=== PATIENT | male | born 1975 | race Caucasian/White ===

== ENCOUNTER 2023-10-26 11:43 | Emergency (ER) | payer SELFPAY ==
--- NOTE | ~2023-10-26 | XR_ITS ---
EXAMINATION: XR chest 2V DATE: 10/26/2023 12:59 INDICATION: Chest pain. Shortness of breath. TECHNIQUE: Frontal and lateral views of the chest were obtained. COMPARISON: None. FINDINGS: There is no pneumonia, pleural effusion, or pneumothorax. The heart size is normal. IMPRESSION: 1. No acute cardiopulmonary disease. Reviewed, dictated and finalized at location A.
[2023-10-26 11:48] VITALS: BP 124/103; PULSE 70; RESP 14; TEMP 36.4; O2SAT 98
--- NOTE | 2023-10-26 11:48 | ECG_ITS ---
Test Date: 2023-10-26 11:51:21 Measurements Intervals [place] Rate: 73 P: 53 CA: 157 QRS: -24 QRSD: 93 T: 20 QT: 372 QTc: 412 Interpretive Statements SINUS RHYTHM BORDERLINE R WAVE PROGRESSION, ANTERIOR LEADS BASELINE ARTIFACT- I, II, III, AVR, AVL, AVF, V3-V6 BORDERLINE ECG No previous ECG available for comparison Electronically Signed On 10-26-2023 14:16:57 CDT by Jose Ricardo D.O.
[2023-10-26 11:51] VITALS: PULSE 70; O2SAT 98
[2023-10-26 12:00] LABS: Basophils Percent Auto 0.4 % (0.2-1.2); Eosinophils Absolute Auto 0.1 K/mm3 (0-0.3); Eosinophils Percent Auto 0.9 % (0-4.4); Hematocrit 44.5 % (42.0-52.0); Hemoglobin 15.6 g/dL (14.0-18.0); Immature Granulocyte Absolute 0.06 K/mm3 (0.00-0.031); Immature Granulocyte Percent A 0.6 % (0-0.5); Lymphocytes Absolute Auto 1.89 K/mm3 (0.9-3.2); Lymphocytes Percent Auto 18.9 % (18.3-44.2); Mean Corpuscular HGB Conc 35.1 g/dl (32-36); Mean Corpuscular Hemoglobin 29.7 pg (26-34); Mean Corpuscular Volume 84.6 fl (80-100); Mean Platelet Volume 9.7 fl (7.4-10.4); Monocytes Absolute Auto 0.5 K/mm3 (0.1-0.6); Monocytes Percent Auto 4.5 % (2.6-8.5); Neutrophils Absolute Auto 7.5 K/mm3 (1.3-6.7); Neutrophils Percent Auto 74.7 % (45.5-73.1); Platelet Count Result 379 k/mm3 (150-375); Red Blood Count 5.26 M/mm3 (4.6-6.20); Red Cell Distribution Width 12.8 % (11.5-14.5)
[2023-10-26 12:14] LABS: INR 0.9; Partial Thromboplastin Time 27.8 Seconds (22.3-36.8); Prothrombin Time 12.5 Seconds (11.1-14.7)
[2023-10-26 12:16] LABS: Alanine Aminotransferase 30 U/L (6-50); Albumin Level 4.7 g/dL (3.5-5.1); Alkaline Phosphatase 88 U/L (38-126); Anion Gap 13 mmol/L (4-12); Aspartate Amino Transferase 23 U/L (17-59); Bilirubin,Total 0.5 mg/dL (0.2-1.3); Blood Urea Nitrogen 14 mg/dL (9-20); Calcium 8.9 mg/dL (8.4-10.2); Carbon Dioxide 19 mmol/L (22-30); Chloride 101 mmol/L (98-107); Estimated CRCL calculation 119 ml/min; Estimated Glomerular Filt Rate > 60; Glucose 312 mg/dL (65-110); Lipase 127 U/L (23-300); Potassium 3.8 mmol/L (3.4-5.0); Sodium 133 mmol/L (137-145)
[2023-10-26] MEDS: SODIUM CHLORIDE 0.9% IV 1,000 ML 999 ML IV CONT (12:16)
[2023-10-26] MEDS: ONDANSETRON INJ 4 MG/2 ML VIAL IV PUSH (12:17)
[2023-10-26] MEDS: MORPHINE SULFATE (*CRX) 4 MG/ML INJ IV PUSH (12:18)
[2023-10-26 12:27] LABS: Troponin I < 0.012 ng/mL (0.000-0.034)
[2023-10-26 12:33] VITALS: BP 141/106; PULSE 88; RESP 14; O2SAT 99
--- NOTE | 2023-10-26 13:35 | ED.GENADULT ---
HPI - General Adult General Chief complaint: Chest Pain Stated complaint: chest pain Time Seen by Provider: 10/26/23 11:56 History of Present Illness HPI narrative: Patient is a 48-year-old male who presents ER with nausea and vomiting. Began this morning. Has had similar episodes in the past. He was at [facility] a couple weeks ago and diagnosed with acid reflux. He has been taking Pepto-Bismol and no other medications. He originally improved with GI cocktail. Patient has history of diabetes but is untreated. He smokes marijuana regularly in the last use was last night. No abdominal pain he does have pressure moving up into his chest associated with this vomiting. No diarrhea or constipation. Denies urinary symptoms. No alleviating factors this morning Related Data Allergies Allergy/AdvReac Type Severity Reaction Status Date / Time No Known Allergies Allergy Verified 10/26/23 11:56 Review of Systems Review of Systems: All systems reviewed & are unremarkable except as noted in HPI and below Constitutional: Constitutional: Reports no additional constitutional complaints ENT: Reports system reviewed and no additional complaints, except as documented Cardiovascular: Cardiovascular: Reports chest pain, Denies rapid heart rate and Denies radiating jaw, neck or arm pain Respiratory: Respiratory: Reports no additional respiratory complaints Gastrointestinal: Gastrointestinal: Reports abdominal pain, Denies constipation, Reports heartburn, Denies diarrhea, Reports nausea and Reports vomiting Genitourinary: Genitourinary: Reports no additional male genitourinary complaints Neurologic: Reports system reviewed and no additional complaints, except as documented PMFSH Past Medical History Medical History (Updated 10/26/23 @ 15:25 by Connor Strauss MD) Diabetes Surgical History Surgical History (Updated 10/26/23 @ 14:45 by Connor Strauss MD) No pertinent past surgical history Exam Narrative: GENERAL: Uncomfortable-appearing, well-nourished, and in no acute distress. HEAD: Normocephalic, atraumatic. ENT: Mucous membranes moist. CHEST: Clear to auscultation. No respiratory distress. HEART: Regular rate and rhythm. Normal peripheral pulses. ABDOMEN: Soft, nontender, nondistended. EXTREMITIES: Normal range of motion. No edema. SKIN: Warm, dry, no rash. NEURO: Alert and oriented x3. PSYCH: Normal mood and affect. Course Course Emergency Course: Recommend f/u with a PCP, significant improvement with reglan, will d/c with a rx. Discussed needs f/u for group home tx of elevated glucose. Troponin negative x 2. Vital Signs Vital signs: Vital Signs Temperature 97.6 F 10/26/23 11:48 Pulse Rate 70 10/26/23 11:48 Respiratory Rate 14 10/26/23 11:48 Blood Pressure 124/103 H 10/26/23 11:48 Pulse Oximetry 98 10/26/23 11:48 Oxygen Delivery Room Air 10/26/23 11:48 Temperature 97.6 F 10/26/23 11:48 Pulse Rate 72 10/26/23 14:50 Respiratory Rate 15 10/26/23 14:50 Blood Pressure 132/85 10/26/23 14:50 Pulse Oximetry 95 10/26/23 14:50 Oxygen Delivery Room Air 10/26/23 11:51 Medical Decision Making Vital Signs Vital Signs: Vital Signs Temperature 97.6 F 10/26/23 11:48 Pulse Rate 70 10/26/23 11:48 Respiratory Rate 14 10/26/23 11:48 Blood Pressure 124/103 H 10/26/23 11:48 Pulse Oximetry 98 10/26/23 11:48 Oxygen Delivery Room Air 10/26/23 11:48 Temperature 97.6 F 10/26/23 11:48 Pulse Rate 72 10/26/23 14:50 Respiratory Rate 15 10/26/23 14:50 Blood Pressure 132/85 10/26/23 14:50 Pulse Oximetry 95 10/26/23 14:50 Oxygen Delivery Room Air 10/26/23 11:51 Lab Data 10/26/23 11:52 10/26/23 11:52 Labs: Lab Results 10/26/23 10/26/23 Range/Units 11:52 14:46 WBC 10.0 (4.5-10.0) K/mm3 RBC 5.26 (4.6-6.20) M/mm3 Hgb 15.6 (14.0-18.0) g/dL Hct 44.5 (42.0-52.0) % MCV 84.6
[2023-10-26] MEDS: BELLADONNA ALK/PHENOB ELIX 10 ML, MAG HYDROX/ALUMINUM HYD/SIMETH 30 ML, LIDOCAINE HCL 2... PO (13:44)
[2023-10-26 13:46] VITALS: BP 150/110; PULSE 59; RESP 14; O2SAT 100
[2023-10-26] MEDS: METOCLOPRAMIDE HCL INJ 10 MG/2 ML VIAL IV PUSH (14:10)
[2023-10-26 14:50] VITALS: BP 132/85; PULSE 72; RESP 15; O2SAT 95
--- NOTE | 2023-10-26 14:54 | ECG_ITS ---
Test Date: 2023-10-26 14:52:56 Measurements Intervals [place] Rate: 71 P: 50 VT: 170 QRS: -59 QRSD: 105 T: 32 QT: 388 QTc: 424 Interpretive Statements SINUS RHYTHM LEFT AXIS DEVIATION PATTERN CONSISTENT WITH PULMONARY DISEASE CONSIDER INFERIOR INFARCT, AGE INDETERMINATE ABNORMAL ECG Compared to ECG 10/26/2023 11:51:21 NO SIGNIFICANT CHANGE Electronically Signed On 10-26-2023 18:16:43 CDT by Jose Ricardo D.O.
[2023-10-26 15:13] LABS: Troponin I < 0.012 ng/mL (0.000-0.034)
== END 2023-10-26 15:45 | disposition home or self-care (01) ==
PROVIDERS: Emergency Medicine; Emergency Provider Emergency Medicine
DX: R11.2 Nausea with vomiting, unspecified (principal); E11.9 Type 2 diabetes mellitus without complications
CPT/HCPCS: 36415; 71046; 80053; 83690; 84484; 85025; 85610; 85730; 93005; 96361; 96374; 96375; 99284; A9270; J2270; J2405; J2765; J7030

== ENCOUNTER 2024-04-04 11:49 | Observation (INO) | payer SELFPAY ==
--- NOTE | ~2024-04-04 | CT_ITS ---
EXAMINATION: CT abdomen pelvis w con DATE: 04/04/2024 12:55 INDICATION: Abdominal pain, nausea and vomiting TECHNIQUE: Computed tomography (CT) of the abdomen and pelvis was performed with 100 mL Omnipaque-350 intravenous contrast. Automated exposure control and iterative reconstruction technique were employe d. The dose-length product was 1375.31 mGy-cm. COMPARISON: None FINDINGS: Calcified granuloma and mild discoid atelectasis in the lingula. Heart size is normal. No pericardial or pleural effusion. Heterogeneous attenuation of the liver with geographic region of subtly decreas ed attenuation the right hepatic lobe suggesting underlying hepatic steatosis. Within this region the re is a 2.5 cm 1 masslike region of higher attenuation with central focus of more prominent enhanceme nt the right now. Gallbladder, spleen, pancreas, bilateral adrenal glands and right foraminal and kid neys are normal. Bowels including the appendix are normal. Decompressed bladder is unremarkable. Smal l bilateral fat-containing inguinal hernias. Very small fat-containing umbilical hernia. No free intr aperitoneal gas or fluid. No pathologically enlarged abdominal or pelvic lymphadenopathy. Partially l umbarized S1 segment with 5 more cephalad nonrib-bearing lumbar segments. IMPRESSION: 1. No acute intra-abdominal/pelvic process. 2. Indeterminate 2.5 cm centrally enhancing lesion in the right hepatic lobe which could represent ne oplasm either benign or less likely malignant. Recommend further evaluation with multiphase pre and p ostcontrast MRI. 3. Small bilateral fat-containing inguinal hernias. Reviewed, dictated and finalized at location A. EGEE OPERATOR IMPRESSION: 1. No acute intra-abdominal/pelvic process. 2. Indeterminate 2.5 cm centrally enhancing lesion in the right hepatic lobe wh ich could represent neoplasm either benign or less likely malignant. Recommend further evaluation with multiphase pre and postcontrast MRI. 3. Small bilateral fat-containing inguinal hernias.
--- NOTE | ~2024-04-04 | MR_ITS ---
EXAMINATION: MR abdomen wo/w con DATE: 04/05/2024 14:03 INDICATION: 2.5 cm right hepatic lobe lesion TECHNIQUE: Magnetic resonance imaging (MRI) of the abdomen was performed without and with 20 mL Multi jesus intravenous contrast. Sequences included coronal T2-weighted SS-FSE, coronal and axial FS 2D-F IESTA, axial STIR FSE, axial T2-weighted SS-FSE, axial T2-weighted FS SS-FSE, axial diffusion-weighte d SE, axial dual-echo T1-weighted FSPGR, and axial and coronal T1-weighted LAVA. Postcontrast axial T 1-weighted LAVA images were obtained in a time course. Postcontrast coronal T1-weighted LAVA images w ere obtained. COMPARISON: CT dated 04/04/2024 FINDINGS: Heart size is normal. No pericardial or pleural effusion. There is a large region of hepatic steatosi s occupying the majority of segments 5 and 8 of the liver. Within segment 8 of the liver is the lesio n of concern identified on prior CT measuring roughly 2.3 cm in maximal diameter. The lesion has a ta rgetoid appearance with an outer rim of focal fatty sparing with early arterial enhancement which inc orporates on the subsequent images consistent with transient hepatic intensity difference. Within thi s peripheral band region is the true periphery of the lesion which measures 1.7 x 1.1 cm and which de monstrates early peripheral puddling of contrast which fills in on the more delayed imaging and which persists through the 10 minutes of imaging consistent with a hemangioma. There is a second 8 mm ryan ngioma more caudally in segment 5 of the liver which is T2 hyperintense and without discernible enhan cement on the early dynamic phase postcontrast imaging but which demonstrates enhancement on the 5 an d 10 minute delayed imaging. Gallbladder, spleen, pancreas, bilateral adrenal glands and kidneys are normal. Visualized portion of the bowels including the appendix are unremarkable. No pathologically e nlarged abdominal lymphadenopathy. Bones are unremarkable with normal marrow signal throughout. IMPRESSION: 1. Large geographic region of diffuse hepatic steatosis in segments 5 and 8 the liver containing a co uple hemangiomas with characteristic enhancement pattern. The larger hemangioma in segment 8 measures 1.7 x 1.1 cm which along with an associated peripheral rim of focal fatty sparing with transient hep atic intensity difference corresponds to the lesion of concern on prior CT. Reviewed, dictated and finalized at location A. AND BEVERAGE ORDER CLERK IMPRESSION: 1. Large geographic region of diffuse hepatic steatosis in segments 5 and 8 the liver containing a couple hemangiomas with characteristic enhancement pattern. The larger hemangioma in segment 8 measures 1.7 x 1.1 cm which along with an a ssociated peripheral rim of focal fatty sparing with transient hepatic intensit y difference corresponds to the lesion of concern on prior CT.
[2024-04-04 11:59] VITALS: BP 107/69; PULSE 108; RESP 16; TEMP 36.2; O2SAT 98
[2024-04-04 12:17] LABS: Basophils Percent Auto 0.3 % (0.2-1.2); Eosinophils Percent Auto 0.1 % (0-4.4); Hematocrit 49.5 % (42.0-52.0); Hemoglobin 17.4 g/dL (14.0-18.0); Immature Granulocyte Absolute 0.05 K/mm3 (0.00-0.031); Immature Granulocyte Percent A 0.4 % (0-0.5); Lymphocytes Absolute Auto 1.52 K/mm3 (0.9-3.2); Lymphocytes Percent Auto 12.2 % (18.3-44.2); Mean Corpuscular HGB Conc 35.2 g/dl (32-36); Mean Corpuscular Hemoglobin 30.1 pg (26-34); Mean Corpuscular Volume 85.6 fl (80-100); Mean Platelet Volume 9.4 fl (7.4-10.4); Monocytes Absolute Auto 0.5 K/mm3 (0.1-0.6); Monocytes Percent Auto 3.6 % (2.6-8.5); Neutrophils Absolute Auto 10.3 K/mm3 (1.3-6.7); Neutrophils Percent Auto 83.4 % (45.5-73.1); Platelet Count Result 383 k/mm3 (150-375); Red Blood Count 5.78 M/mm3 (4.6-6.20); White Blood Count 12.4 K/mm3 (4.5-10.0)
[2024-04-04] MEDS: ONDANSETRON INJ 4 MG/2 ML VIAL IV PUSH (12:17)
[2024-04-04 12:31] LABS: Alanine Aminotransferase 44 U/L (6-50); Alkaline Phosphatase 95 U/L (38-126); Anion Gap 16 mmol/L (4-12); Aspartate Amino Transferase 33 U/L (17-59); Bilirubin,Total 0.9 mg/dL (0.2-1.3); Blood Urea Nitrogen 18 mg/dL (9-20); Calcium 10.8 mg/dL (8.4-10.2); Carbon Dioxide 19 mmol/L (22-30); Chloride 97 mmol/L (98-107); Estimated CRCL calculation 89 ml/min; Estimated Glomerular Filt Rate > 60; Glucose 437 mg/dL (65-110); Lipase 101 U/L (23-300); Potassium 4.4 mmol/L (3.4-5.0); Sodium 132 mmol/L (137-145)
[2024-04-04 12:57] LABS: Add Urine Microscopic? YES; Appearance Urine Clear (Clear); Bacteria Urine None Seen /hpf; Bilirubin Urine Negative (Negative); Blood Urine Negative (Negative); Color Urine Yellow (Yellow); Glucose Urine UA 3+ mg/dL (Negative); Ketones Urine 3+ mg/dL (Negative); Leukocyte Esterase Ur Negative LEU/UL (Negative); Nitrate Urine Negative (Negative); Non Pathogenic Casts 0-2; Protein Urine 2+ mg/dL (Negative); RBC Urine 0-2 /hpf (0-2); Squamous Epithelial Cell Urine None Seen /hpf (Few); Urobilinogen Urine 0.2 mg/dL (<2.0); WBC Urine 0-5 /hpf (0-3); pH Urine 5.5 (5.0-9.0)
[2024-04-04] MEDS: SODIUM CHLORIDE 0.9% IV 1,000 ML 999 ML IV CONT ×3 (13:02→14:34)
[2024-04-04] MEDS: MORPHINE SULFATE (*CRX) 4 MG/ML INJ IV PUSH (13:03)
[2024-04-04] MEDS: PROCHLORPERAZINE EDISYLATE 10 MG/2 ML VIAL IV PUSH (13:03)
[2024-04-04] MEDS: PANTOPRAZOLE SODIUM IV 40 MG VIAL IV PUSH (13:03)
[2024-04-04 13:07] VITALS: BP 168/113; PULSE 101; RESP 16; O2SAT 91
[2024-04-04 13:25] VITALS: BP 156/103; PULSE 102; RESP 16; O2SAT 91
[2024-04-04 13:27] LABS: Beta-Hydroxybutyrate/Acetoacetate 1.73 mmol/L (0.02-0.27)
[2024-04-04 13:29] LABS: Fractional Inspired Oxygen 21 %; HCO3 VBG 21.2 mEq/l (24.0-30.0); PCO2 VBG 37.5 mmHg (42.0-48.0); PO2 VBG 39.8 mmHg (35.0-45.0)
[2024-04-04 13:34] LABS: Device ROOM AIR
--- NOTE | 2024-04-04 13:43 | ED.GENADULT ---
HPI - General Adult General Chief complaint: Nausea/Vomiting/Diarrhea Stated complaint: Vomiting Time Seen by Provider: 04/04/24 12:27 History of Present Illness HPI narrative: patient is a 48-year-old gentleman who presents emergency department with chief complaint of nausea vomiting and diarrhea. The patient reports the last 3 days been unable to keep anything down reports that he has had liquid stool and reports that he has had epigastric discomfort and a feeling of esophageal reflux. The patient reports that he has had not been officially diagnosed with diabetes but has a significant family history for diabetes. Related Data Allergies Allergy/AdvReac Type Severity Reaction Status Date / Time No Known Allergies Allergy Verified 10/26/23 11:56 Review of Systems Review of Systems: A 10 system review of systems was completed on the patient and is negative except for what is stated in the HPI. Nursing and ancillary documentation was reviewed. [facility] Past Medical History Medical History (Updated 04/04/24 @ 14:11 by Kady Umanzor PA-C) Morbid obesity Type 2 diabetes mellitus Surgical History Surgical History No pertinent past surgical history Exam Narrative: GENERAL: Well-appearing, well-nourished, and in no acute distress. HEAD: Normocephalic, atraumatic. EYES: PERRLA and EOMI. ENT: Nares clear, no rhinorrhea or epistaxis. Mucous membranes moist. NECK: Supple. CHEST: Clear to auscultation. No respiratory distress. HEART: Regular rate and rhythm. No murmur heard. Normal peripheral pulses. ABDOMEN: Soft, nontender, nondistended, normal active bowel sounds. EXTREMITIES: Normal range of motion. No edema. SKIN: Warm, dry, no rash. NEURO: No focal deficits. Alert and oriented x3. PSYCH: Normal mood and affect. Course Vital Signs Vital signs: Vital Signs Temperature 97.2 F L 04/04/24 11:59 Pulse Rate 108 H 04/04/24 11:59 Respiratory Rate 16 04/04/24 11:59 Blood Pressure 107/69 04/04/24 11:59 Pulse Oximetry 98 04/04/24 11:59 Temperature 97.2 F L 04/04/24 11:59 Pulse Rate 105 H 04/04/24 15:32 Respiratory Rate 16 04/04/24 15:32 Blood Pressure 133/80 04/04/24 15:32 Pulse Oximetry 98 04/04/24 15:32 Medical Decision Making MDM Narrative Medical decision making narrative: facial by includes hydration pancreatitis, colitis, diverticulitis laboratory studies were obtained on the showed a CBC with white count of 12 4 electrolytes showed a sodium 132 CO2 was 19 and a gap of 16 creatinine was 1.1 glucose was 437 liver enzymes were normal beta hydroxybutyrate was 1.73 urinalysis showed 2+ protein specific gravity 1.040 glucose of 3+ and 3+ ketones VBG showed a pH of 7.370 patient received 2 L of normal saline boluses Vital Signs Vital Signs: Vital Signs Temperature 97.2 F L 04/04/24 11:59 Pulse Rate 108 H 04/04/24 11:59 Respiratory Rate 16 04/04/24 11:59 Blood Pressure 107/69 04/04/24 11:59 Pulse Oximetry 98 04/04/24 11:59 Temperature 97.2 F L 04/04/24 11:59 Pulse Rate 105 H 04/04/24 15:32 Respiratory Rate 16 04/04/24 15:32 Blood Pressure 133/80 04/04/24 15:32 Pulse Oximetry 98 04/04/24 15:32 Lab Data 04/04/24 12:12 04/04/24 12:12 Labs: Lab Results 04/04/24 04/04/24 04/04/24 Range/Units 12:12 12:48 14:29 WBC 12.4 H (4.5-10.0) K/mm3 RBC 5.78 (4.6-6.20) M/mm3 Hgb 17.4 (14.0-18.0) g/dL Hct 49.5 (42.0-52.0) % MCV 85.6 (80-100) fl MCH 30.1 (26-34) pg MCHC 35.2 (32-36) g/dl RDW 13.0 (11.5-14.5) % Plt Count 383 H (150-375) k/mm3 MPV 9.4 (7.4-10.4) fl Immature Gran % (Auto) 0.4 (0-0.5) % Neut % (Auto) 83.4 H (45.5-73.1) % Lymph % (Auto) 12.2 L (18.3-44.2) % [place] % (Auto) 3.6 (2.6-8.5) % Eos % (Auto) 0.1 (0-4.4) % Baso % (Auto) 0.3 (0.2-1.2) % Lymph # (Auto) 1.52 (0.9-3.2) K/mm3 [place] # (Auto) 0.5 (0.1-0.6) K/mm3 Eos # (Auto) 0.0 (0-0.3) K/mm3 Baso # (Auto) 0.0 (0.0-0.1) K/mm3 Abs Immat Gran (auto) 0.05 H (0.00-0.031) K/mm3 Absolute Neuts (auto) 10.3 H (1.3-6.7) K/mm3 Absolute Nucleated RBC 0.000 (0.0-0.012) K/mm3 Nucleated RBC % 0.0 (0.0-0.2) % Sodium 132 L (137-145) mmol/L Potassium 4.4 (3.4-5.0) mmol/L Chloride 97 L (98-107) mmol/L Carbon Dioxide 19 L (22-30) mmol/L Anion Gap 16 H (4-12) mmol/L BUN 18 (9-20) mg/dL Creatinine 1.10 (0.7-1.3) mg/dL Estim Creat Clear Calc 89 ml/min Estimated GFR > 60 (59 - ) Glucose 437 H (65-110) mg/dL POC Capillary Glucose 349 H (65-105) mg/dl Hemoglobin A1c 10.5 H (<5.7) % Calcium 10.8 H (8.4-10.2) mg/dL Total Bilirubin 0.9 (0.2-1.3) mg/dL AST 33 (17-59) U/L ALT 44 (6-50) U/L Alkaline Phosphatase 95 (38-126) U/L Total Protein 8.0 (6.3-8.2) g/dL Albumin 5.0 (3.5-5.1) g/dL Lipase 101 (23-300) U/L Beta-Hydroxybutyrate/Acetoacetate 1.73 H (0.02-0.27) mmol/L Urine Color Yellow (Yellow) Urine Appearance Clear (Clear) Urine pH 5.5 (5.0-9.0) Ur Specific [place] 1.040 H (1.001-1.035) Urine Protein 2+ H (Negative) mg/dL Urine Glucose (UA) 3+ H (Negative) mg/dL Urine Ketones 3+ H (Negative) mg/dL Ur Blood (Man) Negative (Negative) Urine Nitrate Negative (Negative) Urine Bilirubin Negative (Negative) Urine Urobilinogen 0.2 (<2.0) mg/dL Leukocyte Esterase Rfl Negative (Negative) MAISHA/UL Urine RBC 0-2 (0-2) /hpf Urine WBC 0-5 (0-3) /hpf Ur Squamous Epith Cells None seen (Few) /hpf Urine Bacteria None seen /hpf Urine Casts 0-2 ABG Data ABG results: 04/04/24 13:15 VBG pH 7.370 VBG pCO2 37.5 L VBG pO2 39.8 VBG HCO3 21.2 L O2 Delivery Device Room air O2 Liters/Min Not Reportable FiO2 21 Discharge Plan Discharge Clinical Impression: Nausea vomiting and diarrhea, Acute hyperglycemia Patient Disposition: Still a Patient Condition: Stable Time of Disposition: 13:46
--- NOTE | 2024-04-04 14:05 | PM.IMHP ---
H&P: HPI History of Present Illness Date/Time: 04/04/24 15:00 Chief Complaint: Nausea and vomiting. Narrative: This is a 48-year-old male with untreated type 2 diabetes mellitus who presented to the emergency department via private vehicle for evaluation of nausea and vomiting. The patient provides the following history. He has not been feeling well for 3 days with a burning sensation in the epigastric region as well as nausea, vomiting, and now dry heaves. He has not been able to hold down any food or drink in this same time frame. Stools have been loose but are slowing down. He also endorses polydipsia and polyuria. He denies fever, chills, sweats, headache, neck ache, sinus congestion, sore throat, chest pain, shortness of breath, sinus congestion, cough, melena, hematochezia, dysuria, blurry vision, and nonhealing wounds. In the ED: He was afebrile on arrival. He has been in a sinus tachycardia in the low 100s. Blood pressures have been running a bit high. Labs were significant for WBC count of 12.4, sodium 132, chloride 97, carbon dioxide 18, anion gap 16, BUN 18, creatinine 1.10, glucose 437, calcium 10.8, beta hydroxybutyrate 1.73. Urinalysis was positive for 2+ protein, 3+ glucose, and 3+ ketones. Abdomen pelvis CT showed no acute intra-abdominal or pelvic process but an indeterminate 2.5 cm right hepatic lobe lesion was seen. He received 2 L normal saline, pantoprazole 40 mg, prochlorperazine 10 mg, and ondansetron 4 mg and he continues to have nausea and vomiting. He is being admitted in this setting for further treatment. Review of Systems Review of Systems: 12 systems were reviewed and are negative except for as per HPI. [facility] Past Medical History Medical History Morbid obesity Type 2 diabetes mellitus Surgical History Surgical History No pertinent past surgical history Family History Family History (Updated 04/04/24 @ 20:14 by Kady Umanzor PA-C) Other Diabetes mellitus Social History Social History (Updated 04/04/24 @ 20:15 by Kady Umanzor PA-C) Social History: Surrogate medical decision maker: Marcelle Velez, mother. Code status: Full code. Smoking status: Former smoker Alcohol intake: never Substance use: current Substance use type: marijuana Do You Feel Safe in your Home?: Yes Lack of Transportation: No Lack of Food: Never True Current Housing: I Have Housing Concerned About Future Housing: No Difficulty Paying Gas/Electric Bills: No Difficulty Paying for Meds: No Currently Unemployed: No Education: Associate Degree Difficulty w/ Childcare or Family Care: No Additional living arrangements comments: Lives with family in [place]. 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 Spiritual care concerns: No Meds Home Medications and Allergies Home Medications ?Medication ?Instructions ?Recorded ?Confirmed ?Type No Home Medications 04/04/24 04/04/24 History Allergies Allergy/AdvReac Type Severity Reaction Status Date / Time No Known Allergies Allergy Verified 10/26/23 11:56 Vital Signs Vital Signs - 24 hr 04/04/24 11:59 04/04/24 13:07 04/04/24 13:25 Temperature 97.2 F L Pulse Rate 108 H 101 H 102 H Respiratory Rate 16 16 16 Blood Pressure 107/69 168/113 H 156/103 H Pulse Oximetry 98 91 91 Exam Narrative: General: Mildly ill-appearing male supine in bed in no distress. Weight: 115 kg. BMI: 40.9 HEENT: PERRL, EOMI. Sclera anicteric. Tacky mucous membranes. Neck: Supple. Exam limited due to neck circumference. Respiratory: Lungs are clear to auscultation bilaterally. Cardiovascular: Regular rate and rhythm with S1-S2. Gastrointestinal: Abdomen is soft, obese, and nondistended with positive bowel sounds. Mildly tender to deeper palpation epigastric region. No guarding or rebound tenderness. Skin: Warm and dry. Extremities: No cyanosis, clubbing, or edema. Radial and pedal pulses intact. Neurological: Alert. Cranial nerves 2-12 are grossly intact. No gross focal deficits to casual conversation. Psychiatric: Appropriate mood and affect. H&P: Results Labs Labs: Short CBC 04/04/24 Range/Units 12:12 WBC 12.4 H (4.5-10.0) K/mm3 Hgb 17.4 (14.0-18.0) g/dL Hct 49.5 (42.0-52.0) % Plt Count 383 H (150-375) k/mm3 BMP 04/04/24 12:12 Sodium 132 L Potassium 4.4 Chloride 97 L Carbon Dioxide 19 L BUN 18 Creatinine 1.10 Glucose 437 H Calcium 10.8 H Liver Function 04/04/24 Range/Units 12:12 Total Bilirubin 0.9 (0.2-1.3) mg/dL AST 33 (17-59) U/L ALT 44 (6-50) U/L Alkaline Phosphatase 95 (38-126) U/L Albumin 5.0 (3.5-5.1) g/dL Urine 04/04/24 Range/Units 12:48 Urine Color Yellow (Yellow) Urine Appearance Clear (Clear) Urine pH 5.5 (5.0-9.0) Ur Specific [place] 1.040 H (1.001-1.035) Urine Protein 2+ H (Negative) mg/dL Urine Glucose (UA) 3+ H (Negative) mg/dL ABG ABG results: 04/04/24 13:15 VBG pH 7.370 VBG pCO2 37.5 L VBG pO2 39.8 VBG HCO3 21.2 L O2 Delivery Device Room air O2 Liters/Min Not Reportable FiO2 21 Assessment and Plan Assessment and plan (1) Type 2 diabetes mellitus with hyperglycemia: Code(s): E11.65 - Type 2 diabetes mellitus with hyperglycemia Status: Acute (2) Dehydration: Code(s): E86.0 - Dehydration Status: Acute (3) Elevated blood pressure reading: Code(s): R03.0 - Elevated blood-pressure reading, without diagnosis of hypertension Status: Acute (4) Lesion of right lobe of liver: Code(s): K76.9 - Liver disease, unspecified Status: Acute (5) Morbid obesity: Code(s): E66.01 - Morbid (severe) obesity due to excess calories Status: Acute Plan The patient presented to the emergency department for evaluation of nausea and vomiting as detailed HPI. Labs, imaging, EKG, and all reports were personally reviewed. He is on the verge of mild diabetic ketoacidosis with hyperglycemia, ketonuria, mildly elevated beta hydroxybutyrate, and anion gap 16. pH is above 7.370 and I think is numbers will improve with aggressive IV fluids and sliding scale insulin. Hemoglobin A1c is pending but I suspect he will need to be started on long-acting insulin initially. Consult dietitian and healthcare educator. Blood pressures are running a bit high and will be monitored closely as he may very well need to be started on antihypertensives. Radiologist recommends pre and post contrast MRI of the abdomen to evaluate a 2.5 cm right hepatic lobe lesion. He does not have a primary care provider and will need someone to follow-up with on discharge. His home medications will be reviewed and resumed as appropriate. Findings and treatment plan were discussed with the patient. Questions were solicited and answered to satisfaction. The patient's medical management will be taken over by the hospitalist team in a.m. Quality VTE Prophylaxis VTE prophylaxis: pharmacologic ordered The patient has been admitted under observation status. Hospitalist MIPS Advance Care Plan I have confirmed that the patient's Advanced Care Plan is present, code status is documented, or surrogate decision maker is listed in patient medical record.: Yes Medication Reconciliation I have utilized all available resources to obtain, update and review the patients current medications (includes all prescriptions, OTC, herbals, cannabis, and nutritional supplements).: Yes
[2024-04-04 14:31] LABS: Glucose Point of Care 349 mg/dl (65-105)
[2024-04-04 14:38] LABS: Hemoglobin A1C 10.5 % (<5.7)
[2024-04-04 15:08] LABS: Glucose Point of Care 322 mg/dl (65-105)
[2024-04-04 15:32] VITALS: BP 133/80; PULSE 105; RESP 16; O2SAT 98
[2024-04-04] MEDS: INSULIN ASPART (*BKC) 100 UNITS/ML SUB-Q ×3 (15:33→22:36)
[2024-04-04 16:19] LABS: Anion Gap 5 mmol/L (4-12); Blood Urea Nitrogen 14 mg/dL (9-20); Calcium 7.7 mg/dL (8.4-10.2); Carbon Dioxide 21 mmol/L (22-30); Chloride 105 mmol/L (98-107); Estimated CRCL calculation 120 ml/min; Estimated Glomerular Filt Rate > 60; Glucose 289 mg/dL (65-110); Potassium 4.6 mmol/L (3.4-5.0); Sodium 131 mmol/L (137-145)
[2024-04-04 16:39] LABS: Glucose Point of Care 290 mg/dl (65-105)
[2024-04-04 17:00] VITALS: BP 125/92; BP 139/87; PULSE 104; PULSE 88; RESP 16; RESP 18; O2SAT 100; O2SAT 98
[2024-04-04 17:23] LABS: Glucose Point of Care 265 mg/dl (65-105)
[2024-04-04 17:39] VITALS: BMI 40.9
--- NOTE | 2024-04-04 17:47 | ADMGEN ---
This patient, Jigar Velez, was admitted to 3 [facility] Surg Room 315-01. Patient/family oriented to hospital policies and general routines including ID bracelet, bed and alarms, visiting hours, pain management, procedures, bathroom and other care routines, personal items, smoking policy, room service/diet, and visiting hours. Information on how to activate the Rapid Response Team has been discussed. Patient/Family are encouraged to report perceived risks to care and to ask questions if they do not understand what they are told or what they should do.
[2024-04-04] MEDS: BELLADONNA ALK/PHENOB ELIX 10 ML, MAG HYDROX/ALUMINUM HYD/SIMETH 30 ML, LIDOCAINE 2% VI... PO (18:35)
[2024-04-04 20:00] VITALS: BP 113/65; PULSE 97; RESP 16; TEMP 36.4; O2SAT 95
[2024-04-04] MEDS: INSULIN GLARGINE (*BKC) 100 UNITS/ML 23 UNITS SUB-Q (22:35)
[2024-04-04] MEDS: LACTATED RINGERS 1,000 ML 100 ML IV CONT (22:36)
[2024-04-04 23:02] LABS: Glucose Point of Care 248 mg/dl (65-105)
[2024-04-05] VITALS (7 sets, daily range): BP systolic 123–144; BP diastolic 78–105; PULSE 61–100; RESP 14–20; TEMP 36.4–37.1; O2SAT 96–100
[2024-04-05] MEDS: ACETAMINOPHEN 325 MG TABLET 650 MG PO (02:35)
[2024-04-05 06:16] LABS: Basophils Absolute Auto 0.1 K/mm3 (0.0-0.1); Basophils Percent Auto 0.5 % (0.2-1.2); Eosinophils Absolute Auto 0.1 K/mm3 (0-0.3); Hematocrit 43.7 % (42.0-52.0); Hemoglobin 14.8 g/dL (14.0-18.0); Immature Granulocyte Absolute 0.04 K/mm3 (0.00-0.031); Immature Granulocyte Percent A 0.4 % (0-0.5); Lymphocytes Absolute Auto 4.85 K/mm3 (0.9-3.2); Lymphocytes Percent Auto 43.8 % (18.3-44.2); Mean Corpuscular HGB Conc 33.9 g/dl (32-36); Mean Corpuscular Hemoglobin 29.8 pg (26-34); Mean Corpuscular Volume 88.1 fl (80-100); Mean Platelet Volume 9.2 fl (7.4-10.4); Monocytes Absolute Auto 0.7 K/mm3 (0.1-0.6); Monocytes Percent Auto 5.9 % (2.6-8.5); Neutrophils Absolute Auto 5.4 K/mm3 (1.3-6.7); Neutrophils Percent Auto 48.4 % (45.5-73.1); Platelet Count Result 281 k/mm3 (150-375); Red Blood Count 4.96 M/mm3 (4.6-6.20); Red Cell Distribution Width 12.8 % (11.5-14.5); White Blood Count 11.1 K/mm3 (4.5-10.0)
[2024-04-05 06:28] LABS: Anion Gap 2 mmol/L (4-12); Blood Urea Nitrogen 13 mg/dL (9-20); Calcium 8.8 mg/dL (8.4-10.2); Carbon Dioxide 30 mmol/L (22-30); Chloride 104 mmol/L (98-107); Estimated CRCL calculation 107 ml/min; Estimated Glomerular Filt Rate > 60; Glucose 170 mg/dL (65-110); Magnesium 1.7 mg/dL (1.6-2.3); Potassium 3.8 mmol/L (3.4-5.0); Sodium 136 mmol/L (137-145)
[2024-04-05 07:46] LABS: Glucose Point of Care 194 mg/dl (65-105)
[2024-04-05] MEDS: ONDANSETRON INJ 4 MG/2 ML VIAL IV PUSH (09:34)
--- NOTE | 2024-04-05 10:42 | PM.IMPN ---
Progress Note: A&P Assessment and Plan (1) Type 2 diabetes mellitus with hyperglycemia: Code(s): E11.65 - Type 2 diabetes mellitus with hyperglycemia Status: Acute (2) Dehydration: Code(s): E86.0 - Dehydration Status: Acute (3) Elevated blood pressure reading: Code(s): R03.0 - Elevated blood-pressure reading, without diagnosis of hypertension Status: Acute (4) Lesion of right lobe of liver: Code(s): K76.9 - Liver disease, unspecified Status: Acute (5) Morbid obesity: Code(s): E66.01 - Morbid (severe) obesity due to excess calories Status: Acute Plan Type 2 diabetes with hyperglycemia A1c 10.5 Continue Lantus 23 units, pre meal insulin 7 units, sliding scale insulin with Accu-Cheks. Monitor Diabetic diet natural resources extension educator consulted. Hepatic lesion rule out neoplasm MRI abdomen pending. Obesity counseled about lifestyle modificationi DVT prophylaxis on Sq Lovenox Discharge contingent on MRI Subjective Date/time seen: 04/05/24 10:42 Interval history: COmfortable at bedside MRI pending for hepatic lesion Review of Systems Review of Systems: 12 systems were reviewed and are negative except for as per HPI. Exam Narrative: General: Mildly ill-appearing male supine in bed in no distress. Weight: 115 kg. BMI: 40.9 HEENT: PERRL, EOMI. Sclera anicteric. Tacky mucous membranes. Neck: Supple. Exam limited due to neck circumference. Respiratory: Lungs are clear to auscultation bilaterally. Cardiovascular: Regular rate and rhythm with S1-S2. Gastrointestinal: Abdomen is soft, obese, and nondistended with positive bowel sounds. Mildly tender to deeper palpation epigastric region. No guarding or rebound tenderness. Skin: Warm and dry. Extremities: No cyanosis, clubbing, or edema. Radial and pedal pulses intact. Neurological: Alert. Cranial nerves 2-12 are grossly intact. No gross focal deficits to casual conversation. Psychiatric: Appropriate mood and affect. Objective Data Vital Signs Vital Signs: Vital Signs - 24 hr 04/04/24 11:59 04/04/24 13:07 04/04/24 13:25 Temperature 97.2 F L Pulse Rate 108 H 101 H 102 H Respiratory Rate 16 16 16 Blood Pressure 107/69 168/113 H 156/103 H Pulse Oximetry 98 91 91 Oxygen Delivery Fraction of Inspired Oxygen 04/04/24 15:32 04/04/24 17:00 04/04/24 17:00 Temperature Pulse Rate 105 H 104 H 88 Respiratory Rate 16 16 18 Blood Pressure 133/80 139/87 125/92 H Pulse Oximetry 98 98 100 Oxygen Delivery Fraction of Inspired Oxygen 04/04/24 17:55 04/04/24 20:00 04/05/24 02:45 Temperature 97.6 F 98.1 F Pulse Rate 97 72 Respiratory Rate 16 20 Blood Pressure 113/65 137/93 H Pulse Oximetry 95 99 Oxygen Delivery Room Air Fraction of Inspired Oxygen 04/05/24 06:00 04/05/24 08:00 04/05/24 08:54 Temperature 97.5 F L 98.2 F Pulse Rate 65 61 Respiratory Rate 18 18 Blood Pressure 126/78 136/91 H Pulse Oximetry 96 98 96 Oxygen Delivery Room Air Fraction of Inspired Oxygen 21 Intake/Output Intake/Output: Intake & Output 04/02/24 04/03/24 04/04/24 04/05/24 23:59 23:59 23:59 23:59 Intake Total 3000 740 Output Total 800 Balance 3000 -60 Meds/Results Medications: Active Medications Generic Name Dose Route Start Last Admin Trade Name Freq PRN Reason Stop Dose Admin Acetaminophen 650 mg 04/04/24 14:19 04/05/24 02:35 Acetaminophen 325 Mg Tablet PO 650 mg Q6H PRN Administration Mild Pain (1-3) or Fever Al Hydrox/Mg Hydrox/Simethicone 30 ml 04/05/24 10:01 Mag Hydrox/Al Hydrox/Simeth 30 Ml Udc PO Q6H PRN Indigestion Calcium Carbonate 200 mg 04/04/24 20:19 Calcium Carbonate (Tums) 500 Mg (200 Mg Elemental) PO Q6H PRN Indigestion Dextrose 12.5 gm 04/04/24 16:39 Dextrose 50% 25 Gm/50 Ml Syringe IV PUSH PRN PRN Hypoglycemia Protocol Glucagon 1 mg 04/04/24 16:39 Glucagon For Inj 1 Mg Vial IM PRN PRN Hypoglycemia Protocol Glucose 15 gm 04/04/24 16:39 Glucose Oral Gel 15 Gm Of Glucse In 37.5 Gm Tube PO PRN PRN Hypoglycemia Protocol Dextrose 1,000 mls @ 100 mls/hr 04/04/24 16:39 Dextrose 5% 1,000 Ml IVPB PRN PRN Hypoglycemia Protocol Insulin Aspart 3 - 6 units 04/04/24 17:00 04/04/24 17:17 Insulin Aspart (*Bkc) 100 Units/Ml SUB-Q 4 units TIDWM VENTURA Administration Protocol Insulin Aspart 1 - 3 units 04/04/24 21:00 04/04/24 22:36 Insulin Aspart (*Bkc) 100 Units/Ml SUB-Q 1 units HS VENTURA Administration Protocol Insulin Glargine 23 units 04/04/24 21:00 04/04/24 22:35 Insulin Glargine (*Bkc) 100 Units/Ml 0.2 units/kg (23 units) 23 units SUB-Q Administration [facility] Ondansetron HCl 4 mg 04/04/24 14:19 04/05/24 09:34 Ondansetron Inj 4 Mg/2 Ml Vial IV PUSH 4 mg Q6H PRN Administration Nausea And Vomiting Radiology Results: ITS Impressions Abdomen/Pelvis CT 04/04/24 13:00 IMPRESSION: 1. No acute intra-abdominal/pelvic process. 2. Indeterminate 2.5 cm centrally enhancing lesion in the right hepatic lobe which could represent neoplasm either benign or less likely malignant. Recommend further evaluation with multiphase pre and postcontrast MRI. 3. Small bilateral fat-containing inguinal hernias. Labs Labs: Laboratory Results - last 24 hr 04/04/24 04/04/24 04/04/24 12:12 12:48 13:15 WBC 12.4 H RBC 5.78 Hgb 17.4 Hct 49.5 MCV 85.6 MCH 30.1 MCHC 35.2 RDW 13.0 Plt Count 383 H MPV 9.4 Immature Gran % (Auto) 0.4 Neut % (Auto) 83.4 H Lymph % (Auto) 12.2 L [place] % (Auto) 3.6 Eos % (Auto) 0.1 Baso % (Auto) 0.3 Lymph # (Auto) 1.52 [place] # (Auto) 0.5 Eos # (Auto) 0.0 Baso # (Auto) 0.0 Abs Immat Gran (auto) 0.05 H Absolute Neuts (auto) 10.3 H Absolute Nucleated RBC 0.000 Nucleated RBC % 0.0 VBG pH 7.370 VBG pCO2 37.5 L VBG pO2 39.8 VBG HCO3 21.2 L O2 Delivery Device Room air O2 Liters/Min Not Reportable FiO2 21 Sodium 132 L Potassium 4.4 Chloride 97 L Carbon Dioxide 19 L Anion Gap 16 H BUN 18 Creatinine 1.10 Estim Creat Clear Calc 89 Estimated GFR > 60 Glucose 437 H POC Capillary Glucose Hemoglobin A1c 10.5 H Calcium 10.8 H Magnesium Total Bilirubin 0.9 AST 33 ALT 44 Alkaline Phosphatase 95 Total Protein 8.0 Albumin 5.0 Lipase 101 Beta-Hydroxybutyrate/Acetoacetate 1.73 H Urine Color Yellow Urine Appearance Clear Urine pH 5.5 Ur Specific [place] 1.040 H Urine Protein 2+ H Urine Glucose (UA) 3+ H Urine Ketones 3+ H Ur Blood (Man) Negative Urine Nitrate Negative Urine Bilirubin Negative Urine Urobilinogen 0.2 Leukocyte Esterase Rfl Negative Urine RBC 0-2 Urine WBC 0-5 Ur Squamous Epith Cells None seen Urine Bacteria None seen Urine Casts 0-2 04/04/24 04/04/24 04/04/24 14:29 15:06 15:35 WBC RBC Hgb Hct MCV MCH MCHC RDW Plt Count MPV Immature Gran % (Auto) Neut % (Auto) Lymph % (Auto) [place] % (Auto) Eos % (Auto) Baso % (Auto) Lymph # (Auto) [place] # (Auto) Eos # (Auto) Baso # (Auto) Abs Immat Gran (auto) Absolute Neuts (auto) Absolute Nucleated RBC Nucleated RBC % VBG pH VBG pCO2 VBG pO2 VBG HCO3 O2 Delivery Device O2 Liters/Min FiO2 Sodium 131 L Potassium 4.6 Chloride 105 Carbon Dioxide 21 L Anion Gap 5 BUN 14 Creatinine 0.80 Estim Creat Clear Calc 120 Estimated GFR > 60 Glucose 289 H POC Capillary Glucose 349 H 322 H Hemoglobin A1c Calcium 7.7 L Magnesium Total Bilirubin AST ALT Alkaline Phosphatase Total Protein Albumin Lipase Beta-Hydroxybutyrate/Acetoacetate Urine Color Urine Appearance Urine pH Ur Specific [place] Urine Protein Urine Glucose (UA) Urine Ketones Ur Blood (Man) Urine Nitrate Urine Bilirubin Urine Urobilinogen Leukocyte Esterase Rfl Urine RBC Urine WBC Ur Squamous Epith Cells Urine Bacteria Urine Casts 04/04/24 04/04/24 04/04/24 16:37 17:16 22:31 WBC RBC Hgb Hct MCV MCH MCHC RDW Plt Count MPV Immature Gran % (Auto) Neut % (Auto) Lymph % (Auto) [place] % (Auto) Eos % (Auto) Baso % (Auto) Lymph # (Auto) [place] # (Auto) Eos # (Auto) Baso # (Auto) Abs Immat Gran (auto) Absolute Neuts (auto) Absolute Nucleated RBC Nucleated RBC % VBG pH VBG pCO2 VBG pO2 VBG HCO3 O2 Delivery Device O2 Liters/Min FiO2 Sodium Potassium Chloride Carbon Dioxide Anion Gap BUN Creatinine Estim Creat Clear Calc Estimated GFR Glucose POC Capillary Glucose 290 H 265 H 248 H Hemoglobin A1c Calcium Magnesium Total Bilirubin AST ALT Alkaline Phosphatase Total Protein Albumin Lipase Beta-Hydroxybutyrate/Acetoacetate Urine Color Urine Appearance Urine pH Ur Specific [place] Urine Protein Urine Glucose (UA) Urine Ketones Ur Blood (Man) Urine Nitrate Urine Bilirubin Urine Urobilinogen Leukocyte Esterase Rfl Urine RBC Urine WBC Ur Squamous Epith Cells Urine Bacteria Urine Casts 04/05/24 04/05/24 06:00 07:43 WBC 11.1 H RBC 4.96 Hgb 14.8 Hct 43.7 MCV 88.1 MCH 29.8 MCHC 33.9 RDW 12.8 Plt Count 281 MPV 9.2 Immature Gran % (Auto) 0.4 Neut % (Auto) 48.4 Lymph % (Auto) 43.8 [place] % (Auto) 5.9 Eos % (Auto) 1.0 Baso % (Auto) 0.5 Lymph # (Auto) 4.85 H [place] # (Auto) 0.7 H Eos # (Auto) 0.1 Baso # (Auto) 0.1 Abs Immat Gran (auto) 0.04 H Absolute Neuts (auto) 5.4 Absolute Nucleated RBC 0.000 Nucleated RBC % 0.0 VBG pH VBG pCO2 VBG pO2 VBG HCO3 O2 Delivery Device O2 Liters/Min FiO2 Sodium 136 L Potassium 3.8 Chloride 104 Carbon Dioxide 30 Anion Gap 2 L BUN 13 Creatinine 0.90 Estim Creat Clear Calc 107 Estimated GFR > 60 Glucose 170 H POC Capillary Glucose 194 H Hemoglobin A1c Calcium 8.8 Magnesium 1.7 Total Bilirubin AST ALT Alkaline Phosphatase Total Protein Albumin Lipase Beta-Hydroxybutyrate/Acetoacetate Urine Color Urine Appearance Urine pH Ur Specific [place] Urine Protein Urine Glucose (UA) Urine Ketones Ur Blood (Man) Urine Nitrate Urine Bilirubin Urine Urobilinogen Leukocyte Esterase Rfl Urine RBC Urine WBC Ur Squamous Epith Cells Urine Bacteria Urine Casts Quality VTE Prophylaxis VTE prophylaxis: pharmacologic ordered
[2024-04-05] MEDS: BELLADONNA ALK/PHENOB ELIX 10 ML, MAG HYDROX/ALUMINUM HYD/SIMETH 30 ML, LIDOCAINE 2% VI... PO (11:02)
[2024-04-05 11:24] LABS: Glucose Point of Care 383 mg/dl (65-105)
[2024-04-05] MEDS: INSULIN ASPART (*BKC) 100 UNITS/ML 7 UNITS SUB-Q (12:19)
[2024-04-05] MEDS: ENOXAPARIN 40 MG/0.4 ML SYRINGE SUB-Q (12:20)
[2024-04-05] MEDS: INSULIN ASPART (*BKC) 100 UNITS/ML SUB-Q ×2 (12:21→21:13)
--- NOTE | 2024-04-05 15:34 | P.PNIM_ITS ---
Progress Note: A&P Assessment and Plan (1) Type 2 diabetes mellitus with hyperglycemia: Code(s): E11.65 - Type 2 diabetes mellitus with hyperglycemia Status: Acute Assessment and Plan: - Blood glucose elevated. - Meal time insulin adjusted. - Continue to adjust insulin as needed. - certified breastfeeding educator consulted. (2) Dehydration: Code(s): E86.0 - Dehydration Status: Acute Assessment and Plan: - Likely related to above. - Cr wnl. - Tolerating meals well. - IVF discontinued. (3) Elevated blood pressure reading: Code(s): R03.0 - Elevated blood-pressure reading, without diagnosis of hypertension Status: Acute Assessment and Plan: - Started on Lisinopril. - Monitor and adjust meds as needed. (4) Lesion of right lobe of liver: Code(s): K76.9 - Liver disease, unspecified Status: Acute Assessment and Plan: - MRI abdomen ordered. - Follow results. - Further mgt pending MRI findings. (5) Morbid obesity: Code(s): E66.01 - Morbid (severe) obesity due to excess calories Status: Acute Assessment and Plan: - Encouraged with lifestyle modifications, including diet and exercise. Time Spent With Patient Time with patient: 15 - 25 minutes Subjective Date/time seen: 04/05/24 10:35 Patient seated on bed yelling that he's not getting any assistance with regards to his chest discomfort. States has been vomiting and hasn't received any assistance and his epigastric area hurts too. States want liquid or IV medications for his discomfort as he can't swallow pills but pt on regular diet and tolerating well. Interval history: Pt seated on bed very upset and yelling at staff, including me, that nobody is attending to his needs. Review of Systems Review of Systems: ROS unobtainable: Yes other (Patient refusing to answer questions.) Exam Narrative: General: Obese pt, very upset and rude. HEENT: PERRL, EOMI. Sclera anicteric. Tacky mucous membranes. Neck: Supple. Respiratory: Lungs are clear to auscultation bilaterally. Cardiovascular: Regular rate and rhythm. Gastrointestinal: Abdomen soft, obese, and nondistended with +ve BS X4 quadrants. Skin: Warm and dry. Extremities: No cyanosis, clubbing, or edema. Radial and pedal pulses intact. Neurological: Alert. CN II-XII are grossly intact. Psychiatric: Appropriate mood and affect. Objective Data Vital Signs Vital Signs: Vital Signs - 24 hr 04/04/24 17:00 04/04/24 17:00 04/04/24 17:55 Temperature Pulse Rate 104 H 88 Respiratory Rate 16 18 Blood Pressure 139/87 125/92 H Pulse Oximetry 98 100 Oxygen Delivery Room Air Fraction of Inspired Oxygen 04/04/24 20:00 04/05/24 02:45 04/05/24 06:00 Temperature 97.6 F 98.1 F 97.5 F L Pulse Rate 97 72 65 Respiratory Rate 16 20 18 Blood Pressure 113/65 137/93 H 126/78 Pulse Oximetry 95 99 96 Oxygen Delivery Fraction of Inspired Oxygen 04/05/24 08:00 04/05/24 08:54 04/05/24 12:00 Temperature 98.2 F 98.7 F Pulse Rate 61 100 Respiratory Rate 18 20 Blood Pressure 136/91 H 144/95 H Pulse Oximetry 98 96 96 Oxygen Delivery Room Air Fraction of Inspired Oxygen 21 Intake/Output Intake/Output: Intake & Output 04/02/24 04/03/24 04/04/24 04/05/24 23:59 23:59 23:59 23:59 Intake Total 3000 980 Output Total 800 Balance 3000 180 Meds/Results Medications: Active Medications Generic Name Dose Route Start Last Admin Trade Name Freq PRN Reason Stop Dose Admin Acetaminophen 650 mg 04/04/24 14:19 04/05/24 02:35 Acetaminophen 325 Mg Tablet PO 650 mg Q6H PRN Administration Mild Pain (1-3) or Fever Al Hydrox/Mg Hydrox/Simethicone 30 ml 04/05/24 10:01 Mag Hydrox/Al Hydrox/Simeth 30 Ml Udc PO Q6H PRN Indigestion Calcium Carbonate 200 mg 04/04/24 20:19 Calcium Carbonate (Tums) 500 Mg (200 Mg Elemental) PO Q6H PRN Indigestion Dextrose 12.5 gm 04/04/24 16:39 Dextrose 50% 25 Gm/50 Ml Syringe IV PUSH PRN PRN Hypoglycemia Protocol Enoxaparin Sodium 40 mg 04/05/24 11:30 04/05/24 12:20 Enoxaparin 40 Mg/0.4 Ml Syringe SUB-Q 40 mg DAILY VENTURA Administration Glucagon 1 mg 04/04/24 16:39 Glucagon For Inj 1 Mg Vial IM PRN PRN Hypoglycemia Protocol Glucose 15 gm 04/04/24 16:39 Glucose Oral Gel 15 Gm Of Glucse In 37.5 Gm Tube PO PRN PRN Hypoglycemia Protocol Dextrose 1,000 mls @ 100 mls/hr 04/04/24 16:39 Dextrose 5% 1,000 Ml IVPB PRN PRN Hypoglycemia Protocol Ibuprofen 400 mg/ Sodium 104 mls @ 208 mls/hr 04/05/24 13:07 Chloride IVPB Q6H PRN Pain Rated 4-6 Insulin Aspart 3 - 6 units 04/04/24 17:00 04/05/24 12:21 Insulin Aspart (*Bkc) 100 Units/Ml SUB-Q 6 units TIDWM VENTURA Administration Protocol Insulin Aspart 1 - 3 units 04/04/24 21:00 04/04/24 22:36 Insulin Aspart (*Bkc) 100 Units/Ml SUB-Q 1 units HS [facility] Administration Protocol Insulin Aspart 7 units 04/05/24 12:00 04/05/24 12:19 Insulin Aspart (*Bkc) 100 Units/Ml SUB-Q 7 units TIDWM VENTURA Administration Insulin Glargine 23 units 04/04/24 21:00 04/04/24 22:35 Insulin Glargine (*Bkc) 100 Units/Ml 0.2 units/kg (23 units) 23 units SUB-Q Administration [facility] Ondansetron HCl 4 mg 04/04/24 14:19 04/05/24 09:34 Ondansetron Inj 4 Mg/2 Ml Vial IV PUSH 4 mg Q6H PRN Administration Nausea And Vomiting Radiology Results: ITS Impressions Abdomen/Pelvis CT 04/04/24 13:00 IMPRESSION: 1. No acute intra-abdominal/pelvic process. 2. Indeterminate 2.5 cm centrally enhancing lesion in the right hepatic lobe which could represent neoplasm either benign or less likely malignant. Recommend further evaluation with multiphase pre and postcontrast MRI. 3. Small bilateral fat-containing inguinal hernias. Labs Labs: Laboratory Results - last 24 hr 04/04/24 04/04/24 04/04/24 15:35 16:37 17:16 WBC RBC Hgb Hct MCV MCH MCHC RDW Plt Count MPV Immature Gran % (Auto) Neut % (Auto) Lymph % (Auto) [place] % (Auto) Eos % (Auto) Baso % (Auto) Lymph # (Auto) [place] # (Auto) Eos # (Auto) Baso # (Auto) Abs Immat Gran (auto) Absolute Neuts (auto) Absolute Nucleated RBC Nucleated RBC % Sodium 131 L Potassium 4.6 Chloride 105 Carbon Dioxide 21 L Anion Gap 5 BUN 14 Creatinine 0.80 Estim Creat Clear Calc 120 Estimated GFR > 60 Glucose 289 H POC Capillary Glucose 290 H 265 H Calcium 7.7 L Magnesium 04/04/24 04/05/24 04/05/24 22:31 06:00 07:43 WBC 11.1 H RBC 4.96 Hgb 14.8 Hct 43.7 MCV 88.1 MCH 29.8 MCHC 33.9 RDW 12.8 Plt Count 281 MPV 9.2 Immature Gran % (Auto) 0.4 Neut % (Auto) 48.4 Lymph % (Auto) 43.8 [place] % (Auto) 5.9 Eos % (Auto) 1.0 Baso % (Auto) 0.5 Lymph # (Auto) 4.85 H [place] # (Auto) 0.7 H Eos # (Auto) 0.1 Baso # (Auto) 0.1 Abs Immat Gran (auto) 0.04 H Absolute Neuts (auto) 5.4 Absolute Nucleated RBC 0.000 Nucleated RBC % 0.0 Sodium 136 L Potassium 3.8 Chloride 104 Carbon Dioxide 30 Anion Gap 2 L BUN 13 Creatinine 0.90 Estim Creat Clear Calc 107 Estimated GFR > 60 Glucose 170 H POC Capillary Glucose 248 H 194 H Calcium 8.8 Magnesium 1.7 04/05/24 11:21 WBC RBC Hgb Hct MCV MCH MCHC RDW Plt Count MPV Immature Gran % (Auto) Neut % (Auto) Lymph % (Auto) [place] % (Auto) Eos % (Auto) Baso % (Auto) Lymph # (Auto) [place] # (Auto) Eos # (Auto) Baso # (Auto) Abs Immat Gran (auto) Absolute Neuts (auto) Absolute Nucleated RBC Nucleated RBC % Sodium Potassium Chloride Carbon Dioxide Anion Gap BUN Creatinine Estim Creat Clear Calc Estimated GFR Glucose POC Capillary Glucose 383 H Calcium Magnesium Quality VTE Prophylaxis VTE prophylaxis: pharmacologic ordered Hospitalist MIPS Advance Care Plan I have confirmed that the patient's Advanced Care Plan is present, code status is documented, or surrogate decision maker is listed in patient medical record.: Yes Medication Reconciliation I have utilized all available resources to obtain, update and review the patients current medications (includes all prescriptions, OTC, herbals, cannabis, and nutritional supplements).: Yes
[2024-04-05 16:29] LABS: Glucose Point of Care 149 mg/dl (65-105)
[2024-04-05] MEDS: IBUPROFEN IV 400 MG in SODIUM CHLORIDE 0.9% IV 100 ML 208 MG IVPB (17:30)
[2024-04-05] MEDS: CALCIUM CARBONATE (TUMS) 500 MG (200 MG ELEMENTAL) PO (19:52)
[2024-04-05 20:25] LABS: Glucose Point of Care 231 mg/dl (65-105)
[2024-04-05] MEDS: INSULIN GLARGINE (*BKC) 100 UNITS/ML 23 UNITS SUB-Q (21:13)
[2024-04-05] MEDS: MAG HYDROX/AL HYDROX/SIMETH 30 ML UDC PO (21:14)
[2024-04-06] MEDS: MORPHINE SULFATE (*CRX) 2 MG/ML INJ IV PUSH (00:38)
[2024-04-06] MEDS: ONDANSETRON INJ 4 MG/2 ML VIAL IV PUSH ×2 (00:42→08:45)
[2024-04-06 04:00] VITALS: BP 139/89; PULSE 64; RESP 18; TEMP 36.7; O2SAT 99
[2024-04-06 07:03] LABS: Basophils Absolute Auto 0.1 K/mm3 (0.0-0.1); Basophils Percent Auto 0.6 % (0.2-1.2); Eosinophils Absolute Auto 0.1 K/mm3 (0-0.3); Eosinophils Percent Auto 1.3 % (0-4.4); Hematocrit 42.8 % (42.0-52.0); Hemoglobin 14.6 g/dL (14.0-18.0); Immature Granulocyte Absolute 0.03 K/mm3 (0.00-0.031); Immature Granulocyte Percent A 0.4 % (0-0.5); Lymphocytes Absolute Auto 3.24 K/mm3 (0.9-3.2); Lymphocytes Percent Auto 38.2 % (18.3-44.2); Mean Corpuscular HGB Conc 34.1 g/dl (32-36); Mean Corpuscular Hemoglobin 29.6 pg (26-34); Mean Corpuscular Volume 86.8 fl (80-100); Mean Platelet Volume 9.6 fl (7.4-10.4); Monocytes Absolute Auto 0.5 K/mm3 (0.1-0.6); Monocytes Percent Auto 5.5 % (2.6-8.5); Neutrophils Absolute Auto 4.6 K/mm3 (1.3-6.7); Platelet Count Result 290 k/mm3 (150-375); Red Blood Count 4.93 M/mm3 (4.6-6.20); Red Cell Distribution Width 12.9 % (11.5-14.5); White Blood Count 8.5 K/mm3 (4.5-10.0)
[2024-04-06 07:17] LABS: Alanine Aminotransferase 33 U/L (6-50); Albumin Level 3.8 g/dL (3.5-5.1); Alkaline Phosphatase 59 U/L (38-126); Anion Gap 5 mmol/L (4-12); Aspartate Amino Transferase 23 U/L (17-59); Bilirubin,Total 0.6 mg/dL (0.2-1.3); Blood Urea Nitrogen 9 mg/dL (9-20); Calcium 8.6 mg/dL (8.4-10.2); Carbon Dioxide 26 mmol/L (22-30); Chloride 103 mmol/L (98-107); Estimated CRCL calculation 119 ml/min; Estimated Glomerular Filt Rate > 60; Glucose 165 mg/dL (65-110); Magnesium 1.9 mg/dL (1.6-2.3); Potassium 3.3 mmol/L (3.4-5.0); Sodium 134 mmol/L (137-145)
[2024-04-06 07:48] LABS: Glucose Point of Care 178 mg/dl (65-105)
[2024-04-06] MEDS: INSULIN ASPART (*BKC) 100 UNITS/ML 10 UNITS SUB-Q ×3 (08:44→16:59)
[2024-04-06] MEDS: ENOXAPARIN 40 MG/0.4 ML SYRINGE SUB-Q (08:48)
[2024-04-06] MEDS: lisinopriL 20 MG TABLET PO (08:49)
[2024-04-06] MEDS: MAG HYDROX/AL HYDROX/SIMETH 30 ML UDC PO ×2 (08:57→14:27)
[2024-04-06 10:40] VITALS: BMI 40.6
[2024-04-06 11:35] LABS: Glucose Point of Care 151 mg/dl (65-105)
[2024-04-06] MEDS: POTASSIUM CHLORIDE 20 MEQ ER TABLET 40 MEQ PO (11:56)
[2024-04-06 14:00] VITALS: BP 118/80; PULSE 67; RESP 16; TEMP 36.2; O2SAT 99
--- NOTE | 2024-04-06 14:30 | PM.IMPN ---
Progress Note: A&P Assessment and Plan (1) Type 2 diabetes mellitus with hyperglycemia: Code(s): E11.65 - Type 2 diabetes mellitus with hyperglycemia Status: Acute Assessment and Plan: - Blood glucose levels improving. - Monitor for now. - Continue to adjust insulin as needed. - Seen by simulation educator. (2) Dehydration: Code(s): E86.0 - Dehydration Status: Acute Assessment and Plan: - Likely related to above. - Cr wnl. - Tolerating meals well. - IVF discontinued. (3) Elevated blood pressure reading: Code(s): R03.0 - Elevated blood-pressure reading, without diagnosis of hypertension Status: Acute Assessment and Plan: - Started on Lisinopril. - BP levels improving. - Monitor and adjsut meds as needed. (4) Lesion of right lobe of liver: Code(s): K76.9 - Liver disease, unspecified Status: Acute Assessment and Plan: - MRI abdomen showing diffuse hepatic steatosis with hemangiomas. - No further w/u for now. (5) Morbid obesity: Code(s): E66.01 - Morbid (severe) obesity due to excess calories Status: Acute Assessment and Plan: - Encouraged with lifestyle modifications, including diet and exercise. Time Spent With Patient Time with patient: 15 - 25 minutes Subjective Date/time seen: 04/06/24 10:30 Patient states he still has epigastric pain with eating but it's getting better. States hasn't been eating much. Interval history: Patient calm on bedrest and looks to be in no acute distress. Review of Systems Review of Systems: 12 systems were reviewed and are negative except for as per HPI. All systems reviewed & are unremarkable except as noted in HPI and below Exam Narrative: General: Obese pt, calm and co-operative. HEENT: PERRL, EOMI. Sclera anicteric. Tacky mucous membranes. Neck: Supple. Respiratory: Lungs are clear to auscultation bilaterally. Cardiovascular: Regular rate and rhythm. Gastrointestinal: Abdomen soft, obese, and nondistended with +ve BS X4 quadrants. Skin: Warm and dry. Extremities: No cyanosis, clubbing, or edema. Radial and pedal pulses intact. Neurological: Alert. CN II-XII are grossly intact. Psychiatric: Appropriate mood and affect. Objective Data Vital Signs Vital Signs: Vital Signs - 24 hr 04/05/24 16:00 04/05/24 20:00 04/06/24 04:00 Temperature 98.5 F 97.7 F 98.0 F Pulse Rate 70 74 64 Respiratory Rate 14 20 18 Blood Pressure 123/78 140/105 H 139/89 Pulse Oximetry 98 100 99 Intake/Output Intake/Output: Intake & Output 04/03/24 04/04/24 04/05/24 04/06/24 23:59 23:59 23:59 23:59 Intake Total 3000 3421 100 Output Total 800 Balance 3000 2621 100 Meds/Results Medications: Active Medications Generic Name Dose Route Start Last Admin Trade Name Freq PRN Reason Stop Dose Admin Acetaminophen 650 mg 04/04/24 14:19 04/05/24 02:35 Acetaminophen 325 Mg Tablet PO 650 mg Q6H PRN Administration Mild Pain (1-3) or Fever Al Hydrox/Mg Hydrox/Simethicone 30 ml 04/05/24 10:01 04/06/24 14:27 Mag Hydrox/Al Hydrox/Simeth 30 Ml Udc PO 30 ml Q6H PRN Administration Indigestion Calcium Carbonate 200 mg 04/04/24 20:19 04/05/24 19:52 Calcium Carbonate (Tums) 500 Mg (200 Mg Elemental) PO 200 mg Q6H PRN Administration Indigestion Dextrose 12.5 gm 04/04/24 16:39 Dextrose 50% 25 Gm/50 Ml Syringe IV PUSH PRN PRN Hypoglycemia Protocol Enoxaparin Sodium 40 mg 04/05/24 11:30 04/06/24 08:48 Enoxaparin 40 Mg/0.4 Ml Syringe SUB-Q 40 mg DAILY VENTURA Administration Glucagon 1 mg 04/04/24 16:39 Glucagon For Inj 1 Mg Vial IM PRN PRN Hypoglycemia Protocol Glucose 15 gm 04/04/24 16:39 Glucose Oral Gel 15 Gm Of Glucse In 37.5 Gm Tube PO PRN PRN Hypoglycemia Protocol Ibuprofen 400 mg/ Sodium 104 mls @ 208 mls/hr 04/05/24 13:07 04/05/24 18:00 Chloride IVPB Infused Q6H PRN Infusion Pain Rated 4-6 Insulin Aspart 3 - 6 units 04/04/24 17:00 04/06/24 11:55 Insulin Aspart (*Bkc) 100 Units/Ml SUB-Q Not Given [facility] Protocol Insulin Aspart 1 - 3 units 04/04/24 21:00 04/05/24 21:13 Insulin Aspart (*Bkc) 100 Units/Ml SUB-Q 1 units [facility] Administration Protocol Insulin Aspart 10 units 04/05/24 17:00 04/06/24 11:57 Insulin Aspart (*Bkc) 100 Units/Ml SUB-Q 10 units TIDWM [facility] Administration Insulin Glargine 23 units 04/04/24 21:00 04/05/24 21:13 Insulin Glargine (*Bkc) 100 Units/Ml 0.2 units/kg (23 units) 23 units SUB-Q Administration [facility] Lisinopril 20 mg 04/05/24 16:00 04/06/24 08:49 Lisinopril 20 Mg Tablet PO 20 mg DAILY VENTURA Administration Ondansetron HCl 4 mg 04/04/24 14:19 04/06/24 08:45 Ondansetron Inj 4 Mg/2 Ml Vial IV PUSH 4 mg Q6H PRN Administration Nausea And Vomiting Radiology Results: ITS Impressions Abdomen/Pelvis CT 04/04/24 13:00 IMPRESSION: 1. No acute intra-abdominal/pelvic process. 2. Indeterminate 2.5 cm centrally enhancing lesion in the right hepatic lobe which could represent neoplasm either benign or less likely malignant. Recommend further evaluation with multiphase pre and postcontrast MRI. 3. Small bilateral fat-containing inguinal hernias. Abdomen MRI 04/06/24 09:06 IMPRESSION: 1. Large geographic region of diffuse hepatic steatosis in segments 5 and 8 the liver containing a couple hemangiomas with characteristic enhancement pattern. The larger hemangioma in segment 8 measures 1.7 x 1.1 cm which along with an associated peripheral rim of focal fatty sparing with transient hepatic intensity difference corresponds to the lesion of concern on prior CT. Labs Labs: Laboratory Results - last 24 hr 04/05/24 04/05/24 04/06/24 16:25 19:43 06:27 WBC 8.5 RBC 4.93 Hgb 14.6 Hct 42.8 MCV 86.8 MCH 29.6 MCHC 34.1 RDW 12.9 Plt Count 290 MPV 9.6 Immature Gran % (Auto) 0.4 Neut % (Auto) 54.0 Lymph % (Auto) 38.2 [place] % (Auto) 5.5 Eos % (Auto) 1.3 Baso % (Auto) 0.6 Lymph # (Auto) 3.24 H [place] # (Auto) 0.5 Eos # (Auto) 0.1 Baso # (Auto) 0.1 Abs Immat Gran (auto) 0.03 Absolute Neuts (auto) 4.6 Absolute Nucleated RBC 0.000 Nucleated RBC % 0.0 Sodium 134 L Potassium 3.3 L Chloride 103 Carbon Dioxide 26 Anion Gap 5 BUN 9 Creatinine 0.80 Estim Creat Clear Calc 119 Estimated GFR > 60 Glucose 165 H POC Capillary Glucose 149 H 231 H Calcium 8.6 Magnesium 1.9 Total Bilirubin 0.6 AST 23 ALT 33 Alkaline Phosphatase 59 Total Protein 7.0 Albumin 3.8 04/06/24 04/06/24 07:29 11:27 WBC RBC Hgb Hct MCV MCH MCHC RDW Plt Count MPV Immature Gran % (Auto) Neut % (Auto) Lymph % (Auto) [place] % (Auto) Eos % (Auto) Baso % (Auto) Lymph # (Auto) [place] # (Auto) Eos # (Auto) Baso # (Auto) Abs Immat Gran (auto) Absolute Neuts (auto) Absolute Nucleated RBC Nucleated RBC % Sodium Potassium Chloride Carbon Dioxide Anion Gap BUN Creatinine Estim Creat Clear Calc Estimated GFR Glucose POC Capillary Glucose 178 H 151 H Calcium Magnesium Total Bilirubin AST ALT Alkaline Phosphatase Total Protein Albumin Quality VTE Prophylaxis VTE prophylaxis: pharmacologic ordered Hospitalist MIPS Advance Care Plan I have confirmed that the patient's Advanced Care Plan is present, code status is documented, or surrogate decision maker is listed in patient medical record.: Yes Medication Reconciliation I have utilized all available resources to obtain, update and review the patients current medications (includes all prescriptions, OTC, herbals, cannabis, and nutritional supplements).: Yes
[2024-04-06 16:50] LABS: Glucose Point of Care 123 mg/dl (65-105)
[2024-04-06] MEDS: SIMETHICONE 125 MG CHEW TAB PO (16:58)
[2024-04-06] MEDS: INSULIN GLARGINE (*BKC) 100 UNITS/ML 23 UNITS SUB-Q (20:29)
[2024-04-06] MEDS: ACETAMINOPHEN 325 MG TABLET 650 MG PO (20:29)
[2024-04-06 20:30] LABS: Glucose Point of Care 119 mg/dl (65-105)
[2024-04-06 21:24] VITALS: BP 124/87; PULSE 70; RESP 20; TEMP 36.5; O2SAT 99
[2024-04-07 06:00] VITALS: BP 130/86; PULSE 66; RESP 20; TEMP 35.9; O2SAT 95
[2024-04-07 07:57] LABS: Glucose Point of Care 152 mg/dl (65-105)
[2024-04-07] MEDS: ONDANSETRON INJ 4 MG/2 ML VIAL IV PUSH (08:37)
[2024-04-07] MEDS: ENOXAPARIN 40 MG/0.4 ML SYRINGE SUB-Q (08:39)
[2024-04-07] MEDS: lisinopriL 20 MG TABLET PO (08:39)
[2024-04-07] MEDS: INSULIN ASPART (*BKC) 100 UNITS/ML 10 UNITS SUB-Q ×3 (08:39→17:04)
[2024-04-07] MEDS: MAG HYDROX/AL HYDROX/SIMETH 30 ML UDC PO (09:08)
[2024-04-07 11:29] VITALS: BMI 40.4
[2024-04-07 11:29] LABS: Glucose Point of Care 192 mg/dl (65-105)
[2024-04-07] MEDS: ACETAMINOPHEN 325 MG TABLET 650 MG PO (12:07)
[2024-04-07] MEDS: LOPERAMIDE HCL 2 MG CAPSULE PO (12:32)
[2024-04-07 14:30] VITALS: BP 115/79; PULSE 73; RESP 16; TEMP 36.1; O2SAT 97
--- NOTE | 2024-04-07 16:25 | PM.DS ---
DS: Admitting Diagnosis Discharge Date 04/07/2024 Admitting Diagnosis DM 2 with Hyperglycemia ( New Diagnosis) DS: Discharge Diagnosis Discharge Diagnosis (1) Type 2 diabetes mellitus with hyperglycemia: Code(s): E11.65 - Type 2 diabetes mellitus with hyperglycemia Status: Acute Assessment and Plan: - Blood glucose levels currently controlled. - Monitor blood-glucose levels closely. - Encouraged with insulin use at home. - Seen by special education paraeducator. (2) Dehydration: Code(s): E86.0 - Dehydration Status: Acute Assessment and Plan: - Likely related to above. - Resolved. (3) Elevated blood pressure reading: Code(s): R03.0 - Elevated blood-pressure reading, without diagnosis of hypertension Status: Acute Assessment and Plan: - Started on Lisinopril. - BP currently well controlled. (4) Lesion of right lobe of liver: Code(s): K76.9 - Liver disease, unspecified Status: Acute Assessment and Plan: - MRI abdomen showing diffuse hepatic steatosis with hemangiomas. - No further w/u needed for now. (5) Morbid obesity: Code(s): E66.01 - Morbid (severe) obesity due to excess calories Status: Acute Assessment and Plan: - Encouraged with lifestyle modifications, including diet and exercise. Plan Discharge Home. DS: Summary Hospital Course Reason for hospitalization: DM 2 with Hyperglycemia, New Onset. Hospital Course: Patient presented to the ER with reports of nausea and vomiting within the last 3 days prior to his arrival. Patient also reported polyuria and polydipsia. Initial work-up labs in the ER showed a blood-glucose level or 437, with the patient denying any previous history of diabetes. He was also noted to be hypertensive with systolic BP > 160 and DBP>110. Patient's symptoms were suspected to be likely from hyperglycemia and he was started on insulin therapy, long-acting, prandial and sliding scale. Pt's blood-glucose levels are currently better controlled, trending 150's-190's. He was started on Lisinopril and his BP is now better controlled. Patient was seen by senior health educator and educated on diabetes and its restrictions. Pt also had a CT abd/pelvis done that was negative except for an indeterminate 2.5 cm right hepatic lobe lesion was seen. MRI abdomen was recommended for further evaluation and it was done, showing diffuse hepatic steatosis with hemangiomas. No further work-up was recommend. Patient has been encouraged with diet and exercise in order to lose weight. His GI symptoms resolved and he's been tolerating diet well. Patient is currently stable for discharge with no acute distress noted or reported prior to discharge. Status at Discharge Functional status at discharge: independent ambulation Overall status at discharge: patient is back to baseline Time Spent with Patient Time attestation: Total time spent providing and/or coordinating discharge services: Time spent: Greater than 30 minutes Exam Narrative: General: Obese pt, calm and co-operative. HEENT: PERRL, EOMI, Sclera anicteric, moist mucosa. Neck: Supple. Respiratory: Lungs are clear to auscultation bilaterally. Cardiovascular: Regular rate and rhythm. Gastrointestinal: Abdomen soft, obese, and nondistended with +ve BS X4 quadrants. Skin: Warm and dry. Extremities: No cyanosis, clubbing, or edema. Radial and pedal pulses intact. Neurological: Alert. CN II-XII are grossly intact. Psychiatric: Appropriate mood and affect. DS: Data Data Completed and Pending Labs on day of discharge: Labs from last 24 hours 04/07/24 04/07/24 04/06/24 11:25 07:34 20:17 POC Capillary Glucose 192 H 152 H 119 H 04/06/24 16:41 POC Capillary Glucose 123 H Discharge Plan Discharge Attending physician on discharge: Arturo Canela Discharging Clinician: Maya Bowles Anticipated Discharge Date/Time: 04/07/24 16:31 Patient Disposition: Home, Self-Care Activity: as tolerated Diet: heart healthy and diabetic Patient Instructions: Antibiotic Form Patient Language: Yakut Stand Alone Forms: General Discharge Information Follow-up/Referrals: PHYSICIAN,MEDICAL RECORDS ANALYST [Primary Care Provider] - 1 Week Discharge Medications: New insulin aspart U-100 [Novolog U-100 Insulin aspart] 100 unit/mL Solution 3 - 6 unit subcut TIDWM Qty: 1 0RF Protocol: Insulin Corrective Moderate-Dose Condition: glucose < 70 mg/dl Dose/Route: Follow hypoglycemia orders Condition: glucose 70-200 mg/dl Dose/Route: No additional insulin Condition: glucose 201-250 mg/dl Dose/Route: 3 units sub-Q Condition: glucose 251-300 mg/dl Dose/Route: 4 units sub-Q Condition: glucose 301-350 mg/dl Dose/Route: 5 units sub-Q Condition: glucose 351-400 mg/dl Dose/Route: 6 units sub-Q Condition: glucose > 400 mg/dl Dose/Route: Call MD Protocol Text: *No Correction Dose at Bedtime* insulin glargine [Lantus U-100 Insulin] 100 unit/mL Solution 23 unit subcut HS Qty: 1 4RF insulin aspart U-100 [Novolog U-100 Insulin aspart] 100 unit/mL Solution 10 unit subcut TIDWM Qty: 1 4RF lisinopril 20 mg Tablet 20 mg PO DAILY Qty: 30 1RF No Action No Home Medications Date of admission: 04/04/24 14:50 Primary Care Provider: PHYSICIAN,MEDICAL RECORDS ANALYST Admitting Provider: Marga Muir Attending physician on admission: Marga Muir Condition: Stable Quality VTE Prophylaxis VTE prophylaxis: pharmacologic ordered If No VTE Prophylaxis Answer both mechanical and pharmacologic: Reason no mechanical VTE proph: low risk/not indicated Reason no pharmacologic proph: low risk/not indicated Hospitalist MIPS Heart Failure (Exclusion) Patient has history of Heart Transplant or Left Ventricular Assistive Device?: No IF YES, STOP HERE Heart Failure (Qualifier) Patient has current or prior documentation of LVEF less than or equal to 40%, or mod/servere depressed LVSF?: No IF NO, STOP HERE
[2024-04-07 16:57] LABS: Glucose Point of Care 161 mg/dl (65-105)
--- OUTSIDE RECORDS SUMMARY | 2024-04-08 10:30 | XMS_ITS | Clinical Summary ---
Author Organization [facility] al Address [address] [place] [address] Care Team Providers Care Skiver Counter Name Role Phone Unknown, Notinfile Primary Care Provider Unavail able Allergies No known active allergies Medications ondansetron ODT (ZOFRAN-ODT) 4 mg disintegrating tablet Dissolve 1 tablet oral every 4 hours as needed for nausea or vomiting. 15 tablet Active Active Problems No known active problems Immunizations Name Administration Dates Next Due Influenza, Quadrivalent, Spl it, Preservative Free, Intramuscular 03/07/2023 Social History Tobacco Use Types Packs/Day Years Used Date Smoking Tobacco: Former Cigarettes Tobacco Cessation:Counseling Given: Not Answered Alcohol Use Standard Drinks/Week Comments Not Currently 0 (1 standard drink = 0.6 oz pur e alcohol) Personal Safety Answer Date Recorded Have you ever been in or are you currently in a harmful physical or emotional relationship or is someone making you feel afraid or unsafe? 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 Gender Identity Not on file Sexual Orientation Not on file Obstetrics History Last Filed Vital Signs Vital Sign Reading Time Taken Comments Blood Pressure 127/98 09/01/2023 11:30 PM CDT Pulse 78 09/01/2023 11:31 PM CDT Temperature 36.6 ??C (97.8 ??F) 09/01/2023 3:23 PM CD T Respiratory Rate 16 09/01/2023 11:31 PM CDT Oxygen Saturation 95% 09/01/2023 11:31 PM CDT Inhaled Oxygen Concentration - - Weight 113.4 kg (250 lb) 09/01/2023 3:23 PM CDT Height 167.6 cm (5' 6 ) 09/01/2023 3:23 PM CDT Body Mass Index 40.35 09/01/2023 3:23 PM CDT Plan of Treatment Health Maintenance Due Date Last Done Comments Colon Cancer Screening-Colonoscopy 1977 Depression Screening 1977 Hepatitis C Screening 1977 DTaP/Tdap/Td Vaccine (1 - Tdap) 1988 Hepatitis B Screening 07/18/1995 Regular Well Visit/Exam 18-64 07/18/1995 Covid-19 Vaccine (3 - 2023-2 5 season) 2023 07/13/2020, 06/21/2020 Influenza Vaccine (#1) 2023 03/07/2023 HPV Vaccines Aged Out No longer eligi ble based on patient's age to complete this topic Pneumococcal vaccine <65 Aged Out No longer eligible based on patient's age to complete this topic Care Teams Skiver Counter Relationship Specialty Start Date End Date Unknown, Notinfile PCP - General 09/01/23
--- OUTSIDE RECORDS SUMMARY | 2024-04-08 10:30 | XMS_ITS | Encounter Summary ---
Author Organization [facility] Care Team Providers Care Orchard Hand Name Role Phone Unavailable Primary Care Provider Unavailabl e Encounter Details Date Type Department Care Team (Latest Contact Info) Description 01/18/2015 10:51 PM CDT - 01/19/2015 3:31 AM CDT Hospital Encounter [facility] Kane Mukherjee MD [address] [place] [address] Acute bronchitis; Viral infection in conditions classified elsewhere and of unspecified site; Asthma Social History Tobacco Use Types Packs/Day Years Used Date Smoking Tobacco: Never Assessed Sex and Gender Information Value Date Recorded Sex Assigned at Not on file 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 TEOFILO UREÑA M.D. FINAL REPORT The radiology attending physician has personally reviewed this study, and has reviewed and/or edited this written report and agrees with it. ACC# ??Date Time ??Exam [id number] Jan 19, 2015 00:25:00 [id number] Chest 2 views Frontl & Lat EXAMINATION: ?? Chest, 2 views HISTORY: Cough IMPRESSION: ?? There are no comparisons available. There is mild bibasilar atelectasis. No pneumothorax or pleural effusion. Heart size and mediastinal contours are normal. Requested By: Dictated By: ?? TEOFILO UREÑA M.D. ??on Jan 19 2015 ??8:54A This document has been electronically signed by: SOPHY BURGESS M.D. on Jan 19 2015 ??9:51A [id number] Procedure Note Provider, Hanna, - 09/28/2016 SOPHY BURGESS M.D. TEOFILO UREÑA M.D. FINAL REPORT The radiology attending physician has personally reviewed this study, and has reviewed and/or edited this written report and agrees with it. ACC# Date Time Exam [id number] Jan 19, 2015 00:25:00 [id number] Chest 2 views Frontl & Lat EXAMINATION: Chest, 2 views HISTORY: Cough IMPRESSION: There are no comparisons available. There is mild bibasilar atelectasis. No pneumothorax or pleural effusion. Heart size and mediastinal contours are normal. Requested By: Dictated By: TEOFILO UREÑA M.D. on Jan 19 2015 8:54A This document has been electronically signed by: SOPHY BURGESS M.D. on Jan 19 2015 9:51A [id number] us Historical Provider MD AUGUSTIN XR PROCEDURES Final R esult documented in this encounter Visit Diagnoses Diagnosis Acute bronchitis Viral infection in conditions classified elsewhere and of unspecified site Asthma Unspecified asthma documented in this encounter
--- OUTSIDE RECORDS SUMMARY | 2024-04-08 10:30 | XMS_ITS | Referral Summary ---
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
--- OUTSIDE RECORDS SUMMARY | 2024-04-08 10:30 | XMS_ITS | Encounter Summary ---
Author Organization [facility] Healthcare Address [address] [place] [address] Care Team Providers Care Juvenile Counselor Name Role Phone Unknown, Notinfile Primary Care Provider Unavail able Reason for Referral * Consultation (Routine) - Closed Specialty Diagnoses / Procedures Referred By Polo dias Referred To Contact Internal Medicine Diagnoses Elevated glucose Grace Buchanan MD [address] [place] [address] Phone: tel: fax: [facility] [address] [facility] 12th [place] [address] [place] [address] Phone: tel: fax: Referral ID Status Reason Start Date Expiration Date V isits Requested Visits Authorized [id number] Closed Specialty Services Required 09/01/2023 09/30/2024 1 1 Question Answer Please select the performing region: [facility] (All Locations) [[id number]] Please select the performing department: [facility] ED CAM 12B [[id number]] # of visits: 1 Reason for Visit * Reason Comments Food Bolus Encounter Details Date Type Department Care Team (Late st Contact Info) Description 09/01/2023 3:32 PM CDT - 09/02/2023 12:17 AM CDT Emergency [facility] Emergency Department [address] [place] [address] Rosy Krishnamurthy MD [address] [place] [address] Phill Cancino MD [address] [place] [address] Pill esophagitis (Primary Dx); Cannabinoid hyperemesis syndrome; Elevated glucose Discharge Disposition: Discharge to home or self care Social History Tobacco Use Types Packs/Day Years [...] on file 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 Your lab workup was concerning for high blood sugar level. We strongly recommend that you follow up with a primary care provider for prediabetes/possible diabetes. We have referred you to primary care here, but if you prefer, you can establish care at any of the clinics listed below: [facility] (3) [facility]- [address] [phone] (M, , Th, F 8-5; W 8-8) [facility]- [address] [facility] [phone] (M-W, F 8-5; Th 8-8) [facility]- [address] [phone] (, , F 8-5; W 8-8) Min $20/visit w/o insurance [facility] (4) Main Number [phone] [facility]- [address] [facility]- [address] [facility]- [address] [facility]- [address] [facility] (M, , , F 830-530; W 830-7) (Sa 9-1 @ [facility]) Min $20/visit w/o insurance [facility]ro[facility] (4) [facility]- [address] [phone] (M-Sa) [facility]- [address] [facility] [phone] (M-Sa) [facility]- [address] [facility] [phone] (M 9-2;Tu 10-6; W 9-3;Th 10-4; Sa 8-12) [facility]- [address]; *Ages 13-24* [phone] (M-F 1p-5p) [place] [facility] (Irish-speaking) [address] (M-F 9-5, Sa 9-2, [place] 1p-5p) $25/visit w/o insurance [facility] (3) [facility]- [address] [phone] (M, W-F 8-530; 8-830) [facility]- [address] [phone] (M, , Th, F 8-530; W 8-830) [facility]- [address] [phone] (M-W, F 8-530; 11-8) Min $25/visit w/o insurance [facility] (2) [place]- [address] [phone] (M, W, F 8-5; , 8-8; Sa 8-1) [facility]- [address] [phone] (M, W-F 830-5; 830-7; Sa 9-1) Min $20/visit w/o insurance [facility] (3) [facility]- [address] [phone] (M-W, F 8-5; 8-6) [facility]- [address] [phone] (M, , , F 8-5; W 8-6) [facility]- [address] [facility] [phone] (M, W-F 8-5; 8-6) [facility] ([email or web address]) (~40 centers) [address] [place] [address] [place], [place] [phone] (M-F830-5; Quick Care M-F 5p-830p, Sa 9-1230) [facility]- [address] [phone] (M-F 830-5;Late Hours M,W,F 6p-10p) [facility]- [address] [place], [place] [phone] (M-F 830-5) A cardiac rule out was performed to make sure that you are not having a serious heart issue such asa heart attack. It is likely that your throat pain, nausea, and vomiting due to a combination of pill esophagitis and cannabis hyperemesis. We performed a trial of a GI cocktail (e.g. Maalox) to see if this relieves your throat pain. At this time is appropriate for you to be discharged home and ther e is no emergent need to be to the hospital. You should return to the emergency department we started experiencing the following symptoms: Crushing substernal chest pain, difficulty breathing, return of intractable nausea vomiting, severe headache, vision changes, inappropriate inability to stay awake, fainting spell, new onset weakness or numbness in her extremity, or any other distressing symptoms. Please refrain from marijuana, as this is directly contributing to your nausea and vomiting. documented in this encounter Medications at Time of Discharge ondansetron ODT (ZOFRAN-ODT) 4 mg disintegrating tablet Dissolve 1 tablet oral every 4 hours as needed for nausea or vomiting. 15 tablet 09/01/2023 documented as of this encounter Ordered Prescriptions Prescription Sig Dispense Quantity Refills Last Filled Start Date End Date ondansetron ODT (ZOFRAN-ODT) 4 mg disintegrating tablet Dissolve 1 tablet oral every 4 hours as needed for nausea or vomiting. 15 tablet 09/01/2023 documented in this encounter Discharge Disposition Disposition Code Departure Means Destination Comment s Discharge to home or self care documented in this encounter ED Notes * Yoon Srinivasan RN - 09/01/2023 5:28 PM CDT Bed: ED1-03 Expected date: Expected time: Means of arrival: Comments: 1R Yoon Srinivasan RN 09/01/23 1728 * Rosy Krishnamurthy MD - 09/01/2023 3:43 PM CDT HPI Chief Complaint Patient presents with ??? Food Bolus This is a 48-year-old male prior medical history of anxiety and borderline diabetes profuse vomiting and difficulty breathing and chest/throat pain. He tried to swallow a energy pill (many thin whichcontains caffeine and ephedrine) 2 nights ago in the evening he felt a pill got stuck in his throatthe next morning upon waking he felt that dislodged and then began to experience significant burning pain in his throat. His pain waxes and wanes with a baseline 4/10 intensity which peaked 8/10. Pain does not radiate and is described as burning. Patient denies any blood in his vomit however he decided to self administer charcoal thus his vomit was black got positively rule out coffee- ground emesis. No phill blood in vomitus. Patient History: There are no problems to display for this patient. History reviewed. No pertinent past medical history. History reviewed. No pertinent surgical history. History reviewed. No pertinent family history. Social History Tobacco Use ??? Smoking status: Former Types: Cigarettes ??? Smokeless tobacco: None Substance and Sexual Activity ??? Alcohol use: Not Currently ??? Drug use: Yes Types: Marijuana ??? Sexual activity: None Social History Social History Narrative ??? Not on file Review of Systems Review of Systems Physical Exam ED Triage Vitals [09/01/23 1523] Temp Pulse Resp BP SpO2 36.6 ??C (97.8 ??F) 75 18 (!) 188/72 94 % Temp src Heart Rate Source Patient Position BP Location FiO2 (%) Oral -- -- -- -- Height Height Method Weight Weight Method 1.676 m (5' 6 ) Stated 113.4 kg (250 lb) Stated Physical Exam HENT: Head: Normocephalic and atraumatic. Cardiovascular: Rate and Rhythm: Normal rate and regular rhythm. Heart sounds: Normal heart sounds. Neurological: Mental Status: He is alert. Psychiatric: Attention and Perception: Attention normal. Mood and Affect: Mood is anxious. Affect is tearful. Behavior: Behavior is cooperative. Thought Content: Thought content normal. Cognition and Memory: Cognition normal. Comments: Speech is rapid but not pressured MDM Medical Decision Making Differential diagnosis: Highest likelihood pill esophagitis. Lower likelihood but must rule out ACS,. Also on the differential MSK chest pain, other etiologies of esophagitis (e.g. Eosinophilic), GERD, Boerhaave's syndrome, DKA. Cannabis hyperemesis Plan: ACS rule out with EKG & troponin. Chest x-ray. We will trial GI cocktail. If symptoms do not resolve with GI cocktail continue further work up. Dispo: Likely discharge Amount and/or Complexity of Data Reviewed Labs: ordered. Radiology: ordered. ECG/medicine tests: ordered and independent interpretation performed. Risk OTC drugs. Prescription drug management. Attending Summary of Care I have seen and examined the patient on 09/01/2023. I agree with the findings and plan of care as documented in the resident's note. ED Course as of 09/01/233 Time: 08/31 1614 Comment: 48yoM p/w chest pain and burning which began about 3 days after taking an ephedra pill. Pthas vomited numerous times in the past few days. Notes his vomit is black but has also been taking activated charcoal. Very uncomfortable appearing, htn, rrr, lungs ctab, abd obese but soft, nontender. Nl oropharynx. Ddx high likelihood pill esophagitis, esophagitis, gastritis, PUD, lower likelihood pancreatitis, gallstone. Labs pending. Had some improvement w/ GI cocktail, will redose and trial pepcid, fluids, po w/ water. By: Rosy Krishnamurthy MD Time: 08/31 1726 Comment: 48 yo M with chest pain and burning of 3 days duration after taking an ephedra pill. Vomited numerous times in the past days after trying to take powdered charcoal. Appears uncomfortable andin pain but no airway compromise, or stridor, or drooling, tolerating secretions well. Concern for esophagitis likely pill, gastritis, less likely ACS, perforated ulcer. Will plan for CBC, CMP, troponin, XR chest, GI cocktail, fluids, and likely discharge when symptomatically improved. By: Trenton Thomson MD Time: 09/01 1839 Comment: Teach note: 48M here with CP with midsternal burning x3d after taking a pill. Feels food bolus, has been taken charcoal powder to move it. Has had GI cocktail x2, pepcid, fluids. Now with fluid and N/V for suspected cannabis hyperemesis. Pending: reassessment Dispo: DC By: Grace Buchanan MD Time: 08/31 1845 Comment: Patient reporting significant improvement in symptoms on droperidol. Recommend to observe for recurrence. By: Kip Bishop MD Time: 08/31 1905 Comment: 48yo M w/ c/f pill esophagitis p/w blood streaked emesis. S/p GI cocktail Was given dropiradol for cannabnoid hyperemesis with improvement Pending: Reassess patient, plan for dispo home. By: Ligia Allison MD Time: 08/31 1910 Comment: Pt appears comfortable with VSS. By: Grace Buchanan MD Time: 08/31 2128 Comment: Pt tolerating PO, will be discharged with referral to internal medicine as well as a list of local clinics to receive care. He has been counseled to stop marijuana use for presumed cannabinoid hyperemesis syndrome. By: Grace Buchanan MD Time: 09/01 2143 Comment: Patient was noted to have a heart rate in 114. I went to go re-evaluate the patient he wasresting comfortably in bed, his heart rate was in the 120. I believe the tachycardia is secondary to dehydration. I did provide patient with oral p.o. and will write a normal saline bolus. We will re-evaluate if his heart rate is improved plan for discharge home. Patient is in agreement with this. By: Ligia Allison MD Time: 08/31 2202 Comment: Pending reassessment after fluids. DC paperwork prepared By: Grace Buchanan MD No diagnosis found. Rosy Krishnamurthy MD 09/02/23 1328 * Yadira Barr RN - 09/01/2023 3:32 PM CDT Bed: [facility] Expected date: Expected time: Means of arrival: Comments: triage Yadira Barr RN 09/01/23 1532 * Dania Mosley RN - 09/01/2023 3:24 PM CDT Pt states he took a pill 2 days ago ephedra and states it got stuck hasn't been able to eat or drink since pt vomiting in triage documented in this encounter Miscellaneous Notes * ED Procedure Note - Regino Kirkland MD - 09/01/2023 3:49 PM CDTAssociated Order(s): ECG 12 lead Procedure ECG 12 lead Date/Time: 09/01/2023 3:49 PM Performed by: Regino Kirkland MD Authorized by: Kip Bishop MD Rate: ECG rate: 73 ECG rate assessment: normal Rhythm: Rhythm: sinus arrhythmia Ectopy: Ectopy: none T waves: T waves: flattening Flattening: III Previous ECG: Previous ECG: Unavailable Interpretation: Interpretation: abnormal Recommended Follow-up: Recommended follow up: cardiac workup Regino Kirkland MD 09/01/23 1550 documented in this encounter Plan of Treatment Pending Results Name Type Priority Associated Diagnoses Date /Time Lipase Lab STAT 09/01/2023 3:4 5 PM CDT Scheduled Orders Name Type Priority Associated Diagnoses Orde r Schedule Lipase Lab STAT Once for 1 Occ urrences starting 09/01/2023 until 09/01/2023 Scheduled Referrals Name Type Priority Associated Diagnoses Order Schedule Ambulatory referral to Internal Medicine Outpatient Referral Routine Elevated glucose Expected: 09/15/2023 (Approximate), Expires: 08/31/2024 documented as of this encounter Procedures Procedure Name Priority Date/Time Associated Diagnosis Comments POCT GLUCOSE DEVICE Routine 09/01/2023 1 1:03 PM CDT POCT GLUCOSE DEVICE Routine 09/01/2023 7 :58 PM CDT POCT KETONE, BLOOD Routine 09/01/2023 7: 33 PM CDT BETA-HYDROXYBUTYRATE STAT 09/01/2023 7:25 PM CDT XR CHEST 1 VIEW ED Urgent/IP Urgent 09/01/2023 4:14 PM CDT ECG 12-LEAD Routine 09/01/2023 3:49 PM CDT TROPONIN I HIGH-SENSITIVITY SERIES (BASELINE, 2HR, 4HR, 6HR) STAT 09/01/2023 3:45 PM CDT EGFR STAT 09/01/2023 3:45 PM CDT DIFFERENTIAL AUTO STAT 09/01/2023 3:4 5 PM CDT CBC WITH AUTO DIFFERENTIAL STAT 09/01/2023 3:45 PM CDT LIPASE STAT 09/01/2023 3:45 PM CDT COMPREHENSIVE METABOLIC PANEL STAT 09/01/2023 3:45 PM CDT documented in this encounter Results * (ABNORMAL) POCT glucose (09/01/2023 11:03 PM CDT) Glucose, POC 284(H) 70 - 199 mg/dL Blood 09/01/2023 11:0 3 PM CDT 09/01/2023 11:03 PM CDT us Rosy Krishnamurthy MD LAB POCT ORDERABLES - DEVIC E Final Result [facility] One [facility] Department [place] [address] * (ABNORMAL) POCT glucose (09/01/2023 7:58 PM CDT) Glucose, POC 279(H) 70 - 199 mg/dL Blood 09/01/2023 7:58 PM CDT 09/01/2023 7:58 PM CDT us Rosy Krishnamurthy MD LAB POCT ORDERABLES - DEVIC E Final Result Performing Organization Address [facility] Phone Number [facility] [place] [address] * (ABNORMAL) POCT ketone, blood (09/01/2023 7:33 PM CDT) Ketones, Blood, POC 1.7(H) 0.0 - 0.5 mmol/L Blood 09/01/2023 7:33 PM CDT 09/01/2023 7:33 PM CDT us Rosy Krishnamurthy MD LAB POCT ORDERABLES - DEVIC E Final Result Performing Organization Address [facility] Phone Number [facility] [place] [address] * (ABNORMAL) Beta-hydroxybutyrate (09/01/2023 7:25 PM CDT) Beta-Hydroxybut yrate 1.4(H) 0.0 - 0.5 mmol/L Blood 09/01/2023 7:25 PM CDT 09/01/2023 7:29 PM CDT Kip Bishop MD LAB BLOOD ORDERABLES Fi nal Result Performing Organization Address [facility] de Phone Number [facility] [place] [address] * XR Chest 1 View (09/01/2023 4:14 PM CDT) Anatomical Region Laterality Modality Body, Chest N/A Computed Radiogr aphy 09/01/2023 4:17 PM CDT Impressions 09/01/2023 4:25 PM CDT Mild linear opacities in the left lung base likely represent scarring. No pneumonic consolidation or pulmonary edema. No pleural effusion or pneumothorax. Cardiomediastinal silhouette is unchanged. Dictated by: Renetta Chinchilla M.D. The radiology attending physician has personally reviewed this study, and had reviewed and/or edited this written report and agrees with it. Electronically signed by: Lisa Hou M.D. Narrative 09/01/2023 4:25 PM CDT EXAMINATION: XR CHEST 1 VIEW HISTORY: Chest pain COMPARISON: 01/19/2015 Procedure Note Lisa Layton MD - 09/01/2023 EXAMINATION: XR CHEST 1 VIEW HISTORY: Chest pain COMPARISON: 01/19/2015 IMPRESSION: Mild linear opacities in the left lung base likely represent scarring. No pneumonic consolidation or pulmonary edema. No pleural effusion or pneumothorax. Cardiomediastinal silhouette is unchanged. Dictated by: Renetta Chinchilla M.D. The radiology attending physician has personally reviewed this study, and had reviewed and/or edited this written report and agrees with it. Electronically signed by: Lisa Hou M.D. Kip Bishop MD IMG XR PROCEDURES Final Result * (ABNORMAL) ECG 12-LEAD (09/01/2023 3:49 PM CDT) Narrative [facility] - 09/01/2023 3:49 PM CDT Regino Kirkland MD ? 09/01/2023 ??3:50 PM ECG 12 lead Date/Time: 09/01/2023 3:49 PM Performed by: Regino Kirkland MD Authorized by: Kip Bishop MD ?? Rate: ??ECG rate: ??73 ??ECG rate assessment: normal ?? Rhythm: ??Rhythm: sinus arrhythmia ?? Ectopy: ??Ectopy: none ?? T waves: ??T waves: flattening ?Flattening: ??III Previous ECG: ??Previous ECG: ??Unavailable Interpretation: ??Interpretation: abnormal ?? Recommended Follow-up: ??Recommended follow up: cardiac workup ?? Procedure Note Regino Kirkland MD - 09/01/2023 3:49 PM CDT Procedure ECG 12 lead Date/Time: 09/01/2023 3:49 PM Performed by: Regino Kirkland MD Authorized by: Kip Bishop MD Rate: ECG rate: 73 ECG rate assessment: normal Rhythm: Rhythm: sinus arrhythmia Ectopy: Ectopy: none T waves: T waves: flattening Flattening: III Previous ECG: Previous ECG: Unavailable Interpretation: Interpretation: abnormal Recommended Follow-up: Recommended follow up: cardiac workup Regino Kirkland MD 09/01/23 1550 us Kip Bishop MD ECG ORDERABLES Final R esult Performing Organization Address [facility] de Phone Number [facility] * Lipase (09/01/2023 3:45 PM CDT) Lipase 32 10 - 99 Units/L Blood 09/01/2023 3:45 PM CDT 09/01/2023 3:58 PM CDT us Rosy Krishnamurthy MD LAB BLOOD ORDERABLES Final Result Performing Organization Address [facility] de Phone Number [facility] One [facility] [place] [address] * eGFR (09/01/2023 3:45 PM CDT) eGFR >90 >=60 mL/min/1. 73 m2 Comment: Interpretive Data Reference Interval Normal ?>/= 90 mL/min/1.73m2 Mildly decreased* ? 60 - 89 mL/min/1.73m2 Mildly to moderately decreased ?45 - 59 mL/min/1.73m2 Moderately to severely decreased ??30 - 44 mL/min/1.73m2 Severely decreased ?15 - 29 mL/min/1.73m2 Kidney Failure ?< 15 ??mL/min/1.73m2 *Relative to young adult level Estimated glomerular filtration rate is determined by the 2020 CKD-EPI equation recommended by the National Kidney Foundation (A Unifying Approach to GFR Estimation: Recommendations of the NKF-ASK Task Force on Reassessing the Inclusion of Race in Diagnosing Kidney Disease, JASN 2020). The CKD-EPI equation should not be used for patients with unstable renal function and has not been validated in children and those over 70. Current interpretive data was last reviewed 2021. Blood 09/01/2023 3:45 PM CDT 09/01/2023 3:58 PM CDT Kip Bishop MD LAB BLOOD ORDERABLES nal Result [facility] One [facility] [place] [address] * (ABNORMAL) Differential, auto (09/01/2023 3:45 PM CDT) Neutrophil abs 8.8(H) 1.5 - 6.5 K/cumm Imm gran abs 0.1 0.0 - 0.1 K/cumm [facility] Lymphocyte abs 1.5 0.8 - 3.3 K/cumm [facility] Monocyte abs 0.4 0.2 - 0.8 K/cumm [facility] Eosinophil abs 0.1 0.0 - 0.5 K/cumm [facility] Basophil abs 0.0 0.0 - 0.1 K/cumm [facility] Neutrophil pct 81.1 % [facility] Comment: Interpretive Data Percent cell count reference ranges are not reported, since discordance with absolute values may lead to misinterpretation of CBC data. Current Interpretive Data was last revised on 2017. Imm gran pct 0.6 % [facility] Comment: Interpretive Data Percent cell count reference ranges are not reported, since discordance with absolute values may lead to misinterpretation of CBC data. Current Interpretive Data was last revised on 2017. Lymphocyte pct 13.8 % [facility] Comment: Interpretive Data Percent cell count reference ranges are not reported, since discordance with absolute values may lead to misinterpretation of CBC data. Current Interpretive Data was last revised on 2017. Monocyte pct 3.5 % [facility] Comment: Interpretive Data Percent cell count reference ranges are not reported, since discordance with absolute values may lead to misinterpretation of CBC data. Current Interpretive Data was last revised on 2017. Eosinophil pct 0.6 % [facility] Comment: Interpretive Data Percent cell count reference ranges are not reported, since discordance with absolute values may lead to misinterpretation of CBC data. Current Interpretive Data was last revised on 2017. Basophil pct 0.4 % [facility] Comment: Interpretive Data Percent cell count reference ranges are not reported, since discordance with absolute values may lead to misinterpretation of CBC data. Current Interpretive Data was last revised on 2017. Blood 09/01/2023 3:45 PM CDT 09/01/2023 3:57 PM CDT us Kip Bishop MD LAB BLOOD ORDERABLES Fi nal Result [facility] One [facility] [place] [address] * Troponin I high-sensitivity series (baseline, 2hr, 4hr, 6hr) (09/01/2023 3:45 PM CDT) Trop I hs <4 <=35 ng/L Comment: Interpretive Data For further hscTnI resources including the diagnostic algorithm and an aid in interpretation, copy and paste this link: [email or web address]/[email or web address] Current Interpretive Data last revised 2019. Blood 09/01/2023 3:45 PM CDT 09/01/2023 3:57 PM CDT us Kip Bishop MD LAB BLOOD ORDERABLES Fi nal Result [facility] One [facility] [place] [address] * (ABNORMAL) Comprehensive metabolic panel (09/01/2023 3:45 PM CDT) Sodium 135 135 - 145 mmol/L Potassium, pl 4.0 3.3 - 4.9 mmol/L [facility] Chloride 97 97 - 110 mmol/L [facility] CO2 22 22 - 32 mmol/L [facility] Anion gap 16(H) 2 - 15 mmol/L [facility] BUN 14 6 - 25 mg/dL [facility] Creatinine 0.81 0.80 - 1.30 mg/dL [facility] Glucose 328(H) 70 - 199 mg/dL [facility] Comment: Interpretive Data Fasting glucose >/= 126 mg/dl is diagnostic for diabetes. ?? Fasting is defined as no caloric intake for at least 8 hours. Fasting glucose between 100 mg/dl to 125 mg/dl is diagnostic of prediabetes. In a patient with classic symptoms of hyperglycemia or hyperglycemic crisis, a random glucose >/= 200 mg/dl is diagnostic for diabetes. In the absence of unequivocal hyperglycemia, results should be confirmed by repeat testing. The classification and Diagnosis of Diabetes Diabetes Care 2021; 46: S19-S40. Current interpretive data was last revised 2022. Calcium 10.1 8.5 - 10.3 mg/dL [facility] Bilirubin, total 0.4 0.1 - 1.2 mg/dL [facility] Protein, pl 8.2 6.5 - 8.5 g/dL [facility] Albumin 4.8 3.5 - 5.0 g/dL [facility] Alk phos 99 40 - 130 Units/L [facility] ALT 46 7 - 55 Units/L [facility] AST 29 10 - 50 Units/L [facility] Blood 09/01/2023 3:45 PM CDT 09/01/2023 3:58 PM CDT Kip Bishop MD LAB BLOOD ORDERABLES Fi nal Result Performing Organization Address [facility] Phone Number [facility] [place] [address] * (ABNORMAL) CBC with auto differential (09/01/2023 3:45 PM CDT) [facility] WBC 10.8(H) 3.8 - 9.9 K/cumm Hgb 16.0 13.0 - 17.5 g/dL [facility] Hct 45.1 38.9 - 50.3 % [facility] Plt 376 150 - 400 K/cumm [facility] MPV 10.0 9.1 - 12.3 fL [facility] RBC 5.39 4.30 - 5.80 M/cumm [facility] MCV 83.7 81.3 - 96.4 fL [facility] MCH 29.7 27.1 - 33.3 pg [facility] MCHC 35.5 32.3 - 35.7 g/dL [facility] RDW CV 12.5 11.1 - 14.9 % [facility] RDW SD 37.8 35.7 - 48.1 fL [facility] NRBC abs 0.00 0.00 - 0.01 K/cumm [facility] Blood 09/01/2023 3:45 PM CDT 09/01/2023 3:57 PM CDT Kip Bishop MD LAB BLOOD ORDERABLES Fi nal Result Performing Organization Address [facility] Phone Number [facility] [place] [address] documented in this encounter Visit Diagnoses Diagnosis Pill esophagitis- Primary Other esophagitis Cannabinoid hyperemesis syndrome Elevated glucose Other abnormal glucose documented in this encounter Administered Medications Inactive Administered Medications - up to 3 most recent administrations Medication Order MAR Action Action Date Dose Rate Site al & mag hydroxide simethicone-lidocaine oral suspension mixture 40 mL, oral, Once, On 09/01/23 at 1614, For 1 dose Given 09/01/2023 4:39 PM CDT 40 mL aluminum-magnesium hydroxide-simethicone (MAALOX) 40-40-4 mg/mL oral suspension 30 mL 30 mL, oral, Once, On 09/01/23 at 1539, For 1 dose, Indications: DyspepsiaIndications:Dyspep thang Given 09/01/2023 3:47 PM CDT 30 mL dextrose 5% and sodium chloride 0.9% infusion (premix) 125 mL/hr, intravenous, Continuous, Starting on 09/01/23 at 1949, For 8 days droPERidol (INAPSINE) injection 1.25 mg 1.25 mg, intravenous, Administer over 5 Minutes, Once, On Brady 09/01/23 at 1710, For 1 dose Given 09/01/2023 6:05 PM CDT 1.25 mg famotidine (PEPCID) 20 mg/50 mL in sodium chloride 0.9% (premix) 20 mg 20 mg, intravenous, at 150 mL/hr, Administer over 20 Minutes, Once, On 09/01/23 at 1614, For 1 dose New Bag 09/01/2023 4:40 PM CDT 20 mg 150 mL/hr Lactated Ringer's (LR) bolus 1,000 mL 1,000 mL, intravenous, Once, On Brady 09/01/23 at 1539, For 1 dose New Bag 09/01/2023 3:48 PM CDT 1,000 mL Lactated Ringer's (LR) bolus 1,000 mL 1,000 mL, intravenous, Once, On Brady 09/01/23 at 2146, For 1 dose New Bag 09/01/2023 10:16 PM CDT 1,000 mL ondansetron (ZOFRAN) injection 8 mg 8 mg, intravenous, Administer over 2 Minutes, Once, On Brady 09/01/23 at 1539, For 1 dose, Indications: Nausea and VomitingIndications:Nausea and Vomiting Given 09/01/2023 3:47 PM CDT 8 mg documented in this encounter Active and Recently Administered Medications Times are shown in CDT. Scheduled Medication Order 08/31/2023 09/01/2023 09/02/2023 al & mag hydroxide simethicone-lidocaine oral suspension mixture (COMPLETED) 40 mL, oral, Once, On 09/01/23 at 1614, For 1 dose 1639 (Given - Provider: Jennifer Hodge RN) aluminum-magnesium hydroxide-simethicone (MAALOX) 40-40-4 mg/mL oral suspension 30 mL (COMPLETED) 30 mL, oral, Once, On 09/01/23 at 1539, For 1 dose, Indications: Dyspepsia 1547 (Given - Provider: Jennifer Hodge RN) droPERidol (INAPSINE) injection 1.25 mg (COMPLETED) 1.25 mg, intravenous, Administer over 5 Minutes, Once, On 09/01/23 at 1710, For 1 dose 1805 (Given - Provider: Mark Montes RN) famotidine (PEPCID) 20 mg/50 mL in sodium chloride 0.9% (premix) 20 mg (COMPLETED) 20 mg, intravenous, at 150 mL/hr, Administer over 20 Minutes, Once, On 09/01/23 at 1614, For 1 dose 1640 (New Bag - Provider: Sherrill Alvarado RN)1849 (Stopped - Provider: Stiven Cheung RN) Lactated Ringer's (LR) bolus 1,000 mL (COMPLETED) 1,000 mL, intravenous, Once, On 09/01/23 at 1539, For 1 dose 1548 (New Bag - Provider: Sherrill Alvarado RN)1849 (Stopped - Provider: Stiven Cheung RN) Lactated Ringer's (LR) bolus 1,000 mL (COMPLETED) 1,000 mL, intravenous, Once, On 09/01/23 at 2146, For 1 dose 2216 (New Bag - Provider: Stiven Cheung RN)2306 (Stopped - Provider: Stiven Cheung RN) ondansetron (ZOFRAN) injection 8 mg (COMPLETED) 8 mg, intravenous, Administer over 2 Minutes, Once, On 09/01/23 at 1539, For 1 dose, Indications: Nausea and Vomiting 1547 (Given - Provider: Jennifer Hodge RN) Continuous Medication Order 08/31/2023 09/01/2023 09/02/2023 dextrose 5% and sodium chloride 0.9% infusion (premix) 125 mL/hr, intravenous, Continuous, Starting on 09/01/23 at 1949, For 8 days 2025 (Not Given - Provider: Eileen Bermudez RN - Reason: Other - Comment: do not give per MD barrientos) documented in this encounter Orders Medications Ordered That Thor ht Not Have Been Administered Count Last Ordered Date First Ordered Date dextrose 5% and sodium chlor onesimo 0.9% infusion (premix) 1 09/01/2023 diphenhydrAMINE (BENADRYL) tab/cap 25 mg 1 09/01/2023 Lab Orders Without Results Count Last Ordered D ate First Ordered Date LIPASE 1 09/01/2023 POCT KETONE, BLOOD 1 09/01/2023 documented in this encounter Care Teams Juvenile Counselor Relationship Specialty Start Date End Date Unknown, Notinfile PCP - General 09/01/23 documented as of this encounter
--- OUTSIDE RECORDS SUMMARY | 2024-04-08 10:31 | XMS_ITS | Encounter Summary ---
Author Organization [facility] Address [address] [place] [address] Care Team Providers Care Sql Report Developer Name Role Phone Mckayla Mejia DO Primary Care Provider [phone] Encounter Details Date Type Department Care Team (Late st Contact Info) Description 05/19/2023 External Device Data [place] ABSTRACTION Provider, Abstract NO ADDRESS ON FILE Social History Tobacco Use Types Packs/Day Years Used Date Smoking Tobacco: Former Cigarettes 0.5 20 0 04/22/1996 - 04/22/2016 Smokeless Tobacco: Never Alcohol Use Standard Drinks/Week Comments Yes 0 (1 standard drink = 0.6 oz pur e alcohol) Socially Sex and Gender Information Value Date Recorded Sex Assigned at Not on file Gender Identity Not on file Sexual Orientation Not on file documented as of this encounter Plan of Treatment Not on file documented as of this encounter Visit Diagnoses Not on filedocumented in this encounter Additional Health Concerns Assessment Noted Time PHQ-9 Depression Total Score: 1 03/07/20 23 8:22 AM JACKET CHANGER documented as of this encounter Care Teams Sql Report Developer Relationship Specialty Start Date End Date Mckayla Mejia DO [address] [place] [phone] PCP - General Internal Medicine 03/07/23 documented as of this encounter
--- OUTSIDE RECORDS SUMMARY | 2024-04-08 10:31 | XMS_ITS | Encounter Summary ---
Author Organization [facility] Address [address] [place] [address] Care Team Providers Care Kennel Manager Dog Track Name Role Phone Mckayla Mejia DO Primary Care Provider [phone] Encounter Details Date Type Department Care Team (Late st Contact Info) Description 03/15/2023 Abstract [facility] Internal Medicine - [place] [address] [place] [address] Mckayla Mejia DO [address] [place] [phone] Social History Tobacco Use Types Packs/Day Years [...] Total Score: 1 03/07/20 23 8:22 AM CONVEYOR FEEDER documented as of this encounter Care Teams Kennel Manager Dog Track Relationship Specialty Start Date End Date Mckayla Mejia DO [address] [place] [phone] PCP - General Internal Medicine 03/07/23 documented as of this encounter
--- OUTSIDE RECORDS SUMMARY | 2024-04-08 10:31 | XMS_ITS | Encounter Summary ---
Author Organization [facility] Address [address] [place] [address] Care Team Providers Care Associate Director Career Services Name Role Phone Mckayla Mejia Primary Care Provider [phone] Reason for Referral * Eval and Treat (Routine) - Closed Specialty Diagnoses / Procedures Referred By Ploo t Referred To Contact Perioperative Diagnoses Encounter for screening colonoscopy Procedures ND OFFICE/OUTPATIENT ESTABLISHED MOD MDM 30-39 MIN ND OFFICE/OUTPATIENT NEW MODERATE MDM 45-59 MINUTES Geno Jin PA [address] [address] [facility] [address] [place] [address] Referral ID Status Reason Start Date Expiration Date Visits Requested Visits Authorized [id number] Closed Performing Department to Schedule 03/07/2023 03/07/2024 1 1 L DIRECTOR Reason for Visit * Reason Comments Establish Care Diarrhea Encounter Details Date Type Department Care Team (Late st Contact Info) Description 03/07/2023 8:00 AM HOTEL DIRECTOR Office Visit [facility] Internal Medicine - [address] [place] [address] Geno Jin PA [address] [place] [address] [address] [place] [address] Chronic diarrhea (Primary Dx); Acute bilateral thoracic back pain; Encounter for screening colonoscopy; Need for influenza vaccination Social History Tobacco Use Types Packs/Day Years [...] Sign Reading Time Taken Comments Blood Pressure 120/84 03/07/2023 8:45 AM HOTEL DIRECTOR Pulse 79 03/07/2023 8:16 AM HOTEL DIRECTOR Temperature - - Respiratory Rate - - Oxygen Saturation 98% 03/07/2023 8:16 AM HOTEL DIRECTOR Inhaled Oxygen Concentration - - Weight 117.8 kg (259 lb 12.8 oz) 03/07/2023 8:16 AM HOTEL DIRECTOR Height - - Body Mass Index - - documented in this encounter Progress Notes * Geno Jin PA - 03/07/2023 8:22 AM CST Assessment and Plan: Return if symptoms worsen or fail to improve. Jigar Velez is a 47 y.o. male Jigar was seen today for establish care and diarrhea. Diagnoses and all orders for this visit: Chronic diarrhea - CBC WITH DIFFERENTIAL; Future - COMPREHENSIVE METABOLIC PANEL; Future - STOOL CULTURE W/SHIGA TOXIN; Future - C. DIFFICILE DETECTION; Future - GIARDIA & CRYPTOSPORIDIUM ANTIGEN; Future - LIPASE; Future Ongoing diarrhea x 8 months. Obtain stool cultures and labs. Acute bilateral thoracic back pain Appears MSK. Recommend heat to the area and gentle stretching. Will avoid NSAIDs until diarrhea improves. Encounter for screening colonoscopy - AMB REFERRAL TO GASTROENTEROLOGY Need for influenza vaccination - INFLUENZA VACCINE QUADRIVALENT 6 MOS UP PF IM CC: Chief Complaint Patient presents with [facility] Diarrhea HPI: Jigar Velez presents for diarrhea and back pain. Diarrhea x 8 months. 3-4 episodes per day with each bowel movement. No blood in the stool. Tried changing his diet, trying imodium, or starting a probiotics without change in his symptoms. Has intermittent LLQ abdominal pain with this. Resolves after having a bowel movement but then comes back shortly after. No international travel. Denies fever, chills, night sweats, or unintentional weight loss. Was on erythromycin in December after a molar extraction which worsened his symptoms but then they went back to their baseline shortly after stopping it. Feels his middle back needs to be popped. Started a couple weeks ago. Nothing seems to worsening his symptoms or improve his symptoms. No numbness or tingling in B/L UE and LE. No weakness. ROS: 10 point ROS negative except for as indicated in HPI Past Medical History: Diagnosis Date Asthma ILDEFONSO (generalized anxiety disorder) No past surgical history on file. Family History Problem Relation Name Age of Onset Melanoma Father Breast Cancer Mother 50 Heart Attack Maternal Grandfather 45 Heart Disease Maternal Grandfather Heart Disease Paternal Grandmother Social History Tobacco Use Smoking status: Former Packs/day: 0.50 Years: 20.00 Additional pack years: 0.00 Total pack years: 10.00 Types: Cigarettes Quit date: 04/22/2016 Years since quittin.8 Smokeless tobacco: Never Vaping Use Vaping Use: Never used Substance Use Topics Alcohol use: Yes Comment: Socially Drug use: Yes Types: Marijuana No Known Allergies No current outpatient medications on file. No current facility-administered medications for this visit. Physical Exam: BP 120/84 Pulse 79 Wt 117.8 kg (259 lb 12.8 oz) SpO2 98% GENERAL: No apparent distress, alert and oriented. HEENT: Atraumatic, normocephalic. Extraocular movements are intact. Sclera nonicteric. NECK: No lymphadenopathy, no thyroid masses palpated. CARDIAC: Regular rate and rhythm, no LE edema LUNGS: Clear to auscultation bilaterally, normal respiratory effort ABDOMEN: Soft, nondistended, normal bowel sounds, mild RUQ abdominal pain with guarding MUSCULOSKELETAL: No t-spine tenderness SKIN: Warm and dry, no pallor PSYCH: Normal mood and affect. No tangential thoughts or pressured speech. Depression Screen Positive: PHQ-2 score >= 3 or PHQ-9 score >= 9 PHQ-2 Total: 1 (03/07/2023 8:22 AM) PHQ-9 Total: 1 (03/07/2023 8:22 AM) DEPRESSION PLAN OF CARE His depression screen was negative. TOBACCO/NICOTINE COUNSELING He is not a tobacco/nicotine user. L DIRECTOR documented in this encounter Plan of Treatment Scheduled Referrals Name Type Priority Associated Diagnoses Order Schedule AMB REFERRAL TO GASTROENTEROLOGY Outpatient Referral Routine Encounter for screening colonoscopy Ordered: 03/07/2023 documented as of this encounter Procedures Procedure Name Priority Date/Time Associated Diagnosis Comments C. DIFFICILE DETECTION Routine 9:48 AM HOTEL DIRECTOR Chronic diarrhea GIARDIA & CRYPTOSPORIDIUM ANTIGEN Routine 03/11/2023 9:48 AM HOTEL DIRECTOR STOOL CULTURE W/SHIGA TOXIN Routine 03/11/2023 9:48 AM HOTEL DIRECTOR Chronic diarrhea CBC WITH DIFFERENTIAL Routine 03/07/2023 9:30 AM HOTEL DIRECTOR Chronic diarrhea LIPASE Routine 03/07/2023 9:30 AM HOTEL DIRECTOR COMPREHENSIVE METABOLIC PANEL Routine 03/07/2023 9:30 AM HOTEL DIRECTOR Chronic diarrhea documented in this encounter Results * GIARDIA & CRYPTOSPORIDIUM ANTIGEN (03/11/2023 9:48 AM HOTEL DIRECTOR) CRYPTOSPORIDIUM AG SEE NOTE [facility] Comment: ??CRYPTOSPORIDIUM ANTIGEN, EIA ?Micro Number: ?[id number] ??Test Status: ? Final ??Specimen Source: ?? Stool ??Specimen Quality: ??Adequate ??Cryptosporidium: ?? Not Detected ??Reference Range: ?? Not Detected ? NOTE: Due to intermittent shedding, one negative ? sample does not necessarily rule out the presence ? of a parasitic infection. GIARDIA AG SEE NOTE [facility] Comment: ??GIARDIA AG, EIA, STOOL ?Micro Number: ?[id number] ??Test Status: ? Final ??Specimen Source: ?? Stool ??Specimen Quality: ??Adequate ??Giardia Result 1: ??Not Detected ??Reference Range: ?? Not Detected ? NOTE: Due to intermittent shedding, one negative ? sample does not necessarily rule out the presence ? of a parasitic infection. Test Performed at: [place] [address] [place], [place] ??[address] Sangita Boothe 03/11/2023 9:48 AM HOTEL DIRECTOR 03/12/2023 12:42 AM HOTEL DIRECTOR Geno MORIN MICROBIOLOGY - GENER AL ORDERABLES Performing Organization Address City/[facility] Phone Number [facility] [phone] [place] [address] [place] [address] * C. DIFFICILE DETECTION (03/11/2023 9:48 AM HOTEL DIRECTOR) C DIFFICILE TOXIN B QUAL NOT DETECTED NOT DETECTED [facility] Comment: This test is for use only with liquid or soft stools; performance characteristics of other clinical specimen types have not been established. This assay was performed by [employer]Former[employer](R) PCR. The performance characteristics of this assay have been determined by [facility]. Performance characteristics refer to the analytical performance of the test. For additional information, please refer to http://education.Adeptence.PATHEOS/faq/YTT770 (This link is being provided for informational/educational purposes only.) Test Performed at: [facility] [address] [place], [place] ??[address] Sangita Boothe MD Stool STOOL SPECIMEN / Unknown 03/11/2023 9:48 AM HOTEL DIRECTOR 03/12/2023 3:09 AM HOTEL DIRECTOR Geno MORIN MICROBIOLOGY - GENER AL ORDERABLES Performing Organization Address City/State/ZIP [facility] Phone Number [facility] [phone] [facility] [address] [place] [address] * STOOL CULTURE W/SHIGA TOXIN (03/11/2023 9:48 AM HOTEL DIRECTOR) CAMPY ANTIGEN, EIA SEE NOTE [facility] Comment: ??CAMPYLOBACTER SPP. AG,EIA ?Micro Number: ?[id number] ??Test Status: ? Final ??Specimen Source: ?? Stool ??Specimen Quality: ??Adequate ??Campy Ag Result: ?? Not Detected ??Reference Range: ?? Not Detected ?? E.COLI SHIGA TOXIN, EIA SEE NOTE [facility] Comment: ??SHIGA TOXINS, EIA W/RFL TO E.COLI O157 CULTURE ?Micro Number: ?[id number] ??Test Status: ? Final ??Specimen Source: ?? Stool ??Specimen Quality: ??Adequate ??Shiga Toxin: ? Not Detected ??Reference Range: ?? Not Detected ?? STOOL CULTURE SEE NOTE [facility] Comment: ??SALMONELLA AND SHIGELLA, CULTURE ?Micro Number: ?[id number] ??Test Status: ? Final ??Specimen Source: ?? Stool ??Specimen Quality: ??Adequate ??Result: ?No Salmonella or Shigella isolated Test Performed at: [facility] [place] [address] [place] ??[phone] [facility] Stool STOOL SPECIMEN / Unknown 03/11/2023 9:48 AM HOTEL DIRECTOR 03/12/2023 12:42 AM HOTEL DIRECTOR Geno MORIN MICROBIOLOGY - GENER AL ORDERABLES [facility] [phone] [place] [address] [place] [address] * LIPASE (03/07/2023 9:30 AM HOTEL DIRECTOR) LIPASE 21 7 - 60 U/L [facility] Comment: Test Performed at: [facility] [address] [place], [place] ??[address] Sangita Boothe 03/07/2023 9:30 AM HOTEL DIRECTOR 03/07/2023 9:33 AM HOTEL DIRECTOR Geno MORIN CHEMISTRY ORDERABLES [facility] [phone] [facility] [address] [place] [address] * (ABNORMAL) COMPREHENSIVE METABOLIC PANEL (03/07/2023 9:30 AM HOTEL DIRECTOR) GLUCOSE 293(H) 65 - 99 mg/dL [facility] Comment: For someone without known diabetes, a glucose value >125 mg/dL indicates that they may have diabetes and this should be confirmed with a follow-up test. ? Fasting reference interval BUN 16 7 - 25 mg/dL [facility] CREATININE 0.82 0.60 - 1.29 mg/dL [facility] GFR 110 > OR = 60 mL/min/1. 73m2 [facility] BUN/CREAT RATIO SEE NOTE: 6 - 22 (calc) [facility] Comment: ?? Not Reported: BUN and Creatinine are within ?? reference range. ? SODIUM 133(L) 135 - 146 mmol/L [facility] POTASSIUM 5.0 3.5 - 5.3 mmol/L [facility] CHLORIDE 99 98 - 110 mmol/L [facility] CO2 25 20 - 32 mmol/L [facility] CALCIUM 10.0 8.6 - 10.3 mg/dL [facility] TOTAL PROTEIN 7.0 6.1 - 8.1 g/dL [facility] ALBUMIN 4.2 3.6 - 5.1 g/dL [facility] GLOBULIN 2.8 1.9 - 3.7 g/dL (calc) [facility] ALBUMIN/GLOBULIN RATIO 1.5 1.0 - 2.5 (calc) [facility] BILIRUBIN TOTAL 0.4 0.2 - 1.2 mg/dL [facility] ALKALINE PHOSPHATASE 74 36 - 130 U/L [facility] AST 14 10 - 40 U/L [facility] ALT 34 9 - 46 U/L [facility] Comment: Test Performed at: [facility] [address] [place], [place] ??[address] Sangita Boothe Blood 03/07/2023 9:30 AM HOTEL DIRECTOR 03/07/2023 9:33 AM HOTEL DIRECTOR Geno MORIN CHEMISTRY ORDERABLES [facility] [phone] [place] [address] [place] [address] * CBC WITH DIFFERENTIAL (03/07/2023 9:30 AM HOTEL DIRECTOR) WBC 8.0 3.8 - 10.8 Thousand/u L [facility] Martines RBC 5.26 4.20 - 5.80 Million/uL [facility] Conrad HEMOGLOBIN 15.7 13.2 - 17.1 g/dL [facility] HEMATOCRIT 47.4 38.5 - 50.0 % [facility] MCV 90.1 80.0 - 100.0 fL [facility] MCH 29.8 27.0 - 33.0 pg [facility] MCHC 33.1 32.0 - 36.0 g/dL [facility] RDW 12.7 11.0 - 15.0 % [facility] PLATELETS 363 140 - 400 Thousand/u L [facility] MPV 10.1 7.5 - 12.5 fL [facility] NEUTROPHIL ABSOLUTE 4,632 1,500 - 7,800 cells/uL [facility] LYMPHOCYTE ABSOLUTE 2,640 850 - 3,900 cells/uL [facility] MONOCYTE ABSOLUTE 488 200 - 950 cells/uL [facility] EOSINOPHIL ABSOLUTE 192 15 - 500 cells/uL [facility] BASOPHILS ABSOLUTE 48 0 - 200 cells/uL [facility] NEUTROPHIL 57.9 % [facility] LYMPHOCYTES 33.0 % [facility] MONOCYTE 6.1 % [facility] EOSINOPHILS 2.4 % [facility] BASOPHILS 0.6 % [facility] Comment: Test Performed at: [facility] [address] [place] ??[phone] Sangita Boothe Blood 03/07/2023 9:30 AM HOTEL DIRECTOR 03/07/2023 9:33 AM HOTEL DIRECTOR Geno MORIN HEMATOLOGY ORDERABLE S [facility] [phone] [facility] [address] [place] [address] documented in this encounter Visit Diagnoses Diagnosis Chronic diarrhea- Primary Diarrhea Acute bilateral thoracic back pain Encounter for screening colonoscopy Special screening for malignant neoplasms, colon Need for influenza vaccination Need for prophylactic vaccination and inoculation against influenza documented in this encounter Additional Health Concerns Assessment Noted Time PHQ-9 Depression Total Score: 1 03/07/20 23 8:22 AM HOTEL DIRECTOR documented as of this encounter Care Teams Associate Director Career Services Relationship Specialty Start Date End Date Mckayla Mejia DO [address] [place] [phone] PCP - General Internal Medicine 03/07/23 documented as of this encounter
--- OUTSIDE RECORDS SUMMARY | 2024-04-08 10:31 | XMS_ITS | Encounter Summary ---
Author Organization [facility] Address [address] [place] [address] Care Team Providers Care Net Developer Architect Name Role Phone Mckayla Mejia DO Primary Care Provider [phone] Encounter Details Date Type Department Care Team (Late st Contact Info) Description 05/17/2023 External Device Data STL ABSTRACTION Provider, Abstract [...] Total Score: 1 03/07/20 23 8:22 AM CORRECTIONS SERGEANT documented as of this encounter Care Teams Net Developer Architect Relationship Specialty Start Date End Date Mckayla Mejia DO [address] [place] [phone] PCP - General Internal Medicine 03/07/23 documented as of this encounter
--- OUTSIDE RECORDS SUMMARY | 2024-04-08 10:31 | XMS_ITS | Encounter Summary ---
Author Organization [facility] Address [address] [place] [address] Care Team Providers Care Brush Head Maker Name Role Phone Mckayla Mejia DO Primary Care Provider +1 -[phone] Encounter Details Date Type Department Care Team (Late st Contact Info) Description 07/23/2023 External Device Data STL ABSTRACTION Provider, Abstract [...] Total Score: 1 03/07/20 23 8:22 AM JACKERMAN documented as of this encounter Care Teams Brush Head Maker Relationship Specialty Start Date End Date Mckayla Mejia DO [address] [place] [place] [id number] PCP - General Internal Medicine 03/07/23 documented as of this encounter
--- OUTSIDE RECORDS SUMMARY | 2024-04-08 10:31 | XMS_ITS | Encounter Summary ---
Author Organization [facility] Address [address] [place] [address] Care Team Providers Care Paperhanger Apprentice Name Role Phone Mckayla Mejia DO Primary Care Provider +1 -[phone] Reason for Visit * Reason Onset Date Comments Medication Review 03/11/2023 Encounter Details Date Type Department Care Team (Late st Contact Info) Description 03/11/2023 Telephone [facility] Internal Medicine - [facility] [address] [facility] [place] [address] Geno Jin PA [address] [facility] [address] [place] [address] Medication Review Social History Tobacco Use Types Packs/Day Years [...] on file documented as of this encounter Miscellaneous Notes * Telephone Encounter - Geno Jin PA - 03/11/2023 1:18 PM CST Sent in [employer]. EATION MANAGER * Telephone Encounter - Natalia Arenas RMA - 03/11/2023 1:07 PM CST Images from the original note were not included. EATION MANAGER documented in this encounter Plan of Treatment Not on file documented as of this encounter Visit Diagnoses Not on filedocumented in this encounter Additional Health Concerns Assessment Noted Time PHQ-9 Depression Total Score: 1 03/07/20 23 8:22 AM RECREATION MANAGER documented as of this encounter Care Teams Paperhanger Apprentice Relationship Specialty Start Date End Date Mckayla Mejia DO [address] [place] [phone] PCP - General Internal Medicine 03/07/23 documented as of this encounter
--- OUTSIDE RECORDS SUMMARY | 2024-04-08 10:31 | XMS_ITS | Encounter Summary ---
Author Organization [facility] Address [address] [place] [address] Care Team Providers Care Tile Ditcher Name Role Phone Mckayla Mejia DO Primary Care Provider +1 -[phone] Encounter Details Date Type Department Care Team (Late st Contact Info) Description 01/21/2024 External Device Data STL ABSTRACTION Provider, Abstract [...] Total Score: 1 03/07/20 23 8:22 AM MANAGER ASSISTED LIVING documented as of this encounter Care Teams Tile Ditcher Relationship Specialty Start Date End Date Mckayla Mejia DO [address] [place] [phone] PCP - General Internal Medicine 03/07/23 documented as of this encounter
--- OUTSIDE RECORDS SUMMARY | 2024-04-08 10:31 | XMS_ITS | Encounter Summary ---
Author Organization [facility] Address [address] [place] [address] Care Team Providers Care Water Resource Specialist Name Role Phone Mckayla Mejia DO Primary Care Provider +1 -[phone] Encounter Details Date Type Department Care Team (Late st Contact Info) Description 02/04/2024 External Device Data STL ABSTRACTION Provider, Abstract [...] Total Score: 1 03/07/20 23 8:22 AM LASER PRINT OPERATOR documented as of this encounter Care Teams Water Resource Specialist Relationship Specialty Start Date End Date Mckayla Mejia DO [address] [place] [phone] PCP - General Internal Medicine 03/07/23 documented as of this encounter
--- OUTSIDE RECORDS SUMMARY | 2024-04-08 10:31 | XMS_ITS | Encounter Summary ---
Author Organization [facility] Address [address] [place] [address] Care Team Providers Care Cell Feed Department Supervisor Name Role Phone Mckayla Mejia DO Primary Care Provider +1 -[phone] Encounter Details Date Type Department Care Team (Late st Contact Info) Description 03/15/2023 Abstract [facility] Internal Medicine - [facility] [place] [address] Mckayla Mejia DO [address] [...] Total Score: 1 03/07/20 23 8:22 AM PENSIONS RETIREMENT PLAN SPECIALIST documented as of this encounter Care Teams Cell Feed Department Supervisor Relationship Specialty Start Date End Date Mckayla Mejia DO [address] [place] [address] PCP - General Internal Medicine 03/07/23 documented as of this encounter
--- OUTSIDE RECORDS SUMMARY | 2024-04-08 10:31 | XMS_ITS | Encounter Summary ---
Author Organization [facility] Address [address] [place] [address] Care Team Providers Care Crew Leader Name Role Phone Mckayla Mejia DO Primary Care Provider +1 -[phone] Encounter Details Date Type Department Care Team (Late st Contact Info) Description 07/12/2023 External Device Data STL ABSTRACTION Provider, Abstract [...] Total Score: 1 03/07/20 23 8:22 AM ACID CONDENSER documented as of this encounter Care Teams Crew Leader Relationship Specialty Start Date End Date Mckayla Mejia DO [address] [place] [phone] PCP - General Internal Medicine 03/07/23 documented as of this encounter
--- OUTSIDE RECORDS SUMMARY | 2024-04-08 10:31 | XMS_ITS | Encounter Summary ---
Author Organization [facility] Address [address] [place] [address] Care Team Providers Care Clamp Jig Assembler Name Role Phone Mckayla Mejia DO Primary Care Provider +1 -[phone] Encounter Details Date Type Department Care Team (Late st Contact Info) Description 05/22/2023 External Device Data STL ABSTRACTION Provider, Abstract [...] Total Score: 1 03/07/20 23 8:22 AM DOZER OPERATOR documented as of this encounter Care Teams Clamp Jig Assembler Relationship Specialty Start Date End Date Mckayla Mejia DO [address] [place] [phone] PCP - General Internal Medicine 03/07/23 documented as of this encounter
--- OUTSIDE RECORDS SUMMARY | 2024-04-08 10:31 | XMS_ITS | Clinical Summary ---
Author Organization [employer] [facility] [address] Address [address] [place] [address] Care Team Providers Care Aviation Manager Name Role Phone Mckayla Mejia Primary Care Provider +1 -[phone] Allergies No known active allergies Medications Medication Sig Dispensed Refills Start Date End Date Status linaGLIPtin (TRADJENTA) 5 mg Tablet Take 1 Tablet (5 mg) by mouth daily. 90 Tablet 10/31/2023 Active Active Problems No known active problems Encounters Date Type Department Care Team Description 02/04/2024 External Device Data STL ABSTRACTION Provider, Abstract 01/21/2024 External Device Data STL ABSTRACTION Provider, Abstract from Last 3 Months Immunizations Name Administration Dates Next Due INFLUENZA VACCINE QUADRIVALENT 6 MOS UP PF IM Family History Medical History Relation Name Comments Melanoma Father Heart Attack Maternal Grandfather Heart Disease Maternal Grandfather Breast Cancer Mother Heart Disease Paternal Grandmother Relation Name Status Comments Father Maternal Grandfather Mother Paternal Grandmother Social History Tobacco Use Types Packs/Day Years [...] Comments Blood Pressure 120/84 03/07/2023 8:45 AM BRINE TANK TENDER Pulse 79 03/07/2023 8:16 AM BRINE TANK TENDER Temperature - - Respiratory Rate - - Oxygen Saturation 98% 03/07/2023 8:16 AM BRINE TANK TENDER Inhaled Oxygen Concentration - - Weight 117.8 kg (259 lb 12.8 oz) 03/07/2023 8:16 AM BRINE TANK TENDER Height - - Body Mass Index - - Plan of Treatment Health Maintenance Due Date Last Done Comments DTAP/TDAP/TD VACCINES (1 - Tdap) 1996 HEPATITIS B VACCINES (1 of 3 - 19+ 3-dose series) 1996 COLORECTAL SCREENING 2022 Colorectal Cancer Screening 2022 FIT-DNA Q 3 years 2022 FIT/FOBT Q 1 year 2022 Flex Sig/CT Colonography Q 5 years 2022 Preventative Visit- Commercial 04/22/2023 INFLUENZA VACCINE (#1) 2023 03/07/2023 HPV VACCINES Aged Out No longer eligi ble based on patient's age to complete this topic PNEUMOCOCCAL VACCINE 0-64 YEARS Aged Out No longer eligible based on patient's age to complete this topic Care Teams Aviation Manager Relationship Specialty Start Date End Date Mckayla Mejia DO [address] [place] [address] PCP - General Internal Medicine 03/07/23
--- OUTSIDE RECORDS SUMMARY | 2024-04-08 10:31 | XMS_ITS | Encounter Summary ---
Author Organization [facility] Address [address] [place] [address] Care Team Providers Care Steersman Name Role Phone Mckayla Mejia DO Primary Care Provider +1 -[phone] Encounter Details Date Type Department Care Team (Late st Contact Info) Description 05/18/2023 External Device Data STL ABSTRACTION Provider, Abstract [...] Total Score: 1 03/07/20 23 8:22 AM EQUIPMENT VALIDATION SPECIALIST documented as of this encounter Care Teams Steersman Relationship Specialty Start Date End Date Mckayla Mejia DO [address] [place] [phone] PCP - General Internal Medicine 03/07/23 documented as of this encounter
--- OUTSIDE RECORDS SUMMARY | 2024-04-08 10:31 | XMS_ITS | Encounter Summary ---
Author Organization [facility] Address [address] [place] [address] Care Team Providers Care Computer Support Analyst Name Role Phone Mckayla Mejia DO Primary Care Provider +1 -[phone] Reason for Visit * Reason Onset Date Comments Results 03/13/2023 Encounter Details Date Type Department Care Team (Late st Contact Info) Description 03/13/2023 Telephone [facility] Internal Medicine - [facility] [address] [place] [address] Mckayla Mejia DO [address] [place] [address] Results Social History Tobacco Use Types Packs/Day Years [...] encounter Miscellaneous Notes * Telephone Encounter - Rosana Lawler - 03/19/2023 4:57 PM FOUNTAIN ROLLER ASSEMBLER Patient was contacted and informed of results. Patient stated his understanding and will call as needed. TAIN ROLLER ASSEMBLER * Telephone Encounter - Rosana Lawler - 03/13/2023 2:19 PM FOUNTAIN ROLLER ASSEMBLER LM for patient to call back regarding results TAIN ROLLER ASSEMBLER * Telephone Encounter - Rosana Lawler - 03/13/2023 8:07 AM FOUNTAIN ROLLER ASSEMBLER LM for patient to call back regarding lab results. ----- Message from PATEINCE Hanks sent at 03/13/2023 7:52 AM FOUNTAIN ROLLER ASSEMBLER ----- Please let patient know all the stool cultures were negative for any infections. I recommended he continue with the colonoscopy. TAIN ROLLER ASSEMBLER documented in this encounter Plan of Treatment Not on file documented as of this encounter Visit Diagnoses Not on filedocumented in this encounter Additional Health Concerns Assessment Noted Time PHQ-9 Depression Total Score: 1 03/07/20 23 8:22 AM FOUNTAIN ROLLER ASSEMBLER documented as of this encounter Care Teams Computer Support Analyst Relationship Specialty Start Date End Date Mckayla Mejia DO [address] [place] [phone] PCP - General Internal Medicine 03/07/23 documented as of this encounter
--- OUTSIDE RECORDS SUMMARY | 2024-04-08 10:31 | XMS_ITS | Encounter Summary ---
Author Organization [facility] Address [address] [place] [address] Care Team Providers Care Tree Cutter Name Role Phone Mckayla Mejia DO Primary Care Provider +1 -[phone] Encounter Details Date Type Department Care Team (Late st Contact Info) Description 03/08/2023 Orders Only [facility] Internal Medicine - [facility] [address] [place] [address] Geno Jin PA [address] [facility] [address] [place] [address] Hyperglycemia (Primary Dx) Social History Tobacco Use Types Packs/Day Years [...] Procedure Name Priority Date/Time Associated Diagnosis Comments HEMOGLOBIN A1C Routine 03/07/2023 9:30 AM CARDIOLOGY COORDINATOR Hyperglycemia documented in this encounter Results * (ABNORMAL) HEMOGLOBIN A1C (03/07/2023 9:30 AM CARDIOLOGY COORDINATOR) HEMOGLOBIN A1C 10.9(H) <5.7 % of total Hgb [facility] Comment: For someone without known diabetes, a hemoglobin A1c value of 6.5% or greater indicates that they may have diabetes and this should be confirmed with a follow-up test. For someone with known diabetes, a value <7% indicates that their diabetes is well controlled and a value greater than or equal to 7% indicates suboptimal control. A1c targets should be individualized based on duration of diabetes, age, comorbid conditions, and other considerations. Currently, no consensus exists regarding use of hemoglobin A1c for diagnosis of diabetes for children. ?? ESTIMATED AVERAGE GLUCOSE (MG/DL) 266 mg/dL Vend larissa Martines ESTIMATED AVERAGE GLUCOSE (MMOL/L) 14.7 mmol/L [facility] Comment: Test Performed at: [facility] [place] [address] [place] ??[phone] YueAarti Boothe Blood 03/07/2023 9:30 AM CARDIOLOGY COORDINATOR 03/08/2023 6:53 PM CARDIOLOGY COORDINATOR Geno MORIN CHEMISTRY ORDERABLES [facility] [phone] [facility] [place] [address] [place] [address] documented in this encounter Visit Diagnoses Diagnosis Hyperglycemia- Primary Other abnormal glucose documented in this encounter Additional Health Concerns Assessment Noted Time PHQ-9 Depression Total Score: 1 03/07/20 23 8:22 AM CARDIOLOGY COORDINATOR documented as of this encounter Care Teams Tree Cutter Relationship Specialty Start Date End Date Mckayla Mejia DO [address] [place] [phone] PCP - General Internal Medicine 03/07/23 documented as of this encounter
--- OUTSIDE RECORDS SUMMARY | 2024-04-08 10:31 | XMS_ITS | Encounter Summary ---
Author Organization [facility] Address [address] [place] [address] Care Team Providers Care Lard Renderer Name Role Phone Mckayla Mejia DO Primary Care Provider +1 -[phone] Reason for Visit * Reason Onset Date Comments Medication Refill 10/31/2023 Encounter Details Date Type Department Care Team (Late st Contact Info) Description 10/31/2023 Refill [facility] Internal Medicine - [facility] [address] [place] [address] Geno Jin PA [address] [facility] [address] [place] [address] Social History Tobacco Use Types Packs/Day [...] Total Score: 1 03/07/20 23 8:22 AM INSTRUCTOR PRIVATE documented as of this encounter Care Teams Lard Renderer Relationship Specialty Start Date End Date Mckayla Mejia DO [address] [place] [address] PCP - General Internal Medicine 03/07/23 documented as of this encounter
--- OUTSIDE RECORDS SUMMARY | 2024-04-08 10:31 | XMS_ITS | Encounter Summary ---
Author Organization [facility] Address [address] [place] [address] Care Team Providers Care Ssis Ssrs Developer Name Role Phone Mckayla Mejai DO Primary Care Provider +1 -[phone] Encounter Details Date Type Department Care Team (Late st Contact Info) Description 04/03/2023 External Device Data STL ABSTRACTION Provider, Abstract [...] Total Score: 1 03/07/20 23 8:22 AM PROBATION SUPERVISOR documented as of this encounter Care Teams Ssis Ssrs Developer Relationship Specialty Start Date End Date Mckayla Mejia DO [address] [place] [phone] PCP - General Internal Medicine 03/07/23 documented as of this encounter
--- OUTSIDE RECORDS SUMMARY | 2024-04-08 10:31 | XMS_ITS | Encounter Summary ---
Author Organization [facility] Address [address] [place] [address] Care Team Providers Care Regional Sales Executive Name Role Phone Mckayla Mejia DO Primary Care Provider +1 -[phone] Encounter Details Date Type Department Care Team (Late st Contact Info) Description 03/07/2023 Abstract [facility] Internal Medicine - [facility] [address] [place] [address] Geno Jin PA [address] [facility] [address] [place] [address] Social History Tobacco Use Types Packs/Day [...] Total Score: 1 03/07/20 23 8:22 AM SLAB LIFTING ENGINEER documented as of this encounter Care Teams Regional Sales Executive Relationship Specialty Start Date End Date Mckayla Mejia DO [address] [place] [address] PCP - General Internal Medicine 03/07/23 documented as of this encounter
--- OUTSIDE RECORDS SUMMARY | 2024-04-08 10:31 | XMS_ITS | Encounter Summary ---
Author Organization [facility] Address [address] [place] [address] Care Team Providers Care Service Representative Name Role Phone Mckayla Mejia DO Primary Care Provider +1 -[phone] Encounter Details Date Type Department Care Team (Late st Contact Info) Description 07/09/2023 External Device Data STL ABSTRACTION Provider, Abstract [...] Total Score: 1 03/07/20 23 8:22 AM PRECISION FILER HAND documented as of this encounter Care Teams Service Representative Relationship Specialty Start Date End Date Mckayla Mejia DO [address] [place] [phone] PCP - General Internal Medicine 03/07/23 documented as of this encounter
--- OUTSIDE RECORDS SUMMARY | 2024-04-08 10:31 | XMS_ITS | Encounter Summary ---
Author Organization [facility] Address [address] [place] [address] Care Team Providers Care Journeyman Millwright Name Role Phone Mckayla Mejia DO Primary Care Provider +1 -[phone] Encounter Details Date Type Department Care Team (Late st Contact Info) Description 03/11/2023 Orders Only [facility] Internal [facility] [address] [facility] [place] [address] Geno Jin PA [address] [facility] [address] [place] [address] Type 2 diabetes mellitus without complication, with long-term current use of insulin (Primary Dx) Social History Tobacco Use Types [...] documented as of this encounter Visit Diagnoses Diagnosis Type 2 diabetes mellitus without complication, with long-term current use of insulin- Primary documented in this encounter Additional Health Concerns Infection Onset Date Last Indicated Resolved Time R/O C. diff 03/12/2023 03/11/2023 03/12/2023 5:42 PM ANNEALING OVEN OPERATOR Assessment Noted Time PHQ-9 Depression Total Score: 1 03/07/20 23 8:22 AM ANNEALING OVEN OPERATOR documented as of this encounter Care Teams Journeyman Millwright Relationship Specialty Start Date End Date Mckayla Mejia DO [address] [place] [place] [address] PCP - General Internal Medicine 03/07/23 documented as of this encounter
--- OUTSIDE RECORDS SUMMARY | 2024-04-08 13:53 | XMS_ITS | Encounter Summary ---
Author Organization [facility] Address [address] [place] [address] Care Team Providers Care Info Print Press Operator Name Role Phone Mckayla Mejia DO Primary Care Provider +1 -[phone] Reason for Visit * Reason Onset Date Comments Medication Refill 10/31/2023 Encounter Details Date Type Department Care Team (Late st Contact Info) Description 10/31/2023 Refill [facility] Internal Medicine - [facility] [address] [place] [address] Geno Jin PA [address] [facility] [address] [place] [address] Social History Tobacco Use Types Packs/Day [...] Total Score: 1 03/07/20 23 8:22 AM DATA MANAGEMENT ASSOCIATE documented as of this encounter Care Teams Info Print Press Operator Relationship Specialty Start Date End Date Mckayla Mejia DO [address] [place] [address] PCP - General Internal Medicine 03/07/23 documented as of this encounter
--- OUTSIDE RECORDS SUMMARY | 2024-04-08 13:53 | XMS_ITS | Encounter Summary ---
Author Organization [facility] Address [address] [place] [address] Care Team Providers Care Entry Level Paralegal Name Role Phone Mckayla Mejia DO Primary Care Provider +1 -[phone] Encounter Details Date Type Department Care Team [...] Total Score: 1 03/07/20 23 8:22 AM BURNT LIME DRAWER documented as of this encounter Care Teams Entry Level Paralegal Relationship Specialty Start Date End Date Mckayla Mejia DO [address] [place] [phone] PCP - General Internal Medicine 03/07/23 documented as of this encounter
--- OUTSIDE RECORDS SUMMARY | 2024-04-08 13:53 | XMS_ITS | Encounter Summary ---
Author Organization [facility] Address [address] [place] [address] Care Team Providers Care Variety Performer Name Role Phone Mckayla Mejia DO Primary Care Provider +1 -[phone] Encounter Details Date Type Department Care Team [...] Total Score: 1 03/07/20 23 8:22 AM COMMUNITY MENTAL HEALTH SOCIAL WORKER documented as of this encounter Care Teams Variety Performer Relationship Specialty Start Date End Date Mckayla Mejia DO [address] [place] [phone] PCP - General Internal Medicine 03/07/23 documented as of this encounter
--- OUTSIDE RECORDS SUMMARY | 2024-04-08 13:53 | XMS_ITS | Encounter Summary ---
Author Organization [facility] Address [address] [place] [address] Care Team Providers Care Orthopaedic General Name Role Phone Mckayla Mejia DO Primary Care Provider +1 -[phone] Encounter Details Date Type Department Care Team [...] Total Score: 1 03/07/20 23 8:22 AM RAILROAD DESIGN CONSULTANT documented as of this encounter Care Teams Orthopaedic General Relationship Specialty Start Date End Date Mckayla Mejia DO [address] [place] [phone] PCP - General Internal Medicine 03/07/23 documented as of this encounter
--- OUTSIDE RECORDS SUMMARY | 2024-04-08 13:53 | XMS_ITS | Encounter Summary ---
Author Organization [facility] Address [address] [place] [address] Care Team Providers Care Package Lift Operator Name Role Phone Mckayla Mejia DO Primary Care Provider +1 -[phone] Encounter Details Date Type Department Care Team [...] Total Score: 1 03/07/20 23 8:22 AM LOAN MANAGER documented as of this encounter Care Teams Package Lift Operator Relationship Specialty Start Date End Date Mckayla Mejia DO [address] [place] [place] [phone] PCP - General Internal Medicine 03/07/23 documented as of this encounter
--- OUTSIDE RECORDS SUMMARY | 2024-04-08 13:53 | XMS_ITS | Encounter Summary ---
Author Organization [facility] Address [address] [place] [address] Care Team Providers Care Slp Name Role Phone Mckayla Mejia Primary Care Provider +1 [phone] Reason for Referral * Eval and Treat (Routine) - Closed Specialty Diagnoses / Procedures Referred By Polo t Referred To Contact Perioperative Diagnoses Encounter for screening colonoscopy Procedures MT OFFICE/OUTPATIENT ESTABLISHED MOD MDM 30-39 MIN MT OFFICE/OUTPATIENT NEW MODERATE MDM 45-59 MINUTES Geno Jin PA [address] [address] [facility] [address] [place] [address] Referral ID Status Reason Start Date Expiration Date Visits Requested Visits Authorized [id number] Closed Performing Department to Schedule 03/07/2023 03/07/2024 1 1 UTING MACHINE OPERATOR Reason for Visit * Reason Comments Establish Care Diarrhea Encounter Details Date Type Department Care Team (Late st Contact Info) Description 03/07/2023 8:00 AM COMPUTING MACHINE OPERATOR [facility] Visit [facility] Internal Medicine - [address] [place] [address] Geno Jin PA [address] [place] [address] [address] [place] [address] Chronic diarrhea (Primary Dx); Acute [...] Comments Blood Pressure 120/84 03/07/2023 8:45 AM COMPUTING MACHINE OPERATOR Pulse 79 03/07/2023 8:16 AM COMPUTING MACHINE OPERATOR Temperature - - Respiratory Rate - - Oxygen Saturation 98% 03/07/2023 8:16 AM COMPUTING MACHINE OPERATOR Inhaled Oxygen Concentration - - Weight 117.8 kg (259 lb 12.8 oz) 03/07/2023 8:16 AM COMPUTING MACHINE OPERATOR Height - - Body Mass Index - [...] IM CC: Chief Complaint Patient presents with [facility] Diarrhea HPI: Jigar Velez presents for diarrhea [...] COUNSELING He is not a tobacco/nicotine user. UTING MACHINE OPERATOR documented in this encounter Plan of Treatment Scheduled Referrals Name Type Priority Associated Diagnoses Order Schedule AMB REFERRAL TO GASTROENTEROLOGY Outpatient Referral Routine Encounter for screening colonoscopy Ordered: 03/07/2023 documented as of this encounter Procedures Procedure Name Priority Date/Time Associated Diagnosis Comments C. DIFFICILE DETECTION Routine 9:48 AM COMPUTING MACHINE OPERATOR Chronic diarrhea GIARDIA & CRYPTOSPORIDIUM ANTIGEN Routine 03/11/2023 9:48 AM COMPUTING MACHINE OPERATOR STOOL CULTURE W/SHIGA TOXIN Routine 03/11/2023 9:48 AM COMPUTING MACHINE OPERATOR Chronic diarrhea CBC WITH DIFFERENTIAL Routine 03/07/2023 9:30 AM COMPUTING MACHINE OPERATOR Chronic diarrhea LIPASE Routine 03/07/2023 9:30 AM COMPUTING MACHINE OPERATOR COMPREHENSIVE METABOLIC PANEL Routine 03/07/2023 9:30 AM COMPUTING MACHINE OPERATOR Chronic diarrhea documented in this encounter Results * GIARDIA & CRYPTOSPORIDIUM ANTIGEN (03/11/2023 9:48 AM COMPUTING MACHINE OPERATOR) CRYPTOSPORIDIUM AG SEE NOTE Q [facility] Comment: ??CRYPTOSPORIDIUM ANTIGEN, EIA ?Micro Number: ?[id number] ??Test Status: ? Final ??Specimen Source: ?? Stool ??Specimen Quality: ??Adequate ??Cryptosporidium: ?? Not Detected ??Reference Range: ?? Not Detected ? NOTE: Due to intermittent shedding, one negative ? sample does not necessarily rule out the presence ? of a parasitic infection. GIARDIA AG SEE NOTE [employer] [facility] Comment: ??GIARDIA AG, EIA, STOOL ?Micro Number: ?[id number] ??Test Status: ? Final ??Specimen Source: ?? Stool ??Specimen Quality: ??Adequate ??Giardia Result 1: ??Not Detected ??Reference Range: ?? Not Detected ? NOTE: Due to intermittent shedding, one negative ? sample does not necessarily rule out the presence ? of a parasitic infection. Test Performed at: [place] [address] [place] ??[address] Sangita Boothe 03/11/2023 9:48 AM COMPUTING MACHINE OPERATOR 03/12/2023 12:42 AM COMPUTING MACHINE OPERATOR Geno MORIN MICROBIOLOGY - GENER AL ORDERABLES Performing Organization Address City/[facility] Phone Number [facility] [phone] [place] [address] [place] [address] * C. DIFFICILE DETECTION (03/11/2023 9:48 AM COMPUTING MACHINE OPERATOR) C DIFFICILE TOXIN B QUAL NOT DETECTED NOT DETECTED [employer] [facility] Comment: This test is for use only with liquid or soft stools; performance characteristics of other clinical specimen types have not been established. This assay was performed by [employer]pert(R) PCR. The performance characteristics of this assay have been determined by [employer]. Performance characteristics refer to the analytical performance of the test. For additional information, please refer to http://[email or web address] Being [email or web address]/[email or web address] (This link is being provided for informational/educational purposes only.) Test Performed at: [facility] [address] [place], [place] ??[address] Sangita Boothe MD Stool STOOL SPECIMEN / Unknown 03/11/2023 9:48 AM COMPUTING MACHINE OPERATOR 03/12/2023 3:09 AM COMPUTING MACHINE OPERATOR Geno MORIN MICROBIOLOGY - GENER AL ORDERABLES Performing Organization Address City/State/ZIP [facility] Phone Number [facility] [phone] [employer] [address] [place] [address] * STOOL CULTURE W/SHIGA TOXIN (03/11/2023 9:48 AM COMPUTING MACHINE OPERATOR) CAMPY ANTIGEN, EIA SEE NOTE [employer] [facility] Martines Comment: ??CAMPYLOBACTER SPP. AG,EIA ?Micro Number: ?[id number] ??Test Status: ? Final ??Specimen Source: ?? Stool ??Specimen Quality: ??Adequate ??Campy Ag Result: ?? Not Detected ??Reference Range: ?? Not Detected ?? E.COLI SHIGA TOXIN, EIA SEE NOTE [facility] [employer] Martines Comment: ??SHIGA TOXINS, EIA W/RFL TO E.COLI O157 CULTURE ?Micro Number: ?[id number] ??Test Status: ? Final ??Specimen Source: ?? Stool ??Specimen Quality: ??Adequate ??Shiga Toxin: ? Not Detected ??Reference Range: ?? Not Detected ?? STOOL CULTURE SEE NOTE [employer] Martines Comment: ??SALMONELLA AND SHIGELLA, CULTURE ?Micro Number: ?[id number] ??Test Status: ? Final ??Specimen Source: ?? Stool ??Specimen Quality: ??Adequate ??Result: ?No Salmonella or Shigella isolated Test Performed at: [email or web address] [place] [address] [place] ??[address] [facility] Stool STOOL SPECIMEN / Unknown 03/11/2023 9:48 AM COMPUTING MACHINE OPERATOR 03/12/2023 12:42 AM COMPUTING MACHINE OPERATOR Geno MORIN MICROBIOLOGY - GENER AL ORDERABLES [facility] [phone] [place] [address] [place] [address] * LIPASE (03/07/2023 9:30 AM COMPUTING MACHINE OPERATOR) LIPASE 21 7 - 60 U/L [employer] Martines Comment: Test Performed at: [facility] [address] [place], [place] ??[address] Sangita Boothe 03/07/2023 9:30 AM COMPUTING MACHINE OPERATOR 03/07/2023 9:33 AM COMPUTING MACHINE OPERATOR Geno MORIN CHEMISTRY ORDERABLES [facility] [phone] [facility] [address] [place] [address] * (ABNORMAL) COMPREHENSIVE METABOLIC PANEL (03/07/2023 9:30 AM COMPUTING MACHINE OPERATOR) GLUCOSE 293(H) 65 - 99 mg/dL [employer] Martines Comment: For someone without known diabetes, a glucose value >125 mg/dL indicates that they may have diabetes and this should be confirmed with a follow-up test. ? Fasting reference interval BUN 16 7 - 25 mg/dL [employer] larissa Martines CREATININE 0.82 0.60 - 1.29 mg/dL [employer] larissa Martines GFR 110 > OR = 60 mL/min/1. 73m2 [employer] larissa Martines BUN/CREAT RATIO SEE NOTE: 6 - 22 (calc) [employer]anna Martines Comment: ?? Not Reported: BUN and Creatinine are within ?? reference range. ? SODIUM 133(L) 135 - 146 mmol/L [employer] larissa Martines POTASSIUM 5.0 3.5 - 5.3 mmol/L [employer] larissa Martines CHLORIDE 99 98 - 110 mmol/L [employer] larissa Martines CO2 25 20 - 32 mmol/L [employer] larissa Martines CALCIUM 10.0 8.6 - 10.3 mg/dL [employer] larissa Martines TOTAL PROTEIN 7.0 6.1 - 8.1 g/dL [employer] ALBUMIN 4.2 3.6 - 5.1 g/dL [employer] larissa Martines GLOBULIN 2.8 1.9 - 3.7 g/dL (calc) [facility] [employer] PublishingTamanna Martines ALBUMIN/GLOBULIN RATIO 1.5 1.0 - 2.5 (calc) [employer] Mart[facility] BILIRUBIN TOTAL 0.4 0.2 - 1.2 mg/dL [employer] larissa Conrad ALKALINE PHOSPHATASE 74 36 - 130 U/L [facility] larissa Conrad AST 14 10 - 40 U/L [facility] ALT 34 9 - 46 U/L [facility] Comment: Test Performed at: [facility] [address] [place], [place] ??[address] Sangita Boothe Blood 03/07/2023 9:30 AM COMPUTING MACHINE OPERATOR 03/07/2023 9:33 AM COMPUTING MACHINE OPERATOR Geno MORIN CHEMISTRY ORDERABLES [facility] [phone] [place] [address] [place] [address] * CBC WITH DIFFERENTIAL (03/07/2023 9:30 AM COMPUTING MACHINE OPERATOR) WBC 8.0 3.8 - 10.8 Thousand/u L [facility] larissa Martines RBC 5.26 4.20 - 5.80 Million/uL [facility] larissa Conrad HEMOGLOBIN 15.7 13.2 - [...] Diagnostics-S t Conrad Comment: Test Performed at: [facility] [address] [place] ??[address] Sangita Boothe Blood 03/07/2023 9:30 AM COMPUTING MACHINE OPERATOR 03/07/2023 9:33 AM COMPUTING MACHINE OPERATOR Geno MORIN HEMATOLOGY ORDERABLE S [facility] [phone] [facility] [address] [place] [address] documented in this encounter Visit Diagnoses Diagnosis Chronic diarrhea- Primary Diarrhea Acute bilateral thoracic back pain Encounter for screening colonoscopy Special screening for malignant neoplasms, colon Need for influenza vaccination Need for prophylactic vaccination and inoculation against influenza documented in this encounter Additional Health Concerns Assessment Noted Time PHQ-9 Depression Total Score: 1 03/07/20 23 8:22 AM COMPUTING MACHINE OPERATOR documented as of this encounter Care Teams Slp Relationship Specialty Start Date End Date Mckayla Mejia DO [address] [place] [phone] PCP - General Internal Medicine 03/07/23 documented as of this encounter
--- OUTSIDE RECORDS SUMMARY | 2024-04-08 13:53 | XMS_ITS | Encounter Summary ---
Author Organization [facility] Address [address] [place] [address] Care Team Providers Care International Trade Specialist Name Role Phone Mckayla Mejai DO Primary Care Provider [phone] Encounter Details Date Type Department Care Team [...] Total Score: 1 03/07/20 23 8:22 AM UTILITY SUPERVISOR BOAT AND PLANT documented as of this encounter Care Teams International Trade Specialist Relationship Specialty Start Date End Date Mckayla Mejia DO [address] [place] [phone] PCP - General Internal Medicine 03/07/23 documented as of this encounter
--- OUTSIDE RECORDS SUMMARY | 2024-04-08 13:53 | XMS_ITS | Encounter Summary ---
Author Organization [facility] Address [address] [place] [address] Care Team Providers Care Sonographer Name Role Phone Mckayla Mejia DO Primary Care Provider [phone] [phone] Encounter Details Date Type Department Care Team [...] Total Score: 1 03/07/20 23 8:22 AM SALVAGE MACHINE OPERATOR documented as of this encounter Care Teams Sonographer Relationship Specialty Start Date End Date Mckayla Mejia DO [address] [place] [phone] PCP - General Internal Medicine 03/07/23 documented as of this encounter
--- OUTSIDE RECORDS SUMMARY | 2024-04-08 13:53 | XMS_ITS | Clinical Summary ---
Author Organization [facility] Address [address] [place] [address] Care Team Providers Care Art Editor Name Role Phone Unknown, Notinfile Primary Care [...] on file Legal Sex Male 9:12 PM REAL ESTATE COORDINATOR Gender Identity Not on file Sexual Orientation [...] age to complete this topic Care Teams Art Editor Relationship Specialty Start Date End Date Unknown, Notinfile PCP - General 09/01/23
--- OUTSIDE RECORDS SUMMARY | 2024-04-08 13:53 | XMS_ITS | Clinical Summary ---
Author Organization [employer] [facility] [address] Address [address] [place] [address] Care Team Providers Care National Park Ranger Name Role Phone Mckayla Mejia Primary Care Provider +1 [phone] Allergies No known active allergies Medications Medication [...] Comments Blood Pressure 120/84 03/07/2023 8:45 AM MASH PROCESSING OPERATOR Pulse 79 03/07/2023 8:16 AM MASH PROCESSING OPERATOR Temperature - - Respiratory Rate - - Oxygen Saturation 98% 03/07/2023 8:16 AM MASH PROCESSING OPERATOR Inhaled Oxygen Concentration - - Weight 117.8 kg (259 lb 12.8 oz) 03/07/2023 8:16 AM MASH PROCESSING OPERATOR Height - - Body Mass Index [...] age to complete this topic Care Teams National Park Ranger Relationship Specialty Start Date End Date Mckayla Mejia DO [address] [place] [address] PCP - General Internal Medicine 03/07/23
--- OUTSIDE RECORDS SUMMARY | 2024-04-08 13:53 | XMS_ITS | Encounter Summary ---
Author Organization [facility] Address [address] [place] [address] Care Team Providers Care Ekg Monitor Name Role Phone Mckayla Mejia DO Primary Care Provider +1 [phone] Encounter Details Date Type Department Care Team [...] Total Score: 1 03/07/20 23 8:22 AM BOND BROKER documented as of this encounter Care Teams Ekg Monitor Relationship Specialty Start Date End Date Mckayla Mejia DO [address] [place] [phone] PCP - General Internal Medicine 03/07/23 documented as of this encounter
--- OUTSIDE RECORDS SUMMARY | 2024-04-08 13:53 | XMS_ITS | Encounter Summary ---
Author Organization [facility] Address [address] [place] [address] Care Team Providers Care Balloon Dipper Name Role Phone Mckayla Mejia DO Primary Care Provider +1 [phone] Encounter Details Date Type Department Care Team [...] Total Score: 1 03/07/20 23 8:22 AM LOCK MASTER documented as of this encounter Care Teams Balloon Dipper Relationship Specialty Start Date End Date Mckayla Mejia DO [address] [place] [phone] PCP - General Internal Medicine 03/07/23 documented as of this encounter
--- OUTSIDE RECORDS SUMMARY | 2024-04-08 13:53 | XMS_ITS | Encounter Summary ---
Author Organization [facility] Address [address] [place] [address] Care Team Providers Care J2Ee Software Engineer Name Role Phone Mckayla Mejia DO Primary Care Provider [phone] [phone] Encounter Details Date Type Department Care Team (Late st Contact Info) Description 03/08/[address] [facility] Internal Medicine - [facility] [address] [place] [address] Geno Jin PA [address] [facility] [address] [place] [address] Hyperglycemia (Primary Dx) Social History [...] Comments HEMOGLOBIN A1C Routine 03/07/2023 9:30 AM COLORIST FORMULATOR Hyperglycemia documented in this encounter Results * (ABNORMAL) HEMOGLOBIN A1C (03/07/2023 9:30 AM COLORIST FORMULATOR) HEMOGLOBIN A1C 10.9(H) <5.7 % of total [...] ?? ESTIMATED AVERAGE GLUCOSE (MG/DL) 266 mg/dL [employer] [facility] larissa Martines ESTIMATED AVERAGE GLUCOSE (MMOL/L) 14.7 mmol/L i[facility] Conrad Comment: Test Performed at: [facility] [address] [place] ??[address] YueAarti Boothe Blood 03/07/2023 9:30 AM COLORIST FORMULATOR 03/08/2023 6:53 PM COLORIST FORMULATOR Geno MORIN CHEMISTRY ORDERABLES [facility] [phone] [facility] [place] [address] [place] [address] documented in this encounter Visit Diagnoses Diagnosis Hyperglycemia- Primary Other abnormal glucose documented in this encounter Additional Health Concerns Assessment Noted Time PHQ-9 Depression Total Score: 1 03/07/20 23 8:22 AM COLORIST FORMULATOR documented as of this encounter Care Teams J2Ee Software Engineer Relationship Specialty Start Date End Date Mckayla Mejia DO [address] [place] [phone] PCP - General Internal Medicine 03/07/23 documented as of this encounter
--- OUTSIDE RECORDS SUMMARY | 2024-04-08 13:53 | XMS_ITS | Encounter Summary ---
Author Organization [facility] Address [address] [place] [address] Care Team Providers Care Warning Analyst Name Role Phone Mckayla Mejia DO Primary Care Provider [phone] [phone] Reason for Visit * Reason Onset Date Comments Results 03/13/2023 Encounter Details Date Type Department Care Team (Late st Contact Info) Description 03/13/2023 Telephone [facility] Internal Medicine - [place] [address] [place] [address] Mckayla Mejia DO [address] [place] [address] Results Social History Tobacco Use Types [...] - Rosana Lawler - 03/19/2023 4:57 PM CAVING GUIDE Patient was contacted and informed of results. Patient stated his understanding and will call as needed. NG GUIDE * Telephone Encounter - Rosana Lawler - 03/13/2023 2:19 PM CAVING GUIDE LM for patient to call back regarding results NG GUIDE * Telephone Encounter - Rosana Lawler - 03/13/2023 8:07 AM CAVING GUIDE LM for patient to call back regarding lab results. ----- Message from PATIENCE Hanks sent at 03/13/2023 7:52 AM CAVING GUIDE ----- Please let patient know all the stool cultures were negative for any infections. I recommended he continue with the colonoscopy. NG GUIDE documented in this encounter Plan of Treatment Not on file documented as of this encounter Visit Diagnoses Not on filedocumented in this encounter Additional Health Concerns Assessment Noted Time PHQ-9 Depression Total Score: 1 03/07/20 23 8:22 AM CAVING GUIDE documented as of this encounter Care Teams Warning Analyst Relationship Specialty Start Date End Date Mckayla Mejia DO [address] [place] [phone] PCP - General Internal Medicine 03/07/23 documented as of this encounter
--- OUTSIDE RECORDS SUMMARY | 2024-04-08 13:53 | XMS_ITS | Encounter Summary ---
Author Organization [facility] Address [address] [place] [address] Care Team Providers Care Knitting Machine Tender Name Role Phone Mckayla Mejia DO Primary Care Provider [phone] [phone] Encounter Details Date Type Department Care Team (Late st Contact Info) Description 03/07/2023 Abstract [facility] Internal Medicine - [facility] [address] [place] [address] Geno Jin PA [address] [facility] [address] [place] [address] Social History Tobacco Use Types Packs/Day [...] Total Score: 1 03/07/20 23 8:22 AM MIDDLE SCHOOL GUIDANCE COUNSELOR documented as of this encounter Care Teams Knitting Machine Tender Relationship Specialty Start Date End Date Mckayla Mejia DO [address] [place] [address] PCP - General Internal Medicine 03/07/23 documented as of this encounter
--- OUTSIDE RECORDS SUMMARY | 2024-04-08 13:53 | XMS_ITS | Encounter Summary ---
Author Organization [facility] Healthcare Address [address] [place] [address] Care Team Providers Care Hook Loader Name Role Phone Unknown, Notinfile Primary Care Provider Unavail able Reason for Referral * Consultation (Routine) - Closed Specialty Diagnoses / Procedures Referred By Polo dias Referred To Contact Internal Medicine Diagnoses Elevated glucose Grace Buchanan MD [address] [place] [address] Phone: tel: fax: [facility] [address] 12th [place] [address] [place] [address] Phone: tel: fax: Referral ID Status Reason Start Date Expiration Date V isits Requested Visits Authorized [id number] Closed Specialty Services Required 09/01/2023 09/30/2024 1 1 Question Answer Please select the performing region: [facility] (All Locations) [[id number]] Please select the performing department: [facility] ED CAM 12B [[id number]] # of visits: 1 Reason for Visit * Reason Comments Food Bolus Encounter Details Date Type Department Care Team (Late st Contact Info) Description 09/01/2023 3:32 PM CDT - 09/02/2023 12:17 AM CDT Emergency [facility] Emergency Department [address] [place] [address] Rosy Krishnamurthy MD [address] [place] [address] Phill Cancino MD [address] [place] [address] Pill esophagitis (Primary Dx); Cannabinoid hyperemesis syndrome; [...] on file Legal 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 Your lab workup was concerning for high blood sugar level. We strongly recommend that you follow up with a primary care provider for prediabetes/possible diabetes. We have referred you to primary care here, but if you prefer, you can establish care at any of the clinics listed below: [facility] (3) [facility]- [address] [phone] (M, , Th, F 8-5; W 8-8) [facility]- [address] [phone] (M-W, F 8-5; Th 8-8) [facility]- [address] [phone] (, , F 8-5; W 8-8) Min $20/visit w/o insurance [facility]. (4) Main Number [phone] [facility]- [address] [facility]- [address] [facility][Note 2]- [address] [facility]- [address] [facility] (M, , , F 830-530; W 830-7) (Sa 9-1 @ [facility]) Min $20/visit w/o insurance Gynecologic/Reproductive Health (4) [facility]- [address] [phone] (M-Sa) [facility]- [address] [facility] [phone] (M-Sa) [facility]- [address] [phone] (M 9-2;Tu 10-6; W 9-3;Th 10-4; Sa 8-12) [facility]- [address]; *Ages 13-24* [phone] (M-F 1p-5p) [facility] (Armenian-speaking) [address] (M-F 9-5, Sa 9-2, [place] 1p-5p) $25/visit w/o insurance [facility] (3) [facility]- [address] [phone] (M, W-F 8-530; 8-830) [facility]- [address] [phone] (M, , Th, F 8-530; W 8-830) [facility]- [address] [phone] (M-W, F 8-530; 11-8) Min $25/visit w/o insurance [facility] (2) [place]- [address] [phone] (M, W, F 8-5; , 8-8; Sa 8-1) [facility]- [address] [phone] (M, W-F 830-5; 830-7; Sa 9-1) Min $20/visit w/o insurance [facility] (3) [facility]- [address] [phone] (M-W, F 8-5; 8-6) [facility]- [address] [phone] (M, , , F 8-5; W 8-6) [facility]- [address] [phone] (M, W-F 8-5; 8-6) [facility] ([email or web address]) (~40 centers) [address] [place] [address] [place], [place] [phone] (M-F830-5; Quick Care M-F 5p-830p, Sa 9-1230) [facility]- [address] [phone] (M-F 830-5;Late Hours M,W,F 6p-10p) [facility]- [address] [place], [place] [phone] (M-F 830-5) A cardiac rule out was [...] RN - 09/01/2023 3:32 PM CDT Bed: [facility] Expected date: Expected time: Means of arrival: [...] ORDERABLES - DEVIC E Final Result [facility] [address] [facility] [place] [address] * (ABNORMAL) POCT glucose (09/01/2023 7:58 PM CDT) Glucose, POC 279(H) 70 - 199 mg/dL Blood 09/01/2023 7:58 PM CDT 09/01/2023 7:58 PM CDT us Rosy Krishnamurthy MD LAB POCT ORDERABLES - DEVIC E Final Result Performing Organization Address [facility] Co de Phone Number [facility] [place] [address] * (ABNORMAL) POCT ketone, blood (09/01/2023 7:33 PM CDT) Ketones, Blood, POC 1.7(H) 0.0 - 0.5 mmol/L Blood 09/01/2023 7:33 PM CDT 09/01/2023 7:33 PM CDT us Rosy Krishnamurthy MD LAB POCT ORDERABLES - DEVIC E Final Result Performing Organization Address [facility] Co de Phone Number [facility] [place] [address] * (ABNORMAL) Beta-hydroxybutyrate (09/01/2023 7:25 PM CDT) Beta-Hydroxybut yrate 1.4(H) 0.0 - 0.5 mmol/L Blood 09/01/2023 7:25 PM CDT 09/01/2023 7:29 PM CDT Kip Bishop MD LAB BLOOD ORDERABLES Fi nal Result Performing Organization Address [facility] Co de Phone Number [facility] [place] [address] * XR Chest 1 View (09/01/2023 4:14 [...] 12-LEAD (09/01/2023 3:49 PM CDT) Narrative [facility] - 09/01/2023 3:49 PM CDT Regino Kirkland [...] ORDERABLES Final R esult Performing Organization Address [facility] Co de Phone Number [facility] * Lipase (09/01/2023 3:45 PM CDT) Lipase 32 10 - 99 Units/L Blood 09/01/2023 3:45 PM CDT 09/01/2023 3:58 PM CDT us Rosy Krishnamurthy MD LAB BLOOD ORDERABLES Final Result Performing Organization Address [facility] Co de Phone Number [facility] [address] [facility] Department [place] [address] * eGFR (09/01/2023 3:45 PM CDT) eGFR [...] Bishop MD LAB BLOOD ORDERABLES nal Result [facility] [address] [facility] Department [place] [address] * (ABNORMAL) Differential, auto (09/01/2023 3:45 PM CDT) Neutrophil abs 8.8(H) 1.5 - 6.5 K/cumm Imm gran abs 0.1 0.0 - 0.1 K/cumm [facility] Lymphocyte abs 1.5 0.8 - 3.3 K/cumm [facility] Monocyte abs 0.4 0.2 - 0.8 K/cumm [facility] Eosinophil abs 0.1 0.0 - 0.5 K/cumm [facility] Basophil abs 0.0 0.0 - 0.1 K/cumm [facility] Neutrophil pct 81.1 % [facility] Comment: Interpretive Data Percent cell count reference ranges are not reported, since discordance with absolute values may lead to misinterpretation of CBC data. Current Interpretive Data was last revised on 2017. Imm gran pct 0.6 % [facility] Comment: Interpretive Data Percent cell count reference ranges are not reported, since discordance with absolute values may lead to misinterpretation of CBC data. Current Interpretive Data was last revised on 2017. Lymphocyte pct 13.8 % [facility] Comment: Interpretive Data Percent cell count reference ranges are not reported, since discordance with absolute values may lead to misinterpretation of CBC data. Current Interpretive Data was last revised on 2017. Monocyte pct 3.5 % [facility] Comment: Interpretive Data Percent cell count reference ranges are not reported, since discordance with absolute values may lead to misinterpretation of CBC data. Current Interpretive Data was last revised on 2017. Eosinophil pct 0.6 % [facility] Comment: Interpretive Data Percent cell count reference ranges are not reported, since discordance with absolute values may lead to misinterpretation of CBC data. Current Interpretive Data was last revised on 2017. Basophil pct 0.4 % [facility] Comment: Interpretive Data Percent cell count reference ranges are not reported, since discordance with absolute values may lead to misinterpretation of CBC data. Current Interpretive Data was last revised on 2017. Blood 09/01/2023 3:45 PM CDT 09/01/2023 3:57 PM CDT us Kip Bishop MD LAB BLOOD ORDERABLES Fi nal Result [facility] [address] [facility] Department [place] [address] * Troponin I high-sensitivity series (baseline, 2hr, [...] MD LAB BLOOD ORDERABLES Fi nal Result [facility] [address] [facility] Department [place] [address] * (ABNORMAL) Comprehensive metabolic panel (09/01/2023 3:45 PM CDT) Sodium 135 135 - 145 mmol/L Potassium, pl 4.0 3.3 - 4.9 mmol/L [facility] Chloride 97 97 - 110 mmol/L [facility] CO2 22 22 - 32 mmol/L [facility] Anion gap 16(H) 2 - 15 mmol/L [facility] BUN 14 6 - 25 mg/dL [facility] Creatinine 0.81 0.80 - 1.30 mg/dL [facility] Glucose 328(H) 70 - 199 mg/dL [facility] Comment: Interpretive Data Fasting glucose >/= [...] 2022. Calcium 10.1 8.5 - 10.3 mg/dL [facility] Bilirubin, total 0.4 0.1 - 1.2 mg/dL [facility] Protein, pl 8.2 6.5 - 8.5 g/dL [facility] Albumin 4.8 3.5 - 5.0 g/dL [facility] Alk phos 99 40 - 130 Units/L [facility] ALT 46 7 - 55 Units/L [facility] AST 29 10 - 50 Units/L [facility] Blood 09/01/2023 3:45 PM CDT 09/01/2023 3:58 PM CDT Kip Bishop MD LAB BLOOD ORDERABLES Fi nal Result Performing Organization Address [facility] Co de Phone Number [facility] Department [place] [address] * (ABNORMAL) CBC with auto differential (09/01/2023 3:45 PM CDT) [facility] WBC 10.8(H) 3.8 - 9.9 K/cumm Hgb 16.0 13.0 - 17.5 g/dL [facility] Hct 45.1 38.9 - 50.3 % [facility] Plt 376 150 - 400 K/cumm [facility] MPV 10.0 9.1 - 12.3 fL [facility] RBC 5.39 4.30 - 5.80 M/cumm [facility] MCV 83.7 81.3 - 96.4 fL [facility] MCH 29.7 27.1 - 33.3 pg [facility] MCHC 35.5 32.3 - 35.7 g/dL [facility] RDW CV 12.5 11.1 - 14.9 % [facility] RDW SD 37.8 35.7 - 48.1 fL [facility] NRBC abs 0.00 0.00 - 0.01 K/cumm [facility] Blood 09/01/2023 3:45 PM CDT 09/01/2023 3:57 PM CDT Kip Bishop MD LAB BLOOD ORDERABLES Fi nal Result Performing Organization Address [facility] Co de Phone Number [facility] Department [place] [address] documented in this encounter Visit Diagnoses Diagnosis [...] intravenous, Administer over 5 Minutes, Once, On [place] 09/01/23 at 1710, For 1 dose Given [...] 1,000 mL 1,000 mL, intravenous, Once, On [place] 09/01/23 at 1539, For 1 dose New Bag 09/01/2023 3:48 PM CDT 1,000 mL Lactated Ringer's (LR) bolus 1,000 mL 1,000 mL, intravenous, Once, On [place] 09/01/23 at 2146, For 1 dose New Bag 09/01/2023 10:16 PM CDT 1,000 mL ondansetron (ZOFRAN) injection 8 mg 8 mg, intravenous, Administer over 2 Minutes, Once, On [place] 09/01/23 at 1539, For 1 dose, Indications: [...] 09/01/2023 documented in this encounter Care Teams Hook Loader Relationship Specialty Start Date End Date Unknown, Notinfile PCP - General 09/01/23 documented as of this encounter
--- OUTSIDE RECORDS SUMMARY | 2024-04-08 13:53 | XMS_ITS | Encounter Summary ---
Author Organization [facility] Address [address] [place] [address] Care Team Providers Care Pump Erector Helper Name Role Phone Mckayla Mejia DO Primary Care Provider [phone] [phone] Reason for Visit * Reason Onset Date Comments Medication Review 03/11/2023 Encounter Details Date Type Department Care Team (Late st Contact Info) Description 03/11/2023 Telephone [facility] Internal Medicine - [facility] [address] [facility] [place] [address] Geno Jin PA [address] [facility] [address] [place] [address] Medication Review Social History Tobacco Use [...] - 03/11/2023 1:18 PM CST Sent in [employer]. AL SALES DIRECTOR * Telephone Encounter - Natalia Arenas RMA - 03/11/2023 1:07 PM CST Images from the original note were not included. AL SALES DIRECTOR documented in this encounter Plan of Treatment Not on file documented as of this encounter Visit Diagnoses Not on filedocumented in this encounter Additional Health Concerns Assessment Noted Time PHQ-9 Depression Total Score: 1 03/07/20 23 8:22 AM GLOBAL SALES DIRECTOR documented as of this encounter Care Teams Pump Erector Helper Relationship Specialty Start Date End Date Mckayla Mejia DO [address] [place] [id number] PCP - General Internal Medicine 03/07/23 documented as of this encounter
--- OUTSIDE RECORDS SUMMARY | 2024-04-08 13:53 | XMS_ITS | Encounter Summary ---
Author Organization [facility] Address [address] [place] [address] Care Team Providers Care Administrative Support Manager Name Role Phone Mckayla Mejia DO Primary Care Provider [phone] [phone] Encounter Details Date Type Department Care Team [...] Total Score: 1 03/07/20 23 8:22 AM BROOMMAKER documented as of this encounter Care Teams Administrative Support Manager Relationship Specialty Start Date End Date Mckayla Mjeia DO [address] [place] [id number] PCP - General Internal Medicine 03/07/23 documented as of this encounter
--- OUTSIDE RECORDS SUMMARY | 2024-04-08 13:53 | XMS_ITS | Encounter Summary ---
Author Organization [facility] Address [address] [place] [address] Care Team Providers Care Pump Press Operator Name Role Phone Mckayla Mejia DO Primary Care Provider [phone] [phone] Encounter Details Date Type Department Care Team [...] Total Score: 1 03/07/20 23 8:22 AM HANDLE ROUNDER OPERATOR documented as of this encounter Care Teams Pump Press Operator Relationship Specialty Start Date End Date Mckayla Mejia DO [address] [place] [id number] PCP - General Internal Medicine 03/07/23 documented as of this encounter
--- OUTSIDE RECORDS SUMMARY | 2024-04-08 13:53 | XMS_ITS | Encounter Summary ---
Author Organization [facility] Address [address] [place] [address] Care Team Providers Care Overhead Worker Name Role Phone Mckayla Mejia DO Primary Care Provider [phone] [phone] Encounter Details Date Type Department Care Team (Late st Contact Info) Description 03/15/2023 Abstract [facility] Internal Medicine - [employer] [address] [place] [address] Mckayla Mejia DO [address] [...] Total Score: 1 03/07/20 23 8:22 AM CREDIT CARD CONTROL CLERK documented as of this encounter Care Teams Overhead Worker Relationship Specialty Start Date End Date Mckayla Mejia DO [address] [place] [address] PCP - General Internal Medicine 03/07/23 documented as of this encounter
--- OUTSIDE RECORDS SUMMARY | 2024-04-08 13:53 | XMS_ITS | Encounter Summary ---
Author Organization [facility] Address [address] [place] [address] Care Team Providers Care Yarn Wrapper Name Role Phone Mckayla Mejia DO Primary Care Provider [phone] [phone] Encounter Details Date Type Department Care Team (Late st Contact Info) Description 03/15/2023 Abstract [facility] Internal Medicine - [facility] [place] [address] [place] [address] Mckayla [...] Total Score: 1 03/07/20 23 8:22 AM HEEL TOP LIFT SPLITTER documented as of this encounter Care Teams Yarn Wrapper Relationship Specialty Start Date End Date Mckayla Mejia DO [address] [place] [address] PCP - General Internal Medicine 03/07/23 documented as of this encounter
--- OUTSIDE RECORDS SUMMARY | 2024-04-08 13:53 | XMS_ITS | Referral Summary ---
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
--- OUTSIDE RECORDS SUMMARY | 2024-04-08 13:53 | XMS_ITS | Encounter Summary ---
Author Organization [facility] Care Team Providers Care Consulting Systems Engineer Name Role Phone Unavailable Primary Care Provider Unavailabl e Encounter Details Date Type Department Care Team (Latest Contact Info) Description 01/18/2015 10:51 PM CDT - 01/19/2015 3:31 AM CDT Hospital Encounter [facility] Kane Mukherjee MD [address] [place] [address] Acute bronchitis; Viral infection in conditions classified elsewhere and of unspecified site; Asthma Social History Tobacco Use Types Packs/Day Years Used Date Smoking Tobacco: Never Assessed Sex and Gender Information Value Date Recorded Sex Assigned at Not on file Legal Sex Male 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 ACC# ??Date Time ??Exam [id number] Jan 19, 2015 00:25:00 [id number] Chest 2 views Frontl & Lat EXAMINATION: [...] BURGESS M.D. on Jan 19 2015 ??9:51A [id number] Procedure Note Provider, Hanna, - 09/28/2016 SOPHY BURGESS M.D. TEOFILO UREÑA M.D. FINAL REPORT The radiology attending physician has personally reviewed this study, and has reviewed and/or edited this written report and agrees with it. ACC# Date Time Exam [id number] Jan 19, 2015 00:25:00 [id number] Chest 2 views Frontl & Lat EXAMINATION: Chest, 2 views HISTORY: Cough IMPRESSION: There are no comparisons available. There is mild bibasilar atelectasis. No pneumothorax or pleural effusion. Heart size and mediastinal contours are normal. Requested By: Dictated By: TEOFILO UREÑA M.D. on Jan 19 2015 8:54A This document has been electronically signed by: SOPHY BURGESS M.D. on Jan 19 2015 9:51A [id number] us Historical Provider MD [facility] XR PROCEDURES Final R esult documented in this encounter Visit Diagnoses Diagnosis Acute bronchitis Viral infection in conditions classified elsewhere and of unspecified site Asthma Unspecified asthma documented in this encounter
--- OUTSIDE RECORDS SUMMARY | 2024-04-08 13:53 | XMS_ITS | Encounter Summary ---
Author Organization [facility] Address [address] [place] [address] Care Team Providers Care Fermentation Operator Name Role Phone Mckayla Mejia DO Primary Care Provider [phone] [phone] Encounter Details Date Type Department Care Team (Late st Contact Info) Description 03/11/2023 Orders Only [facility] Internal Medicine - [facility] [address] [place] [address] Geno Jin PA [address] [facility] [address] [place] [address] Type 2 diabetes mellitus without [...] C. diff 03/12/2023 03/11/2023 03/12/2023 5:42 PM MACHINE FITTER Assessment Noted Time PHQ-9 Depression Total Score: 1 03/07/20 23 8:22 AM MACHINE FITTER documented as of this encounter Care Teams Fermentation Operator Relationship Specialty Start Date End Date Mckayla Mejia DO [address] [place] [address] PCP - General Internal Medicine 03/07/23 documented as of this encounter
== END 2024-04-07 18:11 | disposition home or self-care (01) ==
LOC: ANHED 13:46 → ANH3MEDSUR 04-06 14:28 → ANHIMU 04-08 07:29
PROVIDERS: Physician Assistant; Admitting Provider Internal Medicine; Emergency Provider Emergency Medicine; Visit Provider Hospitalist
DX: E11.65 Type 2 diabetes mellitus with hyperglycemia (principal); E86.0 Dehydration; I10 Essential (primary) hypertension; E66.01 Morbid (severe) obesity due to excess calories; Z68.41 Body mass index [BMI] 40.0-44.9, adult; K76.0 Fatty (change of) liver, not elsewhere classified; D18.09 Hemangioma of other sites; Z83.3 Family history of diabetes mellitus; Z87.891 Personal history of nicotine dependence
CPT/HCPCS: 36415; 74177; 74183; 80048; 80053; 81001; 82010; 82803; 82948; 83036; 83690; 83735; 85025; 96361; 96365; 96366; 96372; 96374; 96375; 99285; A9270; A9577; G0378; G0379; J0780; J1650; J1741; J1815; J2270; J2405; J2470; J7030; J7120; Q9967

== ENCOUNTER 2024-08-20 15:41 | Inpatient (IN) | payer BC, SELFPAY ==
--- NOTE | ~2024-08-20 | CT_ITS ---
CLINICAL INDICATION: Nausea vomiting and abdominal pain COMPARISON: 04/04/2024. TECHNIQUE: Multiple contiguous axial images of the abdomen and pelvis were performed following the ad ministration of with 100 mL Omnipaque-350 intravenous contrast The dose-length product (DLP) was 1399.01 mGy-cm. Automated exposure control and iterative reconstruction technique were employed. FINDINGS/OBSERVATIONS: Visualized lower thorax: The bilateral lung bases are clear. The heart is of normal size, without pericardial effusion. Small hiatal hernia is present. Liver: The liver demonstrates homogeneously decreased enhancement (consistent with fatty infiltration) and i s enlarged measuring 23 cm in longitudinal dimension. Gallbladder and biliary system: The gallbladder is only minimally distended, and otherwise unremarkable. Pancreas: The pancreas enhances homogeneously without ductal dilatation. Spleen: The spleen enhances homogeneously and is not enlarged. Kidneys: The bilateral kidneys enhance symmetrically without hydronephrosis or renal calculi. Adrenal glands: Unremarkable. Gastrointestinal tract: Trace mural thickening and edema within the entirety of the colon with surrounding inflammatory ford e, findings suggesting a pancolitis. Appendix: The air-filled appendix is of normal caliber (axial series, images 133 through 144) Vasculature: Unremarkable. Lymph nodes: No pathologically enlarged or morphologically suspicious lymph nodes within the retroperitoneum or at the root of the mesentery. Pelvic structures: The bladder is only minimally distended, and otherwise unremarkable. The prostate gland is not enlarged. Body wall and musculoskeletal: Small fat-containing umbilical hernia. No significant degenerative disease within the lower thoracic or lumbosacral spine. IMPRESSION: Findings suggesting a murphy colitis, as detailed above. Reviewed, dictated and finalized at location A.
--- NOTE | ~2024-08-20 | US_ITS ---
Limited ABDOMINAL ULTRASOUND (Doppler ultrasound interrogation techniques used as needed for this exa m.) Ordering provider: Nurys Blevins APRN History: . RUQ pain . Comparison: None. FINDINGS: PANCREAS: Not well visualized. PORTAL VEIN: Hepatopedal flow demonstrated. LIVER: Normal size and increased echotexture. Hypoechoic area is seen adjacent to the gallbladder whi ch is most likely focal fat sparing measuring 1.3 x 1 x 1 cm. No focal hepatic lesions or perihepatic fluid collections are identified. BILIARY DUCTS: No intra or extrahepatic biliary dilation. Common bile duct measures 2.4 mm in diamete r which is normal for patient's age. GALLBLADDER: Normal. No stones, sludge, gallbladder wall thickening or pericholecystic fluid. The wal l measures 2.1 mm. Negative sonographic Pearson's sign. FREE FLUID: None visualized within the upper abdomen. IMPRESSION: Fat infiltration. Focal area of decreased echogenicity most likely area of fat sparing. Follow-up adv ised. Otherwise, normal limited abdominal ultrasound. Reviewed, dictated and finalized at location A. IMPRESSION: Fat infiltration. Focal area of decreased echogenicity most likely area of fat sparing. Follow-up advised. Otherwise, normal limited abdominal ultrasound.
--- OUTSIDE RECORDS SUMMARY | 2024-08-20 15:51 | XMS_ITS | Clinical Summary ---
Author Organization [facility] al Address [address] [place] [address] Care Team Providers Care Photographer'S Model Name Role Phone Unknown, Notinfile Primary Care Provider Unavail able Allergies No known active allergies Medications ondansetron ODT (ZOFRAN-ODT) 4 mg disintegrating tablet Dissolve 1 tablet oral every 4 hours as needed for nausea or vomiting. 15 tablet Active Active Problems No known active problems Immunizations Immunization Administration Dates Next Due Influenza, Quadrivalent, Spl [...] on file Legal Sex Male 9:12 PM SALT LIFTER Gender Identity Not on file Sexual Orientation Not on file Obstetrics History Last Filed Vital Signs Vital Sign Reading Time Taken Comments Blood Pressure 127/98 09/01/2023 11:30 PM CDT Pulse 78 09/01/2023 11:31 PM CDT Temperature 36.6 C (97.8 F) 09/01/2023 3:23 PM CDT Respiratory Rate 16 09/01/2023 11:31 PM CDT [...] 5 season) 2023 07/13/2020, 06/21/2020 Influenza Vaccine (Season Ended) 2024 03/07/2023 Pneumococcal vaccine <65 Aged Out No longer eligible based on patient's age to complete this topic Care Teams Photographer'S Model Relationship Specialty Start Date End Date Unknown, Notinfile PCP - General 09/01/23
--- OUTSIDE RECORDS SUMMARY | 2024-08-20 15:51 | XMS_ITS | Referral Summary ---
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
--- OUTSIDE RECORDS SUMMARY | 2024-08-20 15:51 | XMS_ITS | Clinical Summary ---
Author Organization [employer] [facility] [address] [place] [address] Address [address] [place] [address] Care Team Providers Care Asphalt Tar And Gravel Roofer Name Role Phone Yogesh Mejiamax Gomezle Primary Care Provider [phone] Allergies No known active allergies Medications linaGLIPtin (TRADJENTA) 5 mg Tablet Take 1 Tablet (5 mg) by mouth daily. 90 Tablet 10/31/2023 Active Active Problems No known active problems Immunizations Immunization Administration Dates Next Due INFLUENZA VACCINE QUADRIVALENT [...] at Not on file Legal Sex Male 12:41 PM CDT Gender Identity Not on file Sexual Orientation Not on file Last Filed Vital Signs Vital Sign Reading Time Taken Comments Blood Pressure 120/84 03/07/2023 8:45 AM BOX OFFICE MANAGER Pulse 79 03/07/2023 8:16 AM BOX OFFICE MANAGER Temperature - - Respiratory Rate - - Oxygen Saturation 98% 03/07/2023 8:16 AM BOX OFFICE MANAGER Inhaled Oxygen Concentration - - Weight 117.8 kg (259 lb 12.8 oz) 03/07/2023 8:16 AM BOX OFFICE MANAGER Height - - Body Mass Index - - Plan of Treatment Health Maintenance Due Date Last Done Comments DTAP/TDAP/TD VACCINES (1 - Tdap) 1996 HEPATITIS B VACCINES (1 of 3 - 19+ 3-dose series) 06/21 COLORECTAL SCREENING 2022 Colorectal Cancer Screening 2022 FIT-DNA Q 3 years 2022 FIT/FOBT Q 1 year 2022 Flex Sig/CT Colonography Q 5 years 2022 INFLUENZA VACCINE (#1) 2023 03/07/2023 Preventative Visit- Commercial 04/22/2024 [place] [address] [facility] BLUE ACCESS CHOICE Care Teams Asphalt Tar And Gravel Roofer Relationship Specialty Start Date End Date Mckayla Mejia DO [address] [place] [id number] PCP - General Internal Medicine 03/07/23
[2024-08-20 16:02] VITALS: BP 146/94; PULSE 74; RESP 19; TEMP 36.7; O2SAT 98
--- NOTE | 2024-08-20 16:26 | ED.GENADULT ---
HPI - General Adult General Chief complaint: Nausea/Vomiting/Diarrhea Stated complaint: Vomiting-epigastric pain/burning Time Seen by Provider: 08/20/24 16:15 History of Present Illness HPI narrative: Patient is a 49-year-old gentleman presents emergency department chief complaint of abdominal pain nausea vomiting diarrhea patient states he started having diarrhea and then has bowel movements including wound states he is now not having bowel movements reports his abdomen is hurting reports that he had similar symptoms in the past and was treated with GI cocktail and got much better. Patient states that he has had no fever reports that he is diaphoretic Related Data Allergies Allergy/AdvReac Type Severity Reaction Status Date / Time No Known Allergies Allergy Verified 08/20/24 15:42 Review of Systems Review of Systems: A 10 system review of systems was completed on the patient and is negative except for what is stated in the HPI. Nursing and ancillary documentation was reviewed. [facility] Past Medical History Medical History Morbid obesity Type 2 diabetes mellitus Surgical History Surgical History No pertinent past surgical history Family History Family History Other Diabetes mellitus Social History Social History Social History: Surrogate medical decision maker: Marcelle Velez, mother. Code status: Full code. Smoking status: Former smoker Alcohol intake: never Substance use: current Substance use type: marijuana Do You Feel Safe in your Home?: Yes Lack of Transportation: No Lack of Food: Never True Current Housing: I Have Housing Concerned About Future Housing: No Difficulty Paying Gas/Electric Bills: No Difficulty Paying for Meds: No Currently Unemployed: No Education: Associate Degree Difficulty w/ Childcare or Family Care: No Additional living arrangements comments: Lives with family in [place]. 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 Spiritual care concerns: No Exam Narrative: GENERAL: Well-appearing, well-nourished, and in no acute distress. HEAD: Normocephalic, atraumatic. EYES: PERRLA and EOMI. ENT: Nares clear, no rhinorrhea or epistaxis. Mucous membranes moist. NECK: Supple. CHEST: Clear to auscultation. No respiratory distress. HEART: Regular rate and rhythm. No murmur heard. Normal peripheral pulses. ABDOMEN: Soft, nontender, nondistended, normal active bowel sounds. EXTREMITIES: Normal range of motion. No edema. SKIN: Warm, dry, no rash. NEURO: No focal deficits. Alert and oriented x3. PSYCH: Normal mood and affect. Course Vital Signs Vital signs: Vital Signs Temperature 36.7 C 08/20/24 16:02 Pulse Rate 74 08/20/24 16:02 Respiratory Rate 19 08/20/24 16:02 Blood Pressure 146/94 H 08/20/24 16:02 Pulse Oximetry 98 08/20/24 16:02 Oxygen Delivery Room Air 08/20/24 16:02 Temperature 36.7 C 08/20/24 16:02 Pulse Rate 82 08/20/24 18:38 Respiratory Rate 16 08/20/24 18:38 Blood Pressure 167/102 H 08/20/24 18:38 Pulse Oximetry 96 08/20/24 18:38 Oxygen Delivery Room Air 08/20/24 16:02 Medical Decision Making [facility] Narrative Medical decision making narrative: Differential diagnosis includes gastroenteritis, dehydration, bowel obstruction, hyperkalemia, DKA Patient had a CO2 of 17 and anion gap of 19 and a beta hydroxybutyrate of 2.37 the patient had a serum blood sugar of 360 The patient was started on fluid resuscitation and was started on insulin drip. The patient has not been on his medications for diabetes Vital Signs Vital Signs: Vital Signs Temperature 36.7 C 08/20/24 16:02 Pulse Rate 74 08/20/24 16:02 Respiratory Rate 19 08/20/24 16:02 Blood Pressure 146/94 H 08/20/24 16:02 Pulse Oximetry 98 08/20/24 16:02 Oxygen Delivery Room Air 08/20/24 16:02 Temperature 36.7 C 08/20/24 16:02 Pulse Rate 82 08/20/24 18:38 Respiratory Rate 16 08/20/24 18:38 Blood Pressure 167/102 H 08/20/24 18:38 Pulse Oximetry 96 08/20/24 18:38 Oxygen Delivery Room Air 08/20/24 16:02 Lab Data 08/20/24 16:26 05/01/25 16:26 Labs: Lab Results 08/20/24 08/20/24 08/20/24 Range/Units 16:25 16:26 17:55 WBC 12.7 H (4.5-10.0) K/mm3 RBC 5.71 (4.6-6.20) M/mm3 Hgb 16.8 (14.0-18.0) g/dL Hct 49.5 (42.0-52.0) % MCV 86.7 (80-100) fl MCH 29.4 (26-34) pg MCHC 33.9 (32-36) g/dl RDW 12.8 (11.5-14.5) % Plt Count 408 H (150-375) k/mm3 MPV 9.6 (7.4-10.4) fl Immature Gran % (Auto) 0.4 (0-0.5) % Neut % (Auto) 78.3 H (45.5-73.1) % Lymph % (Auto) 15.6 L (18.3-44.2) % [place] % (Auto) 5.3 (2.6-8.5) % Eos % (Auto) 0.2 (0-4.4) % Baso % (Auto) 0.2 (0.2-1.2) % Lymph # (Auto) 1.98 (0.9-3.2) K/mm3 [place] # (Auto) 0.7 H (0.1-0.6) K/mm3 Eos # (Auto) 0.0 (0-0.3) K/mm3 Baso # (Auto) 0.0 (0.0-0.1) K/mm3 Abs Immat Gran (auto) 0.05 H (0.00-0.031) K/mm3 Absolute Neuts (auto) 9.9 H (1.3-6.7) K/mm3 Absolute Nucleated RBC 0.000 (0.0-0.012) K/mm3 Nucleated RBC % 0.0 (0.0-0.2) % Sodium 136 L (137-145) mmol/L Potassium 4.0 (3.4-5.0) mmol/L Chloride 100 (98-107) mmol/L Carbon Dioxide 17 L (22-30) mmol/L Anion Gap 19 H (4-12) mmol/L BUN 15 D (9-20) mg/dL Creatinine 1.05 (0.7-1.3) mg/dL Estim Creat Clear Calc 90 ml/min Estimated GFR > 60 (59 - ) Glucose 360 H (65-110) mg/dL POC Capillary Glucose 295 H (65-105) mg/dl Hemoglobin A1c 10.0 H (<5.7) % Calcium 9.8 (8.4-10.2) mg/dL Phosphorus 2.8 (2.5-4.5) mg/dL Magnesium 2.0 (1.6-2.3) mg/dL Total Bilirubin 0.7 (0.2-1.3) mg/dL AST 26 (17-59) U/L ALT 40 (6-50) U/L Alkaline Phosphatase 110 (38-126) U/L Total Protein 8.0 (6.3-8.2) g/dL Albumin 4.9 (3.5-5.1) g/dL Lipase 87 (23-300) U/L Beta-Hydroxybutyrate/Acetoacetate 2.37 H (0.02-0.27) mmol/L Urine Color (Yellow) Urine Appearance (Clear) Urine pH (5.0-9.0) Ur Specific [place] (1.001-1.035) Urine Protein (Negative) mg/dL Urine Glucose (UA) (Negative) mg/dL Urine Ketones (Negative) mg/dL Ur Blood (Man) (Negative) Urine Nitrate (Negative) Urine Bilirubin (Negative) Urine Urobilinogen (<2.0) mg/dL Leukocyte Esterase Rfl (Negative) MAISHA/UL Urine RBC (0-2) /hpf Urine WBC (0-3) /hpf Ur Squamous Epith Cells (Few) /hpf Urine Bacteria /hpf Urine Casts 08/20/24 Range/Units 18:22 WBC (4.5-10.0) K/mm3 RBC (4.6-6.20) M/mm3 Hgb (14.0-18.0) g/dL Hct (42.0-52.0) % MCV (80-100) fl MCH (26-34) pg MCHC (32-36) g/dl RDW (11.5-14.5) % Plt Count (150-375) k/mm3 MPV (7.4-10.4) fl Immature Gran % (Auto) (0-0.5) % Neut % (Auto) (45.5-73.1) % Lymph % (Auto) (18.3-44.2) % [place] % (Auto) (2.6-8.5) % Eos % (Auto) (0-4.4) % Baso % (Auto) (0.2-1.2) % Lymph # (Auto) (0.9-3.2) K/mm3 [place] # (Auto) (0.1-0.6) K/mm3 Eos # (Auto) (0-0.3) K/mm3 Baso # (Auto) (0.0-0.1) K/mm3 Abs Immat Gran (auto) (0.00-0.031) K/mm3 Absolute Neuts (auto) (1.3-6.7) K/mm3 Absolute Nucleated RBC (0.0-0.012) K/mm3 Nucleated RBC % (0.0-0.2) % Sodium (137-145) mmol/L Potassium (3.4-5.0) mmol/L Chloride (98-107) mmol/L Carbon Dioxide (22-30) mmol/L Anion Gap (4-12) mmol/L BUN (9-20) mg/dL Creatinine (0.7-1.3) mg/dL Estim Creat Clear Calc ml/min Estimated GFR (59 - ) Glucose (65-110) mg/dL POC Capillary Glucose (65-105) mg/dl Hemoglobin A1c (<5.7) % Calcium (8.4-10.2) mg/dL Phosphorus (2.5-4.5) mg/dL Magnesium (1.6-2.3) mg/dL Total Bilirubin (0.2-1.3) mg/dL AST (17-59) U/L ALT (6-50) U/L Alkaline Phosphatase (38-126) U/L Total Protein (6.3-8.2) g/dL Albumin (3.5-5.1) g/dL Lipase (23-300) U/L Beta-Hydroxybutyrate/Acetoacetate (0.02-0.27) mmol/L Urine Color Yellow (Yellow) Urine Appearance Clear (Clear) Urine pH 5.5 (5.0-9.0) Ur Specific [place] 1.026 (1.001-1.035) Urine Protein 2+ H (Negative) mg/dL Urine Glucose (UA) 2+ H (Negative) mg/dL Urine Ketones 4+ H (Negative) mg/dL Ur Blood (Man) Negative (Negative) Urine Nitrate Negative (Negative) Urine Bilirubin Negative (Negative) Urine Urobilinogen 0.2 (<2.0) mg/dL Leukocyte Esterase Rfl Negative (Negative) MAISHA/UL Urine RBC 0-2 (0-2) /hpf Urine WBC 0-5 (0-3) /hpf Ur Squamous Epith Cells None seen (Few) /hpf Urine Bacteria None seen /hpf Urine Casts 0-2 ABG Data ABG results: 08/20/24 17:05 Puncture Site Right radial ABG pH 7.395 ABG pCO2 29.9 L ABG pO2 69.2 L ABG PO2/FiO2 Ratio 3.30 ABG HCO3 17.9 L ABG O2 Saturation 94.1 L ABG O2 Content 20.6 ABG Base Excess -5.5 A-a Gradient 44.7 Oxyhemoglobin 93.0 Total Hemoglobin 15.8 O2 Delivery Device Not Reportable O2 Liters/Min Not Reportable FiO2 21 Critical Care Time Critical Care Time Critical Care Time: Yes Total Critical Care Time: 35 Discharge Plan Discharge Clinical Impression: Diabetic ketoacidosis, Acute hyperglycemia, Acute dehydration, Nausea and vomiting, Colitis Patient Disposition: Still a Patient Condition: Stable Patient Language: Singaporean Prescriptions: No Action insulin aspart U-100 [Novolog U-100 Insulin aspart] 100 unit/mL Solution 3 - 6 unit subcut TIDWM Qty: 1 0RF Protocol: Insulin Corrective Moderate-Dose Condition: glucose < 70 mg/dl Dose/Route: Follow hypoglycemia orders Condition: glucose 70-200 mg/dl Dose/Route: No additional insulin Condition: glucose 201-250 mg/dl Dose/Route: 3 units sub-Q Condition: glucose 251-300 mg/dl Dose/Route: 4 units sub-Q Condition: glucose 301-350 mg/dl Dose/Route: 5 units sub-Q Condition: glucose 351-400 mg/dl Dose/Route: 6 units sub-Q Condition: glucose > 400 mg/dl Dose/Route: Call MD Protocol Text: *No Correction Dose at Bedtime* insulin glargine [Lantus U-100 Insulin] 100 unit/mL Solution 23 unit subcut HS Qty: 1 4RF lisinopril 20 mg Tablet 20 mg PO DAILY Qty: 30 1RF insulin aspart U-100 [Novolog U-100 Insulin aspart] 100 unit/mL Solution 10 unit subcut TIDWM Qty: 1 4RF (DME) blood-glucose meter [OneTouch Verio Flex meter] [facility] Qty: 1 0RF Rx Instructions: May substitute to in-stock meter and/or covered by insurance. Use As Directed (DME) OneTouch Verio test strips Strip Qty: 1 0RF Rx Instructions: May substitute to in-stock and/or covered by insurance strips. Use As Directed (DME) lancets [OneTouch Delica Plus Lancet] 30 gauge [facility] Qty: 1 0RF Rx Instructions: May substitute to in-stock and/or covered by insurance lancets. Use As Directed Follow-up/Referrals: PHYSICIAN,MARKETING PROFESSIONAL [Primary Care Provider] - Time of Disposition: 18:24
[2024-08-20 16:30] LABS: Basophils Percent Auto 0.2 % (0.2-1.2); Eosinophils Percent Auto 0.2 % (0-4.4); Hematocrit 49.5 % (42.0-52.0); Hemoglobin 16.8 g/dL (14.0-18.0); Immature Granulocyte Absolute 0.05 K/mm3 (0.00-0.031); Immature Granulocyte Percent A 0.4 % (0-0.5); Lymphocytes Absolute Auto 1.98 K/mm3 (0.9-3.2); Lymphocytes Percent Auto 15.6 % (18.3-44.2); Mean Corpuscular HGB Conc 33.9 g/dl (32-36); Mean Corpuscular Hemoglobin 29.4 pg (26-34); Mean Corpuscular Volume 86.7 fl (80-100); Mean Platelet Volume 9.6 fl (7.4-10.4); Monocytes Absolute Auto 0.7 K/mm3 (0.1-0.6); Monocytes Percent Auto 5.3 % (2.6-8.5); Neutrophils Absolute Auto 9.9 K/mm3 (1.3-6.7); Neutrophils Percent Auto 78.3 % (45.5-73.1); Platelet Count Result 408 k/mm3 (150-375); Red Blood Count 5.71 M/mm3 (4.6-6.20); Red Cell Distribution Width 12.8 % (11.5-14.5); White Blood Count 12.7 K/mm3 (4.5-10.0)
[2024-08-20] MEDS: SODIUM CHLORIDE 0.9% IV 1,000 ML 999 ML IV CONT ×2 (16:36→17:08)
[2024-08-20] MEDS: PANTOPRAZOLE SODIUM IV 40 MG VIAL IV PUSH (16:37)
[2024-08-20] MEDS: PROCHLORPERAZINE EDISYLATE 10 MG/2 ML VIAL IV PUSH (16:37)
[2024-08-20 16:41] LABS: Alanine Aminotransferase 40 U/L (6-50); Albumin Level 4.9 g/dL (3.5-5.1); Alkaline Phosphatase 110 U/L (38-126); Anion Gap 19 mmol/L (4-12); Aspartate Amino Transferase 26 U/L (17-59); Bilirubin,Total 0.7 mg/dL (0.2-1.3); Blood Urea Nitrogen 15 mg/dL (9-20); Calcium 9.8 mg/dL (8.4-10.2); Carbon Dioxide 17 mmol/L (22-30); Chloride 100 mmol/L (98-107); Estimated CRCL calculation 90 ml/min; Estimated Glomerular Filt Rate > 60; Glucose 360 mg/dL (65-110); Lipase 87 U/L (23-300); Sodium 136 mmol/L (137-145)
--- NOTE | 2024-08-20 17:09 | PC.NURSE ---
Pt provided with urinal for urine sample, states cannot give a sample at this time I have nothing to give
[2024-08-20 17:13] LABS: Alveolar/Arterial O2 Gradient 44.7 mmHg; Base Excess ABG -5.5 mEq/l (+/-2.0); Fractional Inspired Oxygen 21 %; HCO3 ABG 17.9 mEq/l (22.0-26.0); Oxygen Content ABG 20.6 %vol (16.0-22.0); Oxygen Saturation ABG 94.1 % (95.0-100.0); PCO2 ABG 29.9 mmHg (35.0-45.0); PO2 ABG 69.2 mmHg (80.0-100.0); Total Hemoglobin 15.8 g/dL (12.0-18.0); pH ABG 7.395 (7.350-7.450)
[2024-08-20 17:14] LABS: Modified Allen's Test Pass; Site Drawn RIGHT RADIAL
[2024-08-20 17:16] LABS: Beta-Hydroxybutyrate/Acetoacetate 2.37 mmol/L (0.02-0.27)
--- OUTSIDE RECORDS SUMMARY | 2024-08-20 17:34 | XMS_ITS | Referral Summary ---
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
--- OUTSIDE RECORDS SUMMARY | 2024-08-20 17:34 | XMS_ITS | Clinical Summary ---
Author Organization [employer] [facility] [address] [place] [address] Address [address] [place] [address] Care Team Providers Care Education Rn Name Role Phone Yogesh Mejiamax Gomezle Primary Care Provider [phone] [phone] Allergies No known active allergies Medications linaGLIPtin [...] Comments Blood Pressure 120/84 03/07/2023 8:45 AM DIRECT MAIL COORDINATOR Pulse 79 03/07/2023 8:16 AM DIRECT MAIL COORDINATOR Temperature - - Respiratory Rate - - Oxygen Saturation 98% 03/07/2023 8:16 AM DIRECT MAIL COORDINATOR Inhaled Oxygen Concentration - - Weight 117.8 kg (259 lb 12.8 oz) 03/07/2023 8:16 AM DIRECT MAIL COORDINATOR Height - - Body Mass Index - [...] 03/07/2023 Preventative Visit- Commercial 04/22/2024 [place] [address] [facility] BLUE ACCESS CHOICE Care Teams Education Rn Relationship Specialty Start Date End Date Mckayla Mjeia DO [address] [place] [phone] PCP - General Internal Medicine 03/07/23
--- OUTSIDE RECORDS SUMMARY | 2024-08-20 17:35 | XMS_ITS | Clinical Summary ---
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
[2024-08-20 17:46] LABS: Phosphorus 2.8 mg/dL (2.5-4.5)
[2024-08-20 17:57] LABS: Glucose Point of Care 295 mg/dl (65-105)
[2024-08-20] MEDS: SODIUM CHLORIDE 0.9% IV 250 ML 999 ML (18:00)
[2024-08-20] MEDS: INSULIN HUMAN REGULAR (*BKC) 100 UNITS in SODIUM CHLORIDE 0.9% IV 99 ML 11 UNITS IV CONT (18:25)
[2024-08-20] MEDS: SODIUM CHLORIDE 0.9% IV 1,000 ML 150 ML IV CONT (18:26)
[2024-08-20 18:33] LABS: Add Urine Microscopic? YES; Appearance Urine Clear (Clear); Bacteria Urine None Seen /hpf; Bilirubin Urine Negative (Negative); Blood Urine Negative (Negative); Color Urine Yellow (Yellow); Glucose Urine UA 2+ mg/dL (Negative); Ketones Urine 4+ mg/dL (Negative); Leukocyte Esterase Ur Negative LEU/UL (Negative); Nitrate Urine Negative (Negative); Non Pathogenic Casts 0-2; Protein Urine 2+ mg/dL (Negative); RBC Urine 0-2 /hpf (0-2); Specific Grav Ur 1.026 (1.001-1.035); Squamous Epithelial Cell Urine None Seen /hpf (Few); Urobilinogen Urine 0.2 mg/dL (<2.0); WBC Urine 0-5 /hpf (0-3); pH Urine 5.5 (5.0-9.0)
[2024-08-20 18:38] VITALS: BP 167/102; PULSE 82; RESP 16; O2SAT 96
[2024-08-20 19:10] LABS: Glucose Point of Care 293 mg/dl (65-105)
[2024-08-20 19:28] VITALS: BMI 39.9
[2024-08-20] MEDS: KCL 20 MEQ/D5/0.45% SOD CHL 1,000 ML 150 ML IV CONT (19:28)
--- NOTE | 2024-08-20 19:28 | PC.NURSE ---
This patient, Jigar Velez, was admitted to Intensive Care Unit-9. Patient/family oriented to hospital policies and general routines including ID bracelet, bed and alarms, visiting hours, pain management, procedures, bathroom and other care routines, personal items, smoking policy, room service/diet, and visiting hours. Information on how to activate the Rapid Response Team has been discussed. Patient/Family are encouraged to report perceived risks to care and to ask questions if they do not understand what they are told or what they should do.
[2024-08-20 19:36] LABS: Glucose Point of Care 224 mg/dl (65-105)
[2024-08-20 20:00] VITALS: BP 125/92; PULSE 110; PULSE 112; RESP 18; TEMP 36.7; O2SAT 97
[2024-08-20 20:16] LABS: Anion Gap 15 mmol/L (4-12); Blood Urea Nitrogen 12 mg/dL (9-20); Calcium 8.5 mg/dL (8.4-10.2); Carbon Dioxide 19 mmol/L (22-30); Chloride 103 mmol/L (98-107); Estimated CRCL calculation 111 ml/min; Estimated Glomerular Filt Rate > 60; Glucose 184 mg/dL (65-110); Potassium 3.6 mmol/L (3.4-5.0); Sodium 137 mmol/L (137-145)
[2024-08-20 20:30] LABS: Glucose Point of Care 154 mg/dl (65-105)
[2024-08-20 20:52] VITALS: PULSE 114; RESP 27; O2SAT 97
--- NOTE | 2024-08-20 21:26 | P.HP_ITS ---
H&P: HPI History of Present Illness Date/Time: 08/20/24 21:26 Chief Complaint: Nausea, Vomiting Narrative: 49 y/o M with PMH of type 2 diabetes and morbid obesity presents here with nausea and vomiting. The patient presents here from home on 08/20 for further evaluation of nausea, vomiting, and abdominal pain. He reports onset of the symptoms on 08/17. He reports associated poor p.o. intake, chills, and diarrhea. Abdominal pain is described as central with radiation into his esophagus. He denies accompanying fever or body aches. He denies any significant GI history or abdominal surgeries. Patient additionally reports he has been off his diabetes medications for the past 2 months - cost largely the factor as he did not have insurance. No other complaints at this time. Initial VS at presentation: 98.1? F, HR 74, R 19, 146/94, and 98% on RA. ED workup showed: WBC 12.7, no anemia, ABG showed a pH of 7.395, sodium 136, creatinine 1.05 and GFR >60, glucose 360, and beta hydroxy 2.37. UA showed 2+ protein, 2+ glucose, 4+ ketones. CT of the abdomen/pelvis showed finding suggestive of pancolitis. Review of Systems Review of Systems: All systems reviewed & are unremarkable except as noted in HPI and below PMFSH Past Medical History Medical History Morbid obesity Type 2 diabetes mellitus Surgical History Surgical History No pertinent past surgical history Family History Family History Grandparent Diabetes mellitus Mother Diabetes mellitus Father Asthma Social History Social History Social History: Surrogate medical decision maker: Marcelle Velez, mother. Code status: Full code. Smoking status: Former smoker Tobacco type: cigarettes Alcohol intake: never Substance use: former Substance use type: marijuana Last use: 08/16/2024 Do You Feel Safe in your Home?: Yes Lack of Transportation: No Lack of Food: Never True Current Housing: I Have Housing Concerned About Future Housing: No Difficulty Paying Gas/Electric Bills: No Difficulty Paying for Meds: YES Currently Unemployed: No Education: Decline to Answer Difficulty w/ Childcare or Family Care: No Additional living arrangements comments: Lives with family in [place]. 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 Spiritual care concerns: No Meds Home Medications and Allergies Home Medications ?Medication ?Instructions ?Recorded ?Confirmed ?Type blood sugar diagnostic (OneTouch #1 pk 04/07/24 Rx Verio test strips) blood-glucose meter (OneTouch #1 pkg 04/07/24 Rx Verio Flex Meter) insulin aspart U-100 100 unit/mL 3 - 6 unit subcut TIDWM #1 mL 04/07/24 08/20/24 Rx subcutaneous solution (Novolog U-100 Insulin aspart) insulin aspart U-100 100 unit/mL 10 unit (0.1 mL) subcut TIDWM #1 04/07/24 08/20/24 Rx subcutaneous solution (Novolog vial U-100 Insulin aspart) insulin glargine 100 unit/mL 23 unit (0.23 mL) subcut HS #1 vial 04/07/24 08/20/24 Rx subcutaneous solution (Lantus U-100 Insulin) lancets 30 gauge (OneTouch Delica #1 [facility] 04/07/24 Rx Plus Lancet) lisinopril 20 mg tablet 20 mg PO DAILY #30 tabs 04/07/24 08/20/24 Rx Allergies Allergy/AdvReac Type Severity Reaction Status Date / Time No Known Allergies Allergy Verified 08/20/24 19:38 Vital Signs Vital Signs - 24 hr 08/20/24 16:02 08/20/24 18:38 08/20/24 20:00 Temperature 98.1 F 98.1 F Pulse Rate 74 82 112 H Respiratory Rate 19 16 18 Blood Pressure 146/94 H 167/102 H 125/92 H Pulse Oximetry 98 96 97 Oxygen Delivery Room Air Fraction of Inspired Oxygen 08/20/24 20:52 Temperature Pulse Rate 114 H Respiratory Rate 27 H Blood Pressure Pulse Oximetry 97 Oxygen Delivery Room Air Fraction of Inspired Oxygen 21 Exam Const: General: comfortable and no acute distress Other: , male, obese body habitus, nontoxic appearance HENMT: Face/Nose/Sinus: Normal nares present Mouth: Yes moist mucous membranes Eyes: General: appearance normal, both eyes and all related structures S clera: sclerae normal Pupils: Equal, round and reactive pupils present EOM: EOMs intact bilaterally Resp: Effort & Inspection: normal respiratory effort Auscultation: clear to auscultation bilaterally Cardio: Rate: regular rate Rhythm: regular rhythm Other: S1-S2 present without murmur, rub, ectopy GI: Other: Abdomen soft, nondistended. Diffuse tenderness. Normoactive bowel sounds in all quadrants. Skin: General skin exam: normal color and no rashes or lesions noted Wounds: no wounds Neuro: Speech: normal speech Motor exam (neuro): 5/5 motor strength present throughout Sensory Exam: normal sensation Other: A&O x4 Extrem: General: normal to inspection Psych: Mental Status: mental status grossly normal Affect: normal affect Other: Good insight and judgment, pleasant H&P: Results Labs Labs: Short CBC 08/20/24 Range/Units 16:26 WBC 12.7 H (4.5-10.0) K/mm3 Hgb 16.8 (14.0-18.0) g/dL Hct 49.5 (42.0-52.0) % Plt Count 408 H (150-375) k/mm3 BMP 08/20/24 08/20/24 16:26 19:53 Sodium 136 L 137 Potassium 4.0 3.6 Chloride 100 103 Carbon Dioxide 17 L 19 L BUN 15 D 12 Creatinine 1.05 0.85 Glucose 360 H 184 H Calcium 9.8 8.5 Liver Function 08/20/24 Range/Units 16:26 Total Bilirubin 0.7 (0.2-1.3) mg/dL AST 26 (17-59) U/L ALT 40 (6-50) U/L Alkaline Phosphatase 110 (38-126) U/L Albumin 4.9 (3.5-5.1) g/dL Urine 08/20/24 Range/Units 18:22 Urine Color Yellow (Yellow) Urine Appearance Clear (Clear) Urine pH 5.5 (5.0-9.0) Ur Specific [place] 1.026 (1.001-1.035) Urine Protein 2+ H (Negative) mg/dL Urine Glucose (UA) 2+ H (Negative) mg/dL Assessment and Plan Assessment and plan (1) Diabetic ketoacidosis: Qualifiers: Diabetes mellitus type: type 2 Diabetes mellitus complication detail: without coma Qualified Code(s): E11.10 - Type 2 diabetes mellitus with ketoacidosis without coma Code(s): E11.10 - Type 2 diabetes mellitus with ketoacidosis without coma Status: Acute Assessment and Plan: - history of type 2 diabetes, has been off medication for the past XX. - initial glucose - CO2 17, gap 19, beta hydroxy 2.37, serum blood sugar 360 - trend BMP Q4H, repeat Mag and Phos - DKA protocol initiated and patient admitted to the ICU with bench hand machine consulted - IV fluids: given 2L in ED. Now on 150 mL/hr - insulin gtt currently running at 4 u/hr - NPO - A1c 10.0% - outreach educator consulted - book jogger consulted (2) Colitis: Code(s): K52.9 - Noninfective gastroenteritis and colitis, unspecified Status: Acute Assessment and Plan: - CT abdomen/pelvis: findings suggesting pancolitis. - started on Zosyn on 08/20 - analgesics, antipyretic, and antiemetics p.r.n. - IV fluids (3) Type 2 diabetes mellitus with hyperglycemia: Qualifiers: Diabetes mellitus rn long term care insulin use: without half-way use Qualified Code(s): E11.65 - Type 2 diabetes mellitus with hyperglycemia Code(s): E11.65 - Type 2 diabetes mellitus with hyperglycemia Status: Acute Assessment and Plan: - see #1 Plan Diet: NPO GI Prophylaxis: Pantoprazole DVT Prophylaxis: SCDs IV fluids: 150 mL/hr Lines/Tubes: Peripheral IV Code Status: Full code Quality VTE Prophylaxis VTE prophylaxis: mechanical ordered Critical Care Time: I personally spent 35 minutes of direct patient care including (but not limited to) the physical examination, decision-making, bedside evaluation, review of medical records, review of labs and imaging, discussion with nursing staff and other providers for collaborative, critical care management of this patient. Hospitalist [facility] Advance Care Plan I have confirmed that the patient's Advanced Care Plan is present, code status is documented, or surrogate decision maker is listed in patient medical record.: Yes Medication Reconciliation I have utilized all available resources to obtain, update and review the patients current medications (includes all prescriptions, OTC, herbals, cannabis, and nutritional supplements).: Yes
[2024-08-20 21:33] LABS: Glucose Point of Care 129 mg/dl (65-105)
[2024-08-20] MEDS: PIPERACILLN/TAZ 3.375GM/NS50ML 3.375 GM/50 ML BAG IVPB (21:46)
[2024-08-20 22:00] VITALS: BP 134/80; PULSE 77; PULSE 90; RESP 13; O2SAT 98
[2024-08-20 22:35] LABS: Glucose Point of Care 198 mg/dl (65-105)
[2024-08-20 23:36] LABS: Glucose Point of Care 235 mg/dl (65-105)
[2024-08-21] VITALS (11 sets, daily range): BP systolic 101–146; BP diastolic 75–98; PULSE 68–101; RESP 14–20; TEMP 36.3–37.2; O2SAT 96–100; BMI 41.1
[2024-08-21 00:14] LABS: Anion Gap 14 mmol/L (4-12); Blood Urea Nitrogen 9 mg/dL (9-20); Calcium 8.5 mg/dL (8.4-10.2); Carbon Dioxide 21 mmol/L (22-30); Chloride 103 mmol/L (98-107); Estimated CRCL calculation 121 ml/min; Estimated Glomerular Filt Rate > 60; Glucose 213 mg/dL (65-110); Potassium 3.5 mmol/L (3.4-5.0); Sodium 138 mmol/L (137-145)
[2024-08-21 00:23] LABS: Glucose Point of Care 231 mg/dl (65-105)
[2024-08-21 01:37] LABS: Glucose Point of Care 238 mg/dl (65-105)
[2024-08-21 02:28] LABS: Glucose Point of Care 248 mg/dl (65-105)
[2024-08-21 03:25] LABS: Glucose Point of Care 259 mg/dl (65-105)
[2024-08-21] MEDS: KCL 20 MEQ/D5/0.45% SOD CHL 1,000 ML 150 ML IV CONT (04:38)
[2024-08-21 04:52] LABS: Glucose Point of Care 232 mg/dl (65-105)
[2024-08-21] MEDS: PIPERACILLN/TAZ 3.375GM/NS50ML 3.375 GM/50 ML BAG IVPB ×3 (05:48→17:10)
[2024-08-21 05:56] LABS: Glucose Point of Care 214 mg/dl (65-105)
[2024-08-21 06:33] LABS: Glucose Point of Care 177 mg/dl (65-105)
[2024-08-21 07:13] LABS: Anion Gap 8 mmol/L (4-12); Blood Urea Nitrogen 9 mg/dL (9-20); Calcium 8.3 mg/dL (8.4-10.2); Carbon Dioxide 23 mmol/L (22-30); Chloride 106 mmol/L (98-107); Estimated CRCL calculation 117 ml/min; Estimated Glomerular Filt Rate > 60; Glucose 206 mg/dL (65-110); Potassium 3.5 mmol/L (3.4-5.0); Sodium 137 mmol/L (137-145)
[2024-08-21 07:28] LABS: Glucose Point of Care 233 mg/dl (65-105)
--- NOTE | 2024-08-21 07:47 | PC.NURSE ---
Brush Operator called and voicemail left with callback number at [phone] for new patient consult.
[2024-08-21 08:38] LABS: Glucose Point of Care 236 mg/dl (65-105)
[2024-08-21] MEDS: INSULIN GLARGINE (*BKC) 100 UNITS/ML 15 UNITS SUB-Q (08:50)
[2024-08-21] MEDS: PANTOPRAZOLE SODIUM IV 40 MG VIAL IV PUSH ×2 (08:52→21:32)
[2024-08-21 09:30] LABS: Glucose Point of Care 246 mg/dl (65-105)
--- NOTE | 2024-08-21 09:30 | P.CONIN_ITS ---
Assessment and Plan Assessment and plan (1) Diabetic ketoacidosis: Qualifiers: Diabetes mellitus complication detail: without coma Diabetes mellitus type: type 2 Qualified Code(s): E11.10 - Type 2 diabetes mellitus with ketoacidosis without coma Code(s): E11.10 - Type 2 diabetes mellitus with ketoacidosis without coma Status: Acute Assessment and Plan: 08/20: Patient presented with nausea, vomiting, abdominal pain -was found to have diabetic ketoacidosis with hyperglycemia, elevated beta hydroxybutyrate from a elevated anion gap, metabolic acidosis -patient was adequately fluid-resuscitated, started on insulin infusion -this morning anion gap is closed, will transition to long-acting insulin Lantus and sliding scale insulin, -patient stated that he has not been taking his medications for roughly 2 months as he did not have medical insurance, he has attained insurance in a be more regular with his insulin -senior health educator and dietitian have been consulted -hemoglobin A1c was 10.0 this admission -will start clear liquid diet and advance to diabetic diet (2) Colitis: Code(s): K52.9 - Noninfective gastroenteritis and colitis, unspecified Status: Acute Assessment and Plan: Patient with abdominal pain CT scan of the abdomen and pelvis on admission showed Trace mural thickening and edema within the entirety of the colon with surrounding inflammatory change, findings suggesting a pancolitis -patient denies any pain this morning (3) Elevated blood pressure reading: Code(s): R03.0 - Elevated blood-pressure reading, without diagnosis of hypertension Status: Acute Assessment and Plan: Blood pressure is a elevated -will continue home lisinopril (4) Nausea and vomiting: Code(s): R11.2 - Nausea with vomiting, unspecified Status: Acute Assessment and Plan: Resolved Plan DVT prophylaxis: SCDs Stress ulcer prophylaxis: Protonix Nutrition: Clear liquid diet, advanced to diabetic diet Code Status: Full code Critical Care Time Spent: 46 minutes Due to a high probability of clinically significant, life threatening deterioration, the patient required my highest level of preparedness to intervene emergently and I personally spent this critical care time directly and personally managing the patient. This critical care time included obtaining a history; examining the patient; pulse oximetry; ordering and review of studies; arranging urgent treatment with development of a management plan; evaluation of patient's response to treatment; frequent reassessment; and discussions with other providers. It was exclusive of separately billable procedures and treating other patients and teaching time. Please see Assessment and Plan section and the rest of the note for further information on patient assessment and treatment This dictation may have been done utilizing a voice recognition system. Attempts have been made to correct errors. However, there may be uncorrected grammatical, spelling, and recognitions errors present. Road Design Draftsperson Consult Note Consult date: 08/21/24 Reason for consult: Diabetic ketoacidosis, noncompliance of diabetes medications, nausea, vomiting, abdominal pain HPI: Jigar Velez is a 49 year old male past medical history of diabetes, obesity presented the ED on 08/20/2024 with nausea, vomiting, abdominal pain, noncompliance of diabetic medications. Patient also complained of decreased oral intake, chills and diarrhea. In the ED patient was found to be in diabetic ketoacidosis with blood sugar of 360, elevated beta hydroxybutyrate. UA showed 2+ proteins, 2+ glucose and 4+ ketones. WBC count of 12.7, CO2 of 17, anion gap of 19. Electrolytes were within normal limits. Hemoglobin A1c was 10.0, LFTs are within normal limits. Patient was given 2 L IV fluid bolus in the ER, started on insulin infusion. CT scan of the abdomen and pelvis on admission showed Trace mural thickening and edema within the entirety of the colon with surrounding inflammatory change, findings suggesting a pancolitis. Patient was started on Zosyn, and was transferred to the ICU for further management Patient seen and examined the ICU this morning, is awake, alert, pleasant gentleman, in no acute distress, denies any shortness of breath, chest pain, abdominal pain, nausea, vomiting. States he did not take his insulin as he did not have insurance, has acquired insurance now so we will be able to obtain his insulin. He stated he is going to be regular with his medications. Hemodynamically stable, complains of a headache Review of Systems 2 Review of Systems: All systems reviewed & are unremarkable except as noted in HPI and below PMFSH Past Medical History Medical History Morbid obesity Type 2 diabetes mellitus Surgical History Surgical History No pertinent past surgical history Family History Family History Grandparent Diabetes mellitus Mother Diabetes mellitus Father Asthma Social History Social History Social History: Surrogate medical decision maker: Marcelle Velez, mother. Code status: Full code. Smoking status: Former smoker Tobacco type: cigarettes Alcohol intake: never Substance use: former Substance use type: marijuana Last use: 08/16/2024 Do You Feel Safe in your Home?: Yes Lack of Transportation: No Lack of Food: Never True Current Housing: I Have Housing Concerned About Future Housing: No Difficulty Paying Gas/Electric Bills: No Difficulty Paying for Meds: YES Currently Unemployed: No Education: Decline to Answer Difficulty w/ Childcare or Family Care: No Additional living arrangements comments: Lives with family in [place]. 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 Spiritual care concerns: No Meds Home Medications and Allergies Home Medications ?Medication ?Instructions ?Recorded ?Confirmed ?Type blood sugar diagnostic (SolastaTouch #1 [facility] 04/07/24 Rx Verio test strips) blood-glucose meter (OneTouch #1 [facility] 04/07/24 Rx Verio Flex Meter) insulin aspart U-100 100 unit/mL 3 - 6 unit subcut TIDWM #1 mL 04/07/24 08/20/24 Rx subcutaneous solution (Novolog U-100 Insulin aspart) insulin aspart U-100 100 unit/mL 10 unit (0.1 mL) subcut TIDWM #1 04/07/24 08/20/24 Rx subcutaneous solution (Novolog vial U-100 Insulin aspart) insulin glargine 100 unit/mL 23 unit (0.23 mL) subcut HS #1 vial 04/07/24 08/20/24 Rx subcutaneous solution (Lantus U-100 Insulin) lancets 30 gauge (OneTouch Delica #1 pkg 04/07/24 Rx Plus Lancet) lisinopril 20 mg tablet 20 mg PO DAILY #30 tabs 04/07/24 08/20/24 Rx Allergies Allergy/AdvReac Type Severity Reaction Status Date / Time No Known Allergies Allergy Verified 08/20/24 19:38 Vital Signs Vital Signs - 24 hr 08/20/24 16:02 08/20/24 18:38 08/20/24 20:00 Temperature 98.1 F 98.1 F Pulse Rate 74 82 112 H Respiratory Rate 19 16 18 Blood Pressure 146/94 H 167/102 H 125/92 H Pulse Oximetry 98 96 97 Oxygen Delivery Room Air Fraction of Inspired Oxygen 08/20/24 20:00 08/20/24 20:00 08/20/24 20:52 Temperature Pulse Rate 110 H 114 H Respiratory Rate 27 H Blood Pressure Pulse Oximetry 97 Oxygen Delivery Room Air Room Air Fraction of Inspired Oxygen 21 08/20/24 22:00 08/20/24 22:00 08/21/24 00:00 Temperature 98.8 F Pulse Rate 90 77 98 Respiratory Rate 13 20 Blood Pressure 134/80 101/85 Pulse Oximetry 98 97 Oxygen Delivery Fraction of Inspired Oxygen 08/21/24 00:00 08/21/24 00:00 08/21/24 02:00 Temperature Pulse Rate 101 H 81 Respiratory Rate 14 Blood Pressure 134/91 H Pulse Oximetry 96 Oxygen Delivery Room Air Fraction of Inspired Oxygen 08/21/24 02:00 08/21/24 04:00 08/21/24 04:00 Temperature Pulse Rate 87 69 Respiratory Rate 18 Blood Pressure 132/89 Pulse Oximetry 97 Oxygen Delivery Room Air Fraction of Inspired Oxygen 08/21/24 04:00 08/21/24 06:00 08/21/24 06:00 Temperature 98.7 F Pulse Rate 69 75 68 Respiratory Rate 15 Blood Pressure 134/95 H Pulse Oximetry 96 Oxygen Delivery Fraction of Inspired Oxygen 08/21/24 08:00 08/21/24 09:02 Temperature 98.1 F Pulse Rate 76 Respiratory Rate 16 Blood Pressure 140/78 Pulse Oximetry 97 Oxygen Delivery Fraction of Inspired Oxygen Exam 2 Narrative: General: Pleasant gentleman in no acute distress HEENT:? Pupils equal and reactive, sclera clear, moist oral mucosa Neck:? Supple Respiratory:? Clear to auscultation bilateral Cardiac:? S1-S2 normal, regular rate and rhythm Abdomen:? Soft, nontender, nondistended, obese, normoactive bowel sounds Extremities:? No edema, palpable pedal pulses Neuro:? Patient is awake, alert, oriented, nonfocal Skin:? No skin lesions noted Psych:? Normal mentation and affect Results Labs 08/20/24 16:26 08/21/24 06:52 Labs: Short CBC 08/20/24 Range/Units 16:26 WBC 12.7 H (4.5-10.0) K/mm3 Hgb 16.8 (14.0-18.0) g/dL Hct 49.5 (42.0-52.0) % Plt Count 408 H (150-375) k/mm3 BMP 08/20/24 08/20/24 08/20/24 16:26 19:53 23:57 Sodium 136 L 137 138 Potassium 4.0 3.6 3.5 Chloride 100 103 103 Carbon Dioxide 17 L 19 L 21 L BUN 15 D 12 9 Creatinine 1.05 0.85 0.77 Glucose 360 H 184 H 213 H Calcium 9.8 8.5 8.5 08/21/24 06:52 Sodium 137 Potassium 3.5 Chloride 106 Carbon Dioxide 23 BUN 9 Creatinine 0.81 Glucose 206 H Calcium 8.3 L Liver Function 08/20/24 Range/Units 16:26 Total Bilirubin 0.7 (0.2-1.3) mg/dL AST 26 (17-59) U/L ALT 40 (6-50) U/L Alkaline Phosphatase 110 (38-126) U/L Albumin 4.9 (3.5-5.1) g/dL Urine 08/20/24 Range/Units 18:22 Urine Color Yellow (Yellow) Urine Appearance Clear (Clear) Urine pH 5.5 (5.0-9.0) Ur Specific [place] 1.026 (1.001-1.035) Urine Protein 2+ H (Negative) mg/dL Urine Glucose (UA) 2+ H (Negative) mg/dL Quality VTE Prophylaxis VTE prophylaxis: mechanical ordered Hospitalist MIPS Advance Care Plan I have confirmed that the patient's Advanced Care Plan is present, code status is documented, or surrogate decision maker is listed in patient medical record.: Yes Medication Reconciliation I have utilized all available resources to obtain, update and review the patients current medications (includes all prescriptions, OTC, herbals, cannabis, and nutritional supplements).: Yes
[2024-08-21 10:29] LABS: Basophils Percent Auto 0.4 % (0.2-1.2); Eosinophils Absolute Auto 0.1 K/mm3 (0-0.3); Eosinophils Percent Auto 1.4 % (0-4.4); Hematocrit 42.1 % (42.0-52.0); Immature Granulocyte Absolute 0.03 K/mm3 (0.00-0.031); Immature Granulocyte Percent A 0.3 % (0-0.5); Lymphocytes Absolute Auto 3.63 K/mm3 (0.9-3.2); Lymphocytes Percent Auto 36.3 % (18.3-44.2); Mean Corpuscular HGB Conc 33.3 g/dl (32-36); Mean Corpuscular Hemoglobin 29.4 pg (26-34); Mean Corpuscular Volume 88.4 fl (80-100); Mean Platelet Volume 9.4 fl (7.4-10.4); Monocytes Absolute Auto 0.6 K/mm3 (0.1-0.6); Monocytes Percent Auto 6.4 % (2.6-8.5); Neutrophils Absolute Auto 5.5 K/mm3 (1.3-6.7); Neutrophils Percent Auto 55.2 % (45.5-73.1); Platelet Count Result 282 k/mm3 (150-375); Red Blood Count 4.76 M/mm3 (4.6-6.20); Red Cell Distribution Width 12.7 % (11.5-14.5)
[2024-08-21 10:29] LABS: Glucose Point of Care 267 mg/dl (65-105)
[2024-08-21 10:46] LABS: Anion Gap 9 mmol/L (4-12); Blood Urea Nitrogen 8 mg/dL (9-20); Calcium 8.3 mg/dL (8.4-10.2); Carbon Dioxide 21 mmol/L (22-30); Chloride 105 mmol/L (98-107); Estimated CRCL calculation 122 ml/min; Estimated Glomerular Filt Rate > 60; Glucose 266 mg/dL (65-110); Potassium 3.6 mmol/L (3.4-5.0); Sodium 135 mmol/L (137-145)
[2024-08-21] MEDS: lisinopriL 20 MG TABLET PO (10:58)
[2024-08-21] MEDS: INSULIN GLARGINE (*BKC) 100 UNITS/ML SUB-Q (10:58)
[2024-08-21 11:27] LABS: Glucose Point of Care 254 mg/dl (65-105)
[2024-08-21] MEDS: ACETAMINOPHEN 325 MG TABLET 650 MG PO (11:46)
[2024-08-21] MEDS: INSULIN ASPART (*BKC) 100 UNITS/ML SUB-Q ×3 (11:47→21:31)
--- NOTE | 2024-08-21 12:34 | PC.NURSE ---
public health educator Roberta rounded on patient at 1234. Recommended insulin pen for discharge rather than needle/insulin vial regimen to maintain better compliance outpatient. RN to pass Diabetic Educators recommendations along to attending provider.
[2024-08-21 15:07] LABS: Anion Gap 9 mmol/L (4-12); Blood Urea Nitrogen 7 mg/dL (9-20); Calcium 8.5 mg/dL (8.4-10.2); Carbon Dioxide 22 mmol/L (22-30); Chloride 103 mmol/L (98-107); Estimated CRCL calculation 129 ml/min; Estimated Glomerular Filt Rate > 60; Glucose 260 mg/dL (65-110); Potassium 3.8 mmol/L (3.4-5.0); Sodium 134 mmol/L (137-145)
[2024-08-21] MEDS: BELLADONNA ALK/PHENOB ELIX 10 ML, MAG HYDROX/ALUMINUM HYD/SIMETH 30 ML, LIDOCAINE 2% VI... PO (16:04)
[2024-08-21 16:19] LABS: Glucose Point of Care 281 mg/dl (65-105)
[2024-08-21] MEDS: ONDANSETRON INJ 4 MG/2 ML VIAL IV PUSH (17:10)
[2024-08-21] MEDS: KETOROLAC 30 MG/ML VIAL (*BKC) IV PUSH (17:48)
[2024-08-21] MEDS: CALCIUM CARBONATE (TUMS) 500 MG (200 MG ELEMENTAL) PO (17:52)
--- NOTE | 2024-08-21 18:35 | PC.NURSE ---
Report given to NASEEM Stovall at 1835. All questions answered and plan of care reviewed. Patient to move to room 315.
[2024-08-21] MEDS: PROCHLORPERAZINE EDISYLATE 10 MG/2 ML VIAL IV PUSH (19:04)
[2024-08-21 21:30] LABS: Glucose Point of Care 246 mg/dl (65-105)
[2024-08-21] MEDS: diphenhydrAMINE HCl INJ 50 MG/ML VIAL 25 MG IV PUSH (21:30)
[2024-08-22 00:19] LABS: Glucose Point of Care 204 mg/dl (65-105)
[2024-08-22] MEDS: PIPERACILLN/TAZ 3.375GM/NS50ML 3.375 GM/50 ML BAG IVPB ×5 (02:17→23:09)
[2024-08-22 05:34] VITALS: BP 122/83; PULSE 69; RESP 20; TEMP 36.9; O2SAT 97
[2024-08-22 06:52] LABS: Basophils Percent Auto 0.4 % (0.2-1.2); Eosinophils Absolute Auto 0.1 K/mm3 (0-0.3); Eosinophils Percent Auto 1.1 % (0-4.4); Hematocrit 43.3 % (42.0-52.0); Hemoglobin 14.5 g/dL (14.0-18.0); Immature Granulocyte Absolute 0.03 K/mm3 (0.00-0.031); Immature Granulocyte Percent A 0.3 % (0-0.5); Lymphocytes Percent Auto 41.4 % (18.3-44.2); Mean Corpuscular HGB Conc 33.5 g/dl (32-36); Mean Corpuscular Hemoglobin 29.5 pg (26-34); Mean Corpuscular Volume 88.2 fl (80-100); Mean Platelet Volume 9.3 fl (7.4-10.4); Monocytes Absolute Auto 0.6 K/mm3 (0.1-0.6); Neutrophils Absolute Auto 4.9 K/mm3 (1.3-6.7); Neutrophils Percent Auto 50.8 % (45.5-73.1); Platelet Count Result 307 k/mm3 (150-375); Red Blood Count 4.91 M/mm3 (4.6-6.20); Red Cell Distribution Width 12.6 % (11.5-14.5); White Blood Count 9.7 K/mm3 (4.5-10.0)
[2024-08-22 06:58] LABS: Anion Gap 9 mmol/L (4-12); Blood Urea Nitrogen 8 mg/dL (9-20); Calcium 8.6 mg/dL (8.4-10.2); Carbon Dioxide 23 mmol/L (22-30); Chloride 104 mmol/L (98-107); Estimated CRCL calculation 114 ml/min; Estimated Glomerular Filt Rate > 60; Glucose 150 mg/dL (65-110); Magnesium 1.8 mg/dL (1.6-2.3); Phosphorus 4.4 mg/dL (2.5-4.5); Potassium 3.4 mmol/L (3.4-5.0); Sodium 136 mmol/L (137-145)
[2024-08-22 07:51] LABS: Glucose Point of Care 159 mg/dl (65-105)
[2024-08-22] MEDS: PANTOPRAZOLE SODIUM IV 40 MG VIAL IV PUSH ×2 (08:41→20:23)
[2024-08-22] MEDS: lisinopriL 20 MG TABLET PO (08:41)
[2024-08-22] MEDS: INSULIN GLARGINE (*BKC) 100 UNITS/ML 20 UNITS SUB-Q (08:42)
[2024-08-22] MEDS: ONDANSETRON INJ 4 MG/2 ML VIAL IV PUSH ×2 (08:53→10:52)
[2024-08-22] MEDS: CALCIUM CARBONATE (TUMS) 500 MG (200 MG ELEMENTAL) PO (10:16)
[2024-08-22] MEDS: MORPHINE SULFATE (*CRX) 4 MG/ML INJ IV PUSH (10:20)
[2024-08-22 11:10] LABS: Glucose Point of Care 304 mg/dl (65-105)
--- NOTE | 2024-08-22 11:44 | ECG_ITS ---
Test Date: 2024-08-22 12:14:33 Measurements Intervals [place] Rate: 80 P: 60 MO: 165 QRS: -39 QRSD: 90 T: 30 QT: 371 QTc: 428 Interpretive Statements SINUS RHYTHM WITH MARKED SINUS ARRHYTHMIA LEFT AXIS DEVIATION [QRS AXIS < -30] POOR PROGRESSION OF PRECORDIAL R WAVES PATTERN CONSISTENT WITH PULMONARY DISEASE Compared to ECG 10/26/2023 14:52:56 Myocardial infarct finding no longer present Electronically Signed On 08-23-2024 15:58:04 CDT by Josie Gonzalez
--- NOTE | 2024-08-22 11:54 | PM.IMPN ---
Progress Note: A&P Assessment and Plan (1) Diabetic ketoacidosis: Qualifiers: Diabetes mellitus complication detail: without coma Diabetes mellitus type: type 2 Qualified Code(s): E11.10 - Type 2 diabetes mellitus with ketoacidosis without coma Code(s): E11.10 - Type 2 diabetes mellitus with ketoacidosis without coma Status: Acute Assessment and Plan: 08/20: Patient presented with nausea, vomiting, abdominal pain -was found to have diabetic ketoacidosis with hyperglycemia, elevated beta hydroxybutyrate from a elevated anion gap, metabolic acidosis -patient was adequately fluid-resuscitated, started on insulin infusion -this morning anion gap is closed, will transition to long-acting insulin Lantus and sliding scale insulin, -patient stated that he has not been taking his medications for roughly 2 months as he did not have medical insurance, he has attained insurance in a be more regular with his insulin -environmental educator and dietitian have been consulted -hemoglobin A1c was 10.0 this admission -08/22 FBS 150, advance to full liquids, bland, diabetic (2) Nausea and vomiting: Code(s): R11.2 - Nausea with vomiting, unspecified Status: Acute Assessment and Plan: Recurrent with epigastric and substernal burning pain. This is limiting stabilization of his diabetic control and requires resolution prior to discharge Suspect esophagitis with possible gastritis/PUD; IBD less likely but suggested by colitis findings on CT PRN prochlorperazine, PRN lorazepam, treat GERD (3) GERD (gastroesophageal reflux disease): Code(s): K21.9 - Gastro-esophageal reflux disease without esophagitis Status: Acute Assessment and Plan: BID PPI IV Carafate liquid qid PRN analgesics (4) Dysphagia: Code(s): R13.10 - Dysphagia, unspecified Status: Acute Assessment and Plan: GI consultation for possible EGD (5) Chest pain: Code(s): R07.9 - Chest pain, unspecified Status: Acute Assessment and Plan: Suspect due to GERD /3 Repeat EKG due to risk factors for CAD (6) Elevated blood pressure reading: Code(s): R03.0 - Elevated blood-pressure reading, without diagnosis of hypertension Status: Acute Assessment and Plan: 08/22 controlled (7) Colitis: Code(s): K52.9 - Noninfective gastroenteritis and colitis, unspecified Status: Acute Assessment and Plan: Patient with abdominal pain CT scan of the abdomen and pelvis on admission showed Trace mural thickening and edema within the entirety of the colon with surrounding inflammatory change, findings suggesting a pancolitis Clinically he does not have s/sx of colitis other than n/v, epigastric tenderness He would benefit from a screening colonoscopy as an outpatient Subjective Date/time seen: 08/22/24 11:54 Interval history: Recurrent nausea with emesis. Substernal burning. Was relieved by GI cocktail. Nausea relieved by prochlorperazine but not Zofran. Food or water tense to feel like it is stuck either in the suprasternal notch or substernal area. Distributes vomiting. He has not vomited blood. He has not passed blood. Other than sweating and anxiety associated with the vomiting he has not had any other symptoms. He denied exertional chest burning or discomfort. Denied shortness of breath. 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 He has not used any since admission. Review of Systems Review of Systems: All systems reviewed & are unremarkable except as noted in HPI and below Exam Narrative: HEENT: PERRL, sclerae nonicteric, pharyngeal mucosa pink and intact NECK: No JVD CHEST: Clear to auscultation. Normal effort. HEART: NL S1/S2, regular, no murmur ABDOMEN: BS+, soft, exquisite epigastric tenderness, no mass, no bruits EXTREMITIES: No cyanosis, edema, or clubbing NEUROLOGIC: CN intact and symmetric to inspection. MUSCULOSKELETAL: Tone and strength symmetric. PSYCH: Alert. Oriented to person, place, and time. Objective Data Vital Signs Vital Signs: Vital Signs - 24 hr 08/21/24 12:00 08/21/24 16:00 08/21/24 19:06 Temperature 98.9 F 98.4 F 97.4 F L Pulse Rate 68 77 Respiratory Rate 20 16 Blood Pressure 137/95 H 146/98 H Pulse Oximetry 100 100 08/21/24 22:06 08/22/24 05:34 Temperature 97.7 F 98.4 F Pulse Rate 79 69 Respiratory Rate 20 20 Blood Pressure 122/75 122/83 Pulse Oximetry 99 97 Intake/Output Intake/Output: Intake & Output 08/19/24 08/20/24 08/21/24 08/22/24 23:59 23:59 23:59 23:59 Intake Total 2485.4 2703.9 630 Output Total 1425 Balance 2485.4 1278.9 630 Meds/Results Medications: Active Medications Generic Name Dose Route Start Last Admin Trade Name Freq PRN Reason Stop Dose Admin Acetaminophen 650 mg 08/20/24 21:43 08/21/24 11:46 Acetaminophen 325 Mg Tablet PO 650 mg Q6H PRN Administration Mild Pain (1-3) or Fever Hydrocodone Bitart/Acetaminophen 1 tab 08/20/24 21:43 Hydrocodone/Acetaminophen (*Crx) 5-325 Mg Tablet PO Q6H PRN Pain Rated 4-6 Calcium Carbonate 200 mg 08/21/24 17:45 08/22/24 10:16 Calcium Carbonate (Tums) 500 Mg (200 Mg Elemental) PO 200 mg Q6H PRN Administration Indigestion Dextrose 12.5 gm 08/21/24 07:46 Dextrose 50% 25 Gm/50 Ml Syringe IV PUSH PRN PRN Hypoglycemia Protocol Glucagon 1 mg 08/21/24 07:46 Glucagon For Inj 1 Mg Vial IM PRN PRN Hypoglycemia Protocol Glucose 15 gm 08/21/24 07:46 Glucose Oral Gel 15 Gm Of Glucse In 37.5 Gm Tube PO PRN PRN Hypoglycemia Protocol Hydromorphone HCl 0.25 mg 08/22/24 11:45 Hydromorphone Hcl Inj (*Crx) 2 Mg/Ml Vial IV PUSH Q3H PRN Pain Rated 7-10 Piperacillin/Tazobactam/Dextrose 3.375 gm in 50 mls @ 100 mls/hr 08/21/24 06:00 08/22/24 06:21 Zosyn 3.375 Gm/Ns 50 Ml IVPB 100 mls/hr Q6HR VENTURA Administration Dextrose 1,000 mls @ 100 mls/hr 08/21/24 07:46 Dextrose 5% 1,000 Ml IVPB PRN PRN Hypoglycemia Protocol Insulin Aspart 1 - 3 units 08/21/24 21:00 08/21/24 21:31 Insulin Aspart (*Bkc) 100 Units/Ml SUB-Q 1 units HS VENTURA Administration Protocol Insulin Aspart 3 - 6 units 08/21/24 08:00 08/22/24 08:42 Insulin Aspart (*Bkc) 100 Units/Ml SUB-Q Not Given TIDWM VENTURA Protocol Insulin Glargine 20 units 08/22/24 09:00 08/22/24 08:42 Insulin Glargine (*Bkc) 100 Units/Ml SUB-Q 20 units DAILY VENTURA Administration Lisinopril 20 mg 08/21/24 10:15 08/22/24 08:41 Lisinopril 20 Mg Tablet PO 20 mg DAILY VENTURA Administration Lorazepam 0.5 mg 08/22/24 11:48 Lorazepam Inj (*Crx) 2 Mg/Ml Vial IV PUSH Q6H PRN Anxiety Pantoprazole Sodium 40 mg 08/21/24 21:00 08/22/24 08:41 Pantoprazole Sodium Iv 40 Mg Vial IV PUSH 40 mg Q12HR VENTURA Administration Prochlorperazine Edisylate 10 mg 08/22/24 11:49 Prochlorperazine Edisylate 10 Mg/2 Ml Vial IV PUSH Q6H PRN Nausea And Vomiting Sucralfate 1,000 mg 08/22/24 12:00 Sucralfate Susp 100 Mg/Ml 10 Ml Udc PO A[facility]S [facility] Radiology Results: ITS Impressions Abdomen/Pelvis CT 08/20/24 18:28 IMPRESSION: Findings suggesting a murphy colitis, as detailed above. Abdomen Ultrasound 08/22/24 00:12 IMPRESSION: Fat infiltration. Focal area of decreased echogenicity most likely area of fat sparing. Follow-up advised. Otherwise, normal limited abdominal ultrasound. Labs Labs: Laboratory Results - last 24 hr 08/21/24 08/21/24 08/21/24 14:51 16:14 20:25 WBC RBC Hgb Hct MCV MCH MCHC RDW Plt Count MPV Immature Gran % (Auto) Neut % (Auto) Lymph % (Auto) [facility] % (Auto) Eos % (Auto) Baso % (Auto) Lymph # (Auto) [facility] # (Auto) Eos # (Auto) Baso # (Auto) Abs Immat Gran (auto) Absolute Neuts (auto) Absolute Nucleated RBC Nucleated RBC % Sodium 134 L Potassium 3.8 Chloride 103 Carbon Dioxide 22 Anion Gap 9 BUN 7 L Creatinine 0.73 Estim Creat Clear Calc 129 Estimated GFR > 60 Glucose 260 H POC Capillary Glucose 281 H 246 H Calcium 8.5 Phosphorus Magnesium 08/22/24 08/22/24 08/22/24 00:15 06:41 07:46 WBC 9.7 RBC 4.91 Hgb 14.5 Hct 43.3 MCV 88.2 MCH 29.5 MCHC 33.5 RDW 12.6 Plt Count 307 MPV 9.3 Immature Gran % (Auto) 0.3 Neut % (Auto) 50.8 Lymph % (Auto) 41.4 [facility] % (Auto) 6.0 Eos % (Auto) 1.1 Baso % (Auto) 0.4 Lymph # (Auto) 4.[address] [facility] # (Auto) 0.6 Eos # (Auto) 0.1 Baso # (Auto) 0.0 Abs Immat Gran (auto) 0.03 Absolute Neuts (auto) 4.9 Absolute Nucleated RBC 0.000 Nucleated RBC % 0.0 Sodium 136 L Potassium 3.4 Chloride 104 Carbon Dioxide 23 Anion Gap 9 BUN 8 L Creatinine 0.83 Estim Creat Clear Calc 114 Estimated GFR > 60 Glucose 150 H POC Capillary Glucose 204 H 159 H Calcium 8.6 Phosphorus 4.4 Magnesium 1.8 08/22/24 11:08 WBC RBC Hgb Hct MCV MCH MCHC RDW Plt Count MPV Immature Gran % (Auto) Neut % (Auto) Lymph % (Auto) [facility] % (Auto) Eos % (Auto) Baso % (Auto) Lymph # (Auto) [facility] # (Auto) Eos # (Auto) Baso # (Auto) Abs Immat Gran (auto) Absolute Neuts (auto) Absolute Nucleated RBC Nucleated RBC % Sodium Potassium Chloride Carbon Dioxide Anion Gap BUN Creatinine Estim Creat Clear Calc Estimated GFR Glucose POC Capillary Glucose 304 H Calcium Phosphorus Magnesium
[2024-08-22] MEDS: INSULIN ASPART (*BKC) 100 UNITS/ML SUB-Q ×2 (12:02→16:36)
[2024-08-22] MEDS: LORazepam INJ (*CRX) 2 MG/ML VIAL 0.5 MG IV PUSH (12:04)
[2024-08-22] MEDS: SUCRALFATE SUSP 100 MG/ML 10 ML UDC 1000 MG PO ×3 (12:05→20:23)
[2024-08-22 13:41] VITALS: BP 132/86; PULSE 82; RESP 18; TEMP 36.4; O2SAT 97
[2024-08-22 16:23] LABS: Glucose Point of Care 222 mg/dl (65-105)
[2024-08-22] MEDS: HYDROmorphone HCL INJ (*CRX) 2 MG/ML VIAL 0.25 MG IV PUSH (16:32)
[2024-08-22] MEDS: PROCHLORPERAZINE EDISYLATE 10 MG/2 ML VIAL IV PUSH (16:35)
[2024-08-22 20:29] LABS: Glucose Point of Care 179 mg/dl (65-105)
[2024-08-22 22:00] VITALS: BP 123/74; PULSE 65; RESP 14; TEMP 36.2; O2SAT 98
[2024-08-22 23:18] VITALS: PULSE 100; RESP 20; O2SAT 95
[2024-08-23] MEDS: PIPERACILLN/TAZ 3.375GM/NS50ML 3.375 GM/50 ML BAG IVPB ×3 (05:06→16:52)
[2024-08-23] MEDS: SUCRALFATE SUSP 100 MG/ML 10 ML UDC 1000 MG PO ×4 (05:06→20:44)
[2024-08-23 05:58] VITALS: BP 121/85; PULSE 66; RESP 14; TEMP 36.1; O2SAT 98
[2024-08-23 06:32] LABS: Basophils Absolute Auto 0.1 K/mm3 (0.0-0.1); Basophils Percent Auto 0.5 % (0.2-1.2); Eosinophils Absolute Auto 0.2 K/mm3 (0-0.3); Eosinophils Percent Auto 2.2 % (0-4.4); Hemoglobin 14.9 g/dL (14.0-18.0); Immature Granulocyte Absolute 0.02 K/mm3 (0.00-0.031); Immature Granulocyte Percent A 0.2 % (0-0.5); Lymphocytes Absolute Auto 3.89 K/mm3 (0.9-3.2); Lymphocytes Percent Auto 38.2 % (18.3-44.2); Mean Corpuscular HGB Conc 33.1 g/dl (32-36); Mean Corpuscular Hemoglobin 29.3 pg (26-34); Mean Corpuscular Volume 88.4 fl (80-100); Mean Platelet Volume 9.3 fl (7.4-10.4); Monocytes Absolute Auto 0.6 K/mm3 (0.1-0.6); Monocytes Percent Auto 5.8 % (2.6-8.5); Neutrophils Absolute Auto 5.4 K/mm3 (1.3-6.7); Neutrophils Percent Auto 53.1 % (45.5-73.1); Platelet Count Result 300 k/mm3 (150-375); Red Blood Count 5.09 M/mm3 (4.6-6.20); Red Cell Distribution Width 12.6 % (11.5-14.5); White Blood Count 10.2 K/mm3 (4.5-10.0)
[2024-08-23 06:42] LABS: Anion Gap 10 mmol/L (4-12); Blood Urea Nitrogen 10 mg/dL (9-20); Calcium 8.8 mg/dL (8.4-10.2); Carbon Dioxide 26 mmol/L (22-30); Chloride 101 mmol/L (98-107); Estimated CRCL calculation 100 ml/min; Estimated Glomerular Filt Rate > 60; Glucose 150 mg/dL (65-110); Magnesium 1.8 mg/dL (1.6-2.3); Phosphorus 3.6 mg/dL (2.5-4.5); Potassium 3.2 mmol/L (3.4-5.0); Sodium 137 mmol/L (137-145)
[2024-08-23 07:59] LABS: Glucose Point of Care 165 mg/dl (65-105)
[2024-08-23 08:00] VITALS: O2SAT 99
[2024-08-23] MEDS: INSULIN GLARGINE (*BKC) 100 UNITS/ML 20 UNITS SUB-Q (08:35)
[2024-08-23] MEDS: POTASSIUM CHLORIDE 20 MEQ ER TABLET 40 MEQ PO ×2 (08:35→12:15)
[2024-08-23] MEDS: lisinopriL 20 MG TABLET PO (08:36)
[2024-08-23] MEDS: MAGNESIUM SULF 1 GM/D5W 100 ML 1 GM/100 ML BAG IVPB (10:15)
[2024-08-23] MEDS: LIDOCAINE 1% LOCAL INJ 2 ML AMPUL 5 ML INFILTRATE (10:16)
[2024-08-23] MEDS: PANTOPRAZOLE SODIUM IV 40 MG VIAL IV PUSH ×2 (10:16→20:44)
[2024-08-23] MEDS: HYDROmorphone HCL INJ (*CRX) 2 MG/ML VIAL 0.25 MG IV PUSH (10:18)
--- NOTE | 2024-08-23 10:50 | P.PNIM_ITS ---
Progress Note: A&P Assessment and Plan (1) Diabetic ketoacidosis: Qualifiers: Diabetes mellitus complication detail: without coma Diabetes mellitus type: type 2 Qualified Code(s): E11.10 - Type 2 diabetes mellitus with ketoacidosis without coma Code(s): E11.10 - Type 2 diabetes mellitus with ketoacidosis without coma Status: Acute Assessment and Plan: 08/20: Patient presented with nausea, vomiting, abdominal pain -was found to have diabetic ketoacidosis with hyperglycemia, elevated beta hydroxybutyrate from a elevated anion gap, metabolic acidosis -patient was adequately fluid-resuscitated, started on insulin infusion -this morning anion gap is closed, will transition to long-acting insulin Lantus and sliding scale insulin, -patient stated that he has not been taking his medications for roughly 2 months as he did not have medical insurance, he has attained insurance in a be more regular with his insulin -senior health educator and dietitian have been consulted -hemoglobin A1c was 10.0 this admission -08/22 FBS 150, advance to full liquids, bland, diabetic - 08/23 [id number] (2) Nausea and vomiting: Code(s): R11.2 - Nausea with vomiting, unspecified Status: Acute Assessment and Plan: * Recurrent with epigastric and substernal burning pain. * This is limiting stabilization of his diabetic control and requires resolution prior to discharge * Suspect esophagitis with possible gastritis/PUD; IBD less likely but suggested by colitis findings on CT * PRN prochlorperazine, PRN lorazepam, treat GERD * 08/23 sx's improving (3) GERD (gastroesophageal reflux disease): Code(s): K21.9 - Gastro-esophageal reflux disease without esophagitis Status: Acute Assessment and Plan: * BID PPI IV * Carafate liquid qid * PRN analgesics (4) Dysphagia: Code(s): R13.10 - Dysphagia, unspecified Status: Acute Assessment and Plan: * GI consultation for possible EGD (5) Chest pain: Code(s): R07.9 - Chest pain, unspecified Status: Acute Assessment and Plan: * Suspect due to GERD * 08/22 Repeat EKG due to risk factors for CAD: NSR, RAD, 1st degree AV block, LBBB (6) Elevated blood pressure reading: Code(s): R03.0 - Elevated blood-pressure reading, without diagnosis of hypertension Status: Acute Assessment and Plan: 08/22 controlled (7) Colitis: Code(s): K52.9 - Noninfective gastroenteritis and colitis, unspecified Status: Acute Assessment and Plan: Presented with abdominal pain CT scan of the abdomen and pelvis on admission showed Trace mural thickening and edema within the entirety of the colon with surrounding inflammatory change, findings suggesting a pancolitis Zosyn started 08/21 Clinically he does not have s/sx of colitis other than n/v, epigastric tenderness He would benefit from a screening colonoscopy as an outpatient (8) Diarrhea: Code(s): R19.7 - Diarrhea, unspecified Status: Acute Assessment and Plan: * Colitis vs drug side effect, doubt c diff (stool pending) * / probioitc ordered (9) Hypokalemia: Code(s): E87.6 - Hypokalemia Status: Acute Assessment and Plan: * Likely due to poor intake, GI losses * / PO KCl and f/u lab ordered Subjective Date/time seen: 08/23/24 10:50 Interval history: Recurrent nausea with emesis. Substernal burning. Was relieved by GI cocktail. Nausea relieved by prochlorperazine but not Zofran. Food or water tense to feel like it is stuck either in the suprasternal notch or substernal area. Distributes vomiting. He has not vomited blood. He has not passed blood. Other than sweating and anxiety associated with the vomiting he has not had any other symptoms. He denied exertional chest burning or discomfort. Denied shortness of breath. 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 He has not used any since admission. 5/ Tolerated oatmeal with mild substernal pain. Still feels as if he has a bubble in his throat. No emesis. Pain at midline catheter site (IV access lost overnight). Moderate aching pain. Loose stool x 4 this AM. No bleeding. Yellow color. States this occurs any time he receives antibiotics. Review of Systems Review of Systems: All systems reviewed & are unremarkable except as noted in HPI and below Exam Narrative: HEENT: PERRL, sclerae nonicteric, pharyngeal mucosa pink and intact NECK: No JVD CHEST: Clear to auscultation. Normal effort HEART: NL S1/S2, regular, no murmur ABDOMEN: BS+, soft, mild epigastric tenderness, no mass, no bruits EXTREMITIES: No cyanosis, edema, or clubbing, midline insertion site w/o erythema or drainage NEUROLOGIC: CN intact and symmetric to inspection MUSCULOSKELETAL: Tone and strength symmetric PSYCH: Alert. Oriented to person, place, and time Objective Data Vital Signs Vital Signs: Vital Signs - 24 hr 08/22/24 13:41 08/22/24 22:00 08/22/24 23:18 Temperature 97.6 F 97.1 F L Pulse Rate 82 65 100 Respiratory Rate 18 14 20 Blood Pressure 132/86 123/74 Pulse Oximetry 97 98 95 Oxygen Delivery Room Air Fraction of Inspired Oxygen 21 08/23/24 05:58 Temperature 96.9 F L Pulse Rate 66 Respiratory Rate 14 Blood Pressure 121/85 Pulse Oximetry 98 Oxygen Delivery Fraction of Inspired Oxygen Intake/Output Intake/Output: Intake & Output 08/20/24 08/21/24 08/22/24 08/23/24 23:59 23:59 23:59 23:59 Intake Total 2485.4 2703.9 1380 736 Output Total 1425 Balance 2485.4 1278.9 1380 736 Meds/Results Medications: Active Medications Generic Name Dose Route Start Last Admin Trade Name Freq PRN Reason Stop Dose Admin Acetaminophen 650 mg 08/20/24 21:43 08/21/24 11:46 Acetaminophen 325 Mg Tablet PO 650 mg Q6H PRN Administration Mild Pain (1-3) or Fever Hydrocodone Bitart/Acetaminophen 1 tab 08/20/24 21:43 Hydrocodone/Acetaminophen (*Crx) 5-325 Mg Tablet PO Q6H PRN Pain Rated 4-6 Calcium Carbonate 200 mg 08/21/24 17:45 08/22/24 10:16 Calcium Carbonate (Tums) 500 Mg (200 Mg Elemental) PO 200 mg Q6H PRN Administration Indigestion Dextrose 12.5 gm 08/21/24 07:46 Dextrose 50% 25 Gm/50 Ml Syringe IV PUSH PRN PRN Hypoglycemia Protocol Glucagon 1 mg 08/21/24 07:46 Glucagon For Inj 1 Mg Vial IM PRN PRN Hypoglycemia Protocol Glucose 15 gm 08/21/24 07:46 Glucose Oral Gel 15 Gm Of Glucse In 37.5 Gm Tube PO PRN PRN Hypoglycemia Protocol Hydromorphone HCl 0.25 mg 08/22/24 11:45 08/23/24 10:18 Hydromorphone Hcl Inj (*Crx) 2 Mg/Ml Vial IV PUSH 0.25 mg Q3H PRN Administration Pain Rated 7-10 Piperacillin/Tazobactam/Dextrose 3.375 gm in 50 mls @ 100 mls/hr 08/21/24 06:00 08/23/24 05:06 Zosyn 3.375 Gm/Ns 50 Ml IVPB 100 mls/hr Q6HR V[facility]A Administration Dextrose 1,000 mls @ 100 mls/hr 08/21/24 07:46 Dextrose 5% 1,000 Ml IVPB PRN PRN Hypoglycemia Protocol Insulin Aspart 1 - 3 units 08/21/24 21:00 08/22/24 20:23 Insulin Aspart (*Bkc) 100 Units/Ml SUB-Q Not Given HS V[facility]URA Protocol Insulin Aspart 3 - 6 units 08/21/24 08:00 08/23/24 08:36 Insulin Aspart (*Bkc) 100 Units/Ml SUB-Q Not Given TIDWM [facility] Protocol Insulin Glargine 20 units 08/22/24 09:00 08/23/24 08:35 Insulin Glargine (*Bkc) 100 Units/Ml SUB-Q 20 units DAILY VENTURA Administration Lisinopril 20 mg 08/21/24 10:15 08/23/24 08:36 Lisinopril 20 Mg Tablet PO 20 mg DAILY V[facility]URA Administration Lorazepam 0.5 mg 08/22/24 11:48 08/22/24 12:04 Lorazepam Inj (*Crx) 2 Mg/Ml Vial IV PUSH 0.5 mg Q6H PRN Administration Anxiety Pantoprazole Sodium 40 mg 08/21/24 21:00 08/23/24 10:16 Pantoprazole Sodium Iv 40 Mg Vial IV PUSH 40 mg Q12HR [facility]URA Administration Potassium Chloride 40 meq 08/23/24 13:00 Potassium Chloride 20 Meq Er Tablet PO 08/23/24 13:01 ONCE ONE Prochlorperazine Edisylate 10 mg 08/22/24 11:49 08/22/24 16:35 Prochlorperazine Edisylate 10 Mg/2 Ml Vial IV PUSH 10 mg Q6H PRN Administration Nausea And Vomiting Sucralfate 1,000 mg 08/22/24 12:00 08/23/24 10:20 Sucralfate Susp 100 Mg/Ml 10 Ml Udc PO 1,000 mg ACHS VENTURA Administration Radiology Results: ITS Impressions Abdomen/Pelvis CT 08/20/24 18:28 IMPRESSION: Findings suggesting a murphy colitis, as detailed above. Abdomen Ultrasound 08/22/24 00:12 IMPRESSION: Fat infiltration. Focal area of decreased echogenicity most likely area of fat sparing. Follow-up advised. Otherwise, normal limited abdominal ultrasound. Labs Labs: Laboratory Results - last 24 hr 08/22/24 08/22/24 08/22/24 11:08 16:18 20:13 WBC RBC Hgb Hct MCV MCH MCHC RDW Plt Count MPV Immature Gran % (Auto) Neut % (Auto) Lymph % (Auto) Young % (Auto) Eos % (Auto) Baso % (Auto) Lymph # (Auto) Young # (Auto) Eos # (Auto) Baso # (Auto) Abs Immat Gran (auto) Absolute Neuts (auto) Absolute Nucleated RBC Nucleated RBC % Sodium Potassium Chloride Carbon Dioxide Anion Gap BUN Creatinine Estim Creat Clear Calc Estimated GFR Glucose POC Capillary Glucose 304 H 222 H 179 H Calcium Phosphorus Magnesium 08/23/24 08/23/24 06:12 07:55 WBC 10.2 H RBC 5.09 Hgb 14.9 Hct 45.0 MCV 88.4 MCH 29.3 MCHC 33.1 RDW 12.6 Plt Count 300 MPV 9.3 Immature Gran % (Auto) 0.2 Neut % (Auto) 53.1 Lymph % (Auto) 38.2 Young % (Auto) 5.8 Eos % (Auto) 2.2 Baso % (Auto) 0.5 Lymph # (Auto) 3.89 H Young # (Auto) 0.6 Eos # (Auto) 0.2 Baso # (Auto) 0.1 Abs Immat Gran (auto) 0.02 Absolute Neuts (auto) 5.4 Absolute Nucleated RBC 0.000 Nucleated RBC % 0.0 Sodium 137 Potassium 3.2 L Chloride 101 Carbon Dioxide 26 Anion Gap 10 BUN 10 Creatinine 0.96 Estim Creat Clear Calc 100 Estimated GFR > 60 Glucose 150 H POC Capillary Glucose 165 H Calcium 8.8 Phosphorus 3.6 Magnesium 1.8
[2024-08-23] MEDS: LORazepam INJ (*CRX) 2 MG/ML VIAL 0.5 MG IV PUSH ×2 (11:21→22:56)
[2024-08-23 11:57] LABS: Glucose Point of Care 239 mg/dl (65-105)
[2024-08-23] MEDS: INSULIN ASPART (*BKC) 100 UNITS/ML SUB-Q ×3 (12:08→20:44)
[2024-08-23] MEDS: SACCHAROMYCES BOULARDII 250 MG CAPSULE PO ×2 (12:10→16:51)
--- NOTE | 2024-08-23 13:35 | P.CONGI_ITS ---
Assessment and Plan Assessment and plan (1) Nausea and vomiting: Code(s): R11.2 - Nausea with vomiting, unspecified Status: Acute Assessment and Plan: this has improved but lately with more gerd symptoms and sometimes choking sensation after eating will do EGD tomorrow to assess if esophagitis, pud, etc he has uncontrolled DM and will need to be more compliant with meds (2) GERD (gastroesophageal reflux disease): Code(s): K21.9 - Gastro-esophageal reflux disease without esophagitis Status: Acute Assessment and Plan: egd tomorrow probably will need ppi (3) Dysphagia: Code(s): R13.10 - Dysphagia, unspecified Status: Acute (4) Diabetic ketoacidosis: Qualifiers: Diabetes mellitus complication detail: without coma Diabetes mellitus type: type 2 Qualified Code(s): E11.10 - Type 2 diabetes mellitus with ketoacidosis without coma Code(s): E11.10 - Type 2 diabetes mellitus with ketoacidosis without coma Status: Acute Assessment and Plan: treated (5) Uncontrolled diabetes mellitus: Status: Acute (6) Abnormal CT scan, colon: Code(s): R93.3 - Abnormal findings on diagnostic imaging of other parts of digestive tract Status: Acute Assessment and Plan: ? colitis, had some diarrhea probably abx can be discontinued, he is comfortable, no blood in stool will arrange colonoscopy in 6-8 weeks since never had one GI Consult Note Consult date/time: 08/23/24 13:35 Reason for consult: n/v, gerd, dysphagia HPI: Jigar Velez is a 49 year old male with past medical history of diabetes, obesity- he could not afford use insulin for almost a month for lack of insurance and came to the ED on 08/20/2024 with nausea, vomiting, abdominal pain. Admitted to ICU with DKA which was treated and resolved now. Admission labs WBC count of 12.7, CO2 of 17, anion gap of 19. Electrolytes were within normal limits. Hemoglobin A1c was 10.0, LFTs are within normal limits. CT scan of the abdomen and pelvis on admission showed Trace mural thickening and edema within the entirety of the colon with surrounding inflammatory change, findings suggesting a pancolitis. Patient was started on Zosyn (also had some diarrhea). He was moved to medical floor after DKA was treated. He has GERD for which normally uses mylanta or GI cocktail, not using ppi in regular basis, also sensation of bubble after eating at throat level and burb\ping , never had scopes. Review of Systems 2 Constitutional: Constitutional: Denies chills Eyes: Eyes: Denies blurry vision ENT: Reports Normal hearing present Cardiovascular: Cardiovascular: Denies leg edema Respiratory: Respiratory: Denies cough Gastrointestinal: Gastrointestinal: Reports abdominal pain, Reports bloating, Reports nausea and Reports vomiting Genitourinary: Genitourinary: Denies dysuria Musculoskeletal: Musculoskeletal: Denies neck pain Integumentary/Breasts: Skin/Breast: Denies rash Neurologic: Denies Abnormal speech present and Denies confusion [facility] Past Medical History Medical History (Updated 08/23/24 @ 13:38 by Aquiles Morales MD) Abnormal CT scan, colon Uncontrolled diabetes mellitus Morbid obesity Type 2 diabetes mellitus Surgical History Surgical History No pertinent past surgical history Family History Family History Grandparent Diabetes mellitus Mother Diabetes mellitus Father Asthma Social History Social History Social History: Surrogate medical decision maker: Marcelle Velez, mother. Code status: Full code. Smoking status: Former smoker Tobacco type: cigarettes Alcohol intake: never Substance use: former Substance use type: marijuana Last use: 08/16/2024 Do You Feel Safe in your Home?: Yes Lack of Transportation: No Lack of Food: Never True Current Housing: I Have Housing Concerned About Future Housing: No Difficulty Paying Gas/Electric Bills: No Difficulty Paying for Meds: YES Currently Unemployed: No Education: Decline to Answer Difficulty w/ Childcare or Family Care: No Additional living arrangements comments: Lives with family in [place]. 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 Spiritual care concerns: No Meds Home Medications and Allergies Home Medications ?Medication ?Instructions ?Recorded ?Confirmed ?Type blood sugar diagnostic (OneTouch #1 pkg 04/07/24 08/22/24 Rx Verio test strips) blood-glucose meter (OneTouch #1 pkg 04/07/24 08/22/24 Rx Verio Flex Meter) insulin aspart U-100 100 unit/mL 3 - 6 unit subcut TIDWM #1 mL 04/07/24 08/20/24 Rx subcutaneous solution (Novolog U-100 Insulin aspart) insulin aspart U-100 100 unit/mL 10 unit (0.1 mL) subcut TIDWM #1 04/07/24 08/20/24 Rx subcutaneous solution (Novolog vial U-100 Insulin aspart) insulin glargine 100 unit/mL 23 unit (0.23 mL) subcut HS #1 vial 04/07/24 08/20/24 Rx subcutaneous solution (Lantus U-100 Insulin) lancets 30 gauge (OneTouch Delica #1 pkg 04/07/24 08/22/24 Rx Plus Lancet) lisinopril 20 mg tablet 20 mg PO DAILY #30 tabs 04/07/24 08/20/24 Rx Allergies Allergy/AdvReac Type Severity Reaction Status Date / Time No Known Allergies Allergy Verified 08/20/24 19:38 Vital Signs Vital Signs - 24 hr 08/22/24 13:41 08/22/24 22:00 08/22/24 23:18 Temperature 97.6 F 97.1 F L Pulse Rate 82 65 100 Respiratory Rate 18 14 20 Blood Pressure 132/86 123/74 Pulse Oximetry 97 98 95 Oxygen Delivery Room Air Fraction of Inspired Oxygen 21 08/23/24 05:58 Temperature 96.9 F L Pulse Rate 66 Respiratory Rate 14 Blood Pressure 121/85 Pulse Oximetry 98 Oxygen Delivery Fraction of Inspired Oxygen Exam 2 Const: General: comfortable and no acute distress HENMT: Face/Nose/Sinus: Normal nares present Eyes: General: appearance normal, both eyes and all related structures Neck: Neck: no JVD Resp: Auscultation: clear to auscultation bilaterally Cardio: Rate: regular rate Rhythm: regular rhythm GI: Inspection: non-distended GI Palp: Yes Soft to palpation and No Tenderness to palpation present (GI) Auscultation: normal bowel sounds Skin: General skin exam: normal color Neuro: Speech: normal speech Extrem: General: normal to inspection Psych: Mental Status: mental status grossly normal Results Labs 08/23/24 06:12 08/23/24 06:12 Labs: Short CBC 08/23/24 Range/Units 06:12 WBC 10.2 H (4.5-10.0) K/mm3 Hgb 14.9 (14.0-18.0) g/dL Hct 45.0 (42.0-52.0) % Plt Count 300 (150-375) k/mm3 BMP 08/23/24 06:12 Sodium 137 Potassium 3.2 L Chloride 101 Carbon Dioxide 26 BUN 10 Creatinine 0.96 Glucose 150 H Calcium 8.8
[2024-08-23 14:00] VITALS: BP 139/84; PULSE 70; RESP 18; TEMP 36.2; O2SAT 99
[2024-08-23] MEDS: HYDROcodone/acetaminophen (*CRX) 5-325 MG TABLET 1 TAB PO ×2 (14:17→20:46)
[2024-08-23 16:44] LABS: Glucose Point of Care 257 mg/dl (65-105)
[2024-08-23 21:00] LABS: Glucose Point of Care 238 mg/dl (65-105)
[2024-08-23 21:15] VITALS: BP 120/107; PULSE 65; RESP 14; TEMP 36.2; O2SAT 99
[2024-08-23 21:42] LABS: Toxigenic C. Diff NEGATIVE (NEGATIVE)
[2024-08-24] VITALS (8 sets, daily range): BP systolic 101–156; BP diastolic 58–99; PULSE 60–73; RESP 14–23; TEMP 35.7–36.4; O2SAT 96–100
[2024-08-24 06:06] LABS: Glucose Point of Care 155 mg/dl (65-105)
[2024-08-24 06:26] LABS: Anion Gap 9 mmol/L (4-12); Blood Urea Nitrogen 10 mg/dL (9-20); Calcium 8.4 mg/dL (8.4-10.2); Carbon Dioxide 23 mmol/L (22-30); Chloride 104 mmol/L (98-107); Estimated CRCL calculation 119 ml/min; Estimated Glomerular Filt Rate > 60; Glucose 140 mg/dL (65-110); Potassium 3.6 mmol/L (3.4-5.0); Sodium 136 mmol/L (137-145)
[2024-08-24 07:40] LABS: Glucose Point of Care 148 mg/dl (65-105)
[2024-08-24 11:47] LABS: Glucose Point of Care 151 mg/dl (65-105)
[2024-08-24] MEDS: PANTOPRAZOLE SODIUM IV 40 MG VIAL IV PUSH (11:54)
[2024-08-24] MEDS: lisinopriL 20 MG TABLET PO (12:11)
[2024-08-24] MEDS: SACCHAROMYCES BOULARDII 250 MG CAPSULE PO ×2 (12:23→17:28)
--- NOTE | 2024-08-24 12:26 | P.PNIM_ITS ---
Progress Note: A&P Assessment and Plan (1) Diabetic ketoacidosis: Qualifiers: Diabetes mellitus complication detail: without coma Diabetes mellitus type: type 2 Qualified Code(s): E11.10 - Type 2 diabetes mellitus with ketoacidosis without coma Code(s): E11.10 - Type 2 diabetes mellitus with ketoacidosis without coma Status: Acute Assessment and Plan: 08/20: Patient presented with nausea, vomiting, abdominal pain -was found to have diabetic ketoacidosis with hyperglycemia, elevated beta hydroxybutyrate from a elevated anion gap, metabolic acidosis -patient was adequately fluid-resuscitated, started on insulin infusion -this morning anion gap is closed, will transition to long-acting insulin Lantus and sliding scale insulin, -patient stated that he has not been taking his medications for roughly 2 months as he did not have medical insurance, he has attained insurance in a be more regular with his insulin -simulation educator and dietitian have been consulted -hemoglobin A1c was 10.0 this admission -08/22 FBS 150, advance to full liquids, bland, diabetic - 08/23 [id number] (2) Nausea and vomiting: Code(s): R11.2 - Nausea with vomiting, unspecified Status: Acute Assessment and Plan: * Recurrent with epigastric and substernal burning pain. * This is limiting stabilization of his diabetic control and requires resolution prior to discharge * Suspect esophagitis with possible gastritis/PUD; IBD less likely but suggested by colitis findings on CT * PRN prochlorperazine, PRN lorazepam, treat GERD * 08/23 sx's improving (3) GERD (gastroesophageal reflux disease): Code(s): K21.9 - Gastro-esophageal reflux disease without esophagitis Status: Acute Assessment and Plan: * BID PPI IV * Carafate liquid qid * PRN analgesics (4) Dysphagia: Code(s): R13.10 - Dysphagia, unspecified Status: Acute Assessment and Plan: * GI consultation for possible EGD (5) Chest pain: Code(s): R07.9 - Chest pain, unspecified Status: Acute Assessment and Plan: * Suspect due to GERD * 08/22 Repeat EKG due to risk factors for CAD: NSR, RAD, 1st degree AV block, LBBB (6) Elevated blood pressure reading: Code(s): R03.0 - Elevated blood-pressure reading, without diagnosis of hypertension Status: Acute Assessment and Plan: 08/22 controlled (7) Colitis: Code(s): K52.9 - Noninfective gastroenteritis and colitis, unspecified Status: Acute Assessment and Plan: Presented with abdominal pain CT scan of the abdomen and pelvis on admission showed Trace mural thickening and edema within the entirety of the colon with surrounding inflammatory change, findings suggesting a pancolitis Zosyn started 08/21 Clinically he does not have s/sx of colitis other than n/v, epigastric tenderness He would benefit from a screening colonoscopy as an outpatient (8) Diarrhea: Code(s): R19.7 - Diarrhea, unspecified Status: Acute Assessment and Plan: * Colitis vs drug side effect, doubt c diff (stool pending) * / probioitc ordered (9) Hypokalemia: Code(s): E87.6 - Hypokalemia Status: Acute Assessment and Plan: * Likely due to poor intake, GI losses * / PO KCl and f/u lab ordered Plan patient continue to c/o abdomen pain and describes his symptoms as GERD and seen by GI and scheduled for EGD today, patient was admitted with DKA and A1c 10, patient is being treated with long and short acting insulin, seen by nurse informatics educator and further recommendation to follow. Subjective Date/time seen: 08/24/24 12:26 Interval history: Recurrent nausea with emesis. Substernal burning. Was relieved by GI cocktail. Nausea relieved by prochlorperazine but not Zofran. Food or water tense to feel like it is stuck either in the suprasternal notch or substernal area. Distributes vomiting. He has not vomited blood. He has not passed blood. Other than sweating and anxiety associated with the vomiting he has not had any other symptoms. He denied exertional chest burning or discomfort. Denied shortness of breath. 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 He has not used any since admission. 5/4 Tolerated oatmeal with mild substernal pain. Still feels as if he has a bubble in his throat. No emesis. Pain at midline catheter site (IV access lost overnight). Moderate aching pain. Loose stool x 4 this AM. No bleeding. Yellow color. States this occurs any time he receives antibiotics. patient continue to c/o abdomen pain and describes his symptoms as GERD and seen by GI and scheduled for EGD today, patient was admitted with DKA and A1c 10, patient is being treated with long and short acting insulin, seen by nurse informatics educator and further recommendation to follow. Review of Systems Review of Systems: All systems reviewed & are unremarkable except as noted in HPI and below Exam Narrative: Morbidly obese Patient is comfortable, NAD HEENT: eyes are clear and none icteric LUNGS:CTA HEART: RR S1S2 ABD: BS+, Soft and nontender Lower extremities: no edema SKIN: nonjaundiced Neuro: grossly intact. Objective Data Vital Signs Vital Signs: Vital Signs - 24 hr 08/23/24 14:00 08/23/24 21:15 08/24/24 06:00 Temperature 36.2 C L 36.2 C L 36.2 C L Pulse Rate 70 65 60 Respiratory Rate 18 14 16 Blood Pressure 139/84 120/107 H 126/95 H Pulse Oximetry 99 99 99 Intake/Output Intake/Output: Intake & Output 08/21/24 08/22/24 08/23/24 08/24/24 23:59 23:59 23:59 23:59 Intake Total 2703.9 1380 2316 150 Output Total 1425 Balance 1278.9 1380 2316 150 Meds/Results Medications: Active Medications Generic Name Dose Route Start Last Admin Trade Name Freq PRN Reason Stop Dose Admin Acetaminophen 650 mg 08/20/24 21:43 08/21/24 11:46 Acetaminophen 325 Mg Tablet PO 650 mg Q6H PRN Administration Mild Pain (1-3) or Fever Hydrocodone Bitart/Acetaminophen 1 tab 08/20/24 21:43 08/23/24 20:46 Hydrocodone/Acetaminophen (*Crx) 5-325 Mg Tablet PO 1 tab Q6H PRN Administration Pain Rated 4-6 Calcium Carbonate 200 mg 08/21/24 17:45 08/22/24 10:16 Calcium Carbonate (Tums) 500 Mg (200 Mg Elemental) PO 200 mg Q6H PRN Administration Indigestion Dextrose 12.5 gm 08/21/24 07:46 Dextrose 50% 25 Gm/50 Ml Syringe IV PUSH PRN PRN Hypoglycemia Protocol Glucagon 1 mg 08/21/24 07:46 Glucagon For Inj 1 Mg Vial IM PRN PRN Hypoglycemia Protocol Glucose 15 gm 08/21/24 07:46 Glucose Oral Gel 15 Gm Of Glucse In 37.5 Gm Tube PO PRN PRN Hypoglycemia Protocol Hydromorphone HCl 0.25 mg 08/22/24 11:45 08/23/24 10:18 Hydromorphone Hcl Inj (*Crx) 2 Mg/Ml Vial IV PUSH 0.25 mg Q3H PRN Administration Pain Rated 7-10 Dextrose 1,000 mls @ 100 mls/hr 08/21/24 07:46 Dextrose 5% 1,000 Ml IVPB PRN PRN Hypoglycemia Protocol Insulin Aspart 1 - 3 units 08/21/24 21:00 08/23/24 20:44 Insulin Aspart (*Bkc) 100 Units/Ml SUB-Q 2 units HS VENTURA Administration Protocol Insulin Aspart 3 - 6 units 08/21/24 08:00 08/24/24 12:12 Insulin Aspart (*Bkc) 100 Units/Ml SUB-Q Not Given TIDWM VENTURA Protocol Insulin Glargine 20 units 08/22/24 09:00 08/23/24 08:35 Insulin Glargine (*Bkc) 100 Units/Ml SUB-Q 20 units DAILY VENTURA Administration Lisinopril 20 mg 08/21/24 10:15 08/24/24 12:11 Lisinopril 20 Mg Tablet PO 20 mg DAILY VENTURA Administration Lorazepam 0.5 mg 08/22/24 11:48 08/23/24 22:56 Lorazepam Inj (*Crx) 2 Mg/Ml Vial IV PUSH 0.5 mg Q6H PRN Administration Anxiety Pantoprazole Sodium 40 mg 08/21/24 21:00 08/24/24 11:54 Pantoprazole Sodium Iv 40 Mg Vial IV PUSH 40 mg Q12HR VENTURA Administration Prochlorperazine Edisylate 10 mg 08/22/24 11:49 08/22/24 16:35 Prochlorperazine Edisylate 10 Mg/2 Ml Vial IV PUSH 10 mg Q6H PRN Administration Nausea And Vomiting Saccharomyces Boulardii 250 mg 08/23/24 13:00 08/24/24 12:23 Saccharomyces Boulardii 250 Mg Capsule PO 250 mg TID VENTURA Administration Sodium Chloride 10 ml 08/24/24 14:00 Saline Lock Flush IV PUSH Q8HR VENTURA Sodium Chloride 10 ml 08/24/24 11:29 Saline Lock Flush IV PUSH PRN PRN Flush Sodium Chloride 20 ml 08/24/24 11:29 Saline Lock Flush IV PUSH PRN PRN after blood draws Sucralfate 1,000 mg 08/22/24 12:00 08/24/24 12:12 Sucralfate Susp 100 Mg/Ml 10 Ml Udc PO 1,000 mg ACHS VENTURA Administration Radiology Results: ITS Impressions Abdomen/Pelvis CT 08/20/24 18:28 IMPRESSION: Findings suggesting a murphy colitis, as detailed above. Abdomen Ultrasound 08/22/24 00:12 IMPRESSION: Fat infiltration. Focal area of decreased echogenicity most likely area of fat sparing. Follow-up advised. Otherwise, normal limited abdominal ultrasound. Labs Labs: Laboratory Results - last 24 hr 08/23/24 08/23/24 08/23/24 16:40 20:27 20:35 Sodium Potassium Chloride Carbon Dioxide Anion Gap BUN Creatinine Estim Creat Clear Calc Estimated GFR Glucose POC Capillary Glucose 257 H 238 H Calcium Magnesium C. difficile (PCR) Negative 08/24/24 08/24/24 08/24/24 05:30 05:50 07:31 Sodium 136 L Potassium 3.6 Chloride 104 Carbon Dioxide 23 Anion Gap 9 BUN 10 Creatinine 0.80 Estim Creat Clear Calc 119 Estimated GFR > 60 Glucose 140 H POC Capillary Glucose 155 H 148 H Calcium 8.4 Magnesium 2.0 C. difficile (PCR) 08/24/24 11:37 Sodium Potassium Chloride Carbon Dioxide Anion Gap BUN Creatinine Estim Creat Clear Calc Estimated GFR Glucose POC Capillary Glucose 151 H Calcium Magnesium C. difficile (PCR) Quality VTE Prophylaxis VTE prophylaxis: mechanical ordered
[2024-08-24 14:52] LABS: Glucose Point of Care 148 mg/dl (65-105)
--- NOTE | 2024-08-24 14:59 | WPDANESEPPF ---
Anes - Initial Pre Proc Eval Procedure: Operation Date: 08/24/24 16:30 Proposed Procedures p Esophagogastroduodenoscopy - Aquiles Morales MD Date/Time: 08/24/24 14:59 Surgeon: Marga Muir MD Pre Op Diagnosis: DKA, colitis Patient Data Age: 49 Gender: M Height: 1.68 m Weight: 116 kg Last Vital Signs Temp 96.3 F L 08/24/24 14:00 Pulse 67 08/24/24 14:00 Resp 18 08/24/24 14:00 BP 150/81 H 08/24/24 14:00 Pulse Ox 99 08/24/24 14:00 O2 Del Method Room Air 08/23/24 08:00 FiO2 21 08/22/24 23:18 Allergies Allergy/AdvReac Type Severity Reaction Status Date / Time No Known Allergies Allergy Verified 08/24/24 14:53 Home Medications ?Medication ?Instructions ?Recorded ?Confirmed ?Type blood sugar diagnostic (OneTouch #1 pkg 04/07/24 08/22/24 Rx Verio test strips) blood-glucose meter (OneTouch #1 pkg 04/07/24 08/22/24 Rx Verio Flex Meter) insulin aspart U-100 100 unit/mL 3 - 6 unit subcut TIDWM #1 mL 04/07/24 08/20/24 Rx subcutaneous solution (Novolog U-100 Insulin aspart) insulin aspart U-100 100 unit/mL 10 unit (0.1 mL) subcut TIDWM #1 04/07/24 08/20/24 Rx subcutaneous solution (Novolog vial U-100 Insulin aspart) insulin glargine 100 unit/mL 23 unit (0.23 mL) subcut HS #1 vial 04/07/24 08/20/24 Rx subcutaneous solution (Lantus U-100 Insulin) lancets 30 gauge (OneTouch Delica #1 pkg 04/07/24 08/22/24 Rx Plus Lancet) lisinopril 20 mg tablet 20 mg PO DAILY #30 tabs 04/07/24 08/20/24 Rx Laboratory Tests 08/23/24 08/23/24 08/23/24 16:40 20:27 20:35 Sodium Potassium Chloride Carbon Dioxide Anion Gap BUN Creatinine Estim Creat Clear Calc Estimated GFR Glucose POC Capillary Glucose 257 H mg/dl 238 H mg/dl (65-105) (65-105) Calcium Magnesium C. difficile (PCR) Negative (NEGATIVE) 08/24/24 08/24/24 08/24/24 05:30 05:50 07:31 Sodium 136 L mmol/L (137-145) Potassium 3.6 mmol/L (3.4-5.0) Chloride 104 mmol/L (98-107) Carbon Dioxide 23 mmol/L (22-30) Anion Gap 9 mmol/L (4-12) BUN 10 mg/dL (9-20) Creatinine 0.80 mg/dL (0.7-1.3) Estim Creat Clear Calc 119 ml/min Estimated GFR > 60 (59 - ) Glucose 140 H mg/dL (65-110) POC Capillary Glucose 155 H mg/dl 148 H mg/dl (65-105) (65-105) Calcium 8.4 mg/dL (8.4-10.2) Magnesium 2.0 mg/dL (1.6-2.3) C. difficile (PCR) 08/24/24 08/24/24 11:37 14:49 Sodium Potassium Chloride Carbon Dioxide Anion Gap BUN Creatinine Estim Creat Clear Calc Estimated GFR Glucose POC Capillary Glucose 151 H mg/dl 148 H mg/dl (65-105) (65-105) Calcium Magnesium C. difficile (PCR) Patient hx anesthesia problems: none Family hx anesthesia problems: none Results Review: All pre-operative results and documents have been reviewed as part of the pre-operative evaluation. [facility] Past Medical History Medical History Abnormal CT scan, colon Uncontrolled diabetes mellitus Morbid obesity Type 2 diabetes mellitus Surgical History Surgical History No pertinent past surgical history Family History Family History Grandparent Diabetes mellitus Mother Diabetes mellitus Father Asthma Social History Social History Social History: Surrogate medical decision maker: Marcelle Velez, mother. Code status: Full code. Smoking status: Former smoker Tobacco type: cigarettes Alcohol intake: never Substance use: former Substance use type: marijuana Last use: 08/16/2024 Do You Feel Safe in your Home?: Yes Lack of Transportation: No Lack of Food: Never True Current Housing: I Have Housing Concerned About Future Housing: No Difficulty Paying Gas/Electric Bills: No Difficulty Paying for Meds: YES Currently Unemployed: No Education: Decline to Answer Difficulty w/ Childcare or Family Care: No Additional living arrangements comments: Lives with family in [place]. 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 Spiritual care concerns: No Anes - Eval Final PreProcedure Day of Procedure 08/24/24 14:59 Patient weight: morbidly obese Lungs: normal air movement Airway: Mallampati scale class II Neurological: alert and oriented Last oral intake: >/= 8 hours ASA classification: IV Emergent: no Anesthetic plan: proceed Anesthesia type and monitoring: general GIVS and standard monitoring Results Review: All pre-operative results and documents have been reviewed as part of the pre-operative evaluation. DM poorly controlled, BMI 41, had DKA on admission w N/V, now improved, for EGD. Informed Consent: The patient's anesthetic plan and its attendant risks and benefits were discussed with the patient/family/POA. Questions were solicited and answers provided to the satisfaction of the patient/family/POA.
[2024-08-24] MEDS: LACTATED RINGERS 1,000 ML 150 ML IV CONT (15:01)
[2024-08-24 15:47] LABS: Glucose Point of Care 150 mg/dl (65-105)
[2024-08-24 16:50] LABS: Glucose Point of Care 133 mg/dl (65-105)
[2024-08-24] MEDS: SALINE LOCK FLUSH 10 ML IV PUSH ×2 (17:26→21:05)
[2024-08-24] MEDS: HYDROcodone/acetaminophen (*CRX) 5-325 MG TABLET 1 TAB PO ×2 (18:17→21:04)
[2024-08-24] MEDS: PROCHLORPERAZINE EDISYLATE 10 MG/2 ML VIAL IV PUSH (18:17)
[2024-08-24 20:28] LABS: Glucose Point of Care 239 mg/dl (65-105)
[2024-08-24] MEDS: INSULIN ASPART (*BKC) 100 UNITS/ML SUB-Q (21:01)
[2024-08-24] MEDS: PANTOPRAZOLE 40 MG TABLET PO (21:01)
[2024-08-24] MEDS: SUCRALFATE SUSP 100 MG/ML 10 ML UDC 1000 MG PO (21:01)
[2024-08-24] MEDS: LORazepam INJ (*CRX) 2 MG/ML VIAL 0.5 MG IV PUSH (21:04)
[2024-08-25 05:24] VITALS: BP 105/63; PULSE 58; RESP 14; TEMP 36.2; O2SAT 97
[2024-08-25] MEDS: SUCRALFATE SUSP 100 MG/ML 10 ML UDC 1000 MG PO ×3 (06:04→15:41)
[2024-08-25] MEDS: SALINE LOCK FLUSH 10 ML IV PUSH (06:04)
[2024-08-25 06:15] LABS: Hematocrit 44.6 % (42.0-52.0); Hemoglobin 15.2 g/dL (14.0-18.0); Mean Corpuscular HGB Conc 34.1 g/dl (32-36); Mean Corpuscular Hemoglobin 29.5 pg (26-34); Mean Corpuscular Volume 86.6 fl (80-100); Mean Platelet Volume 9.4 fl (7.4-10.4); Platelet Count Result 306 k/mm3 (150-375); Red Blood Count 5.15 M/mm3 (4.6-6.20); Red Cell Distribution Width 12.2 % (11.5-14.5)
[2024-08-25 06:28] LABS: Anion Gap 10 mmol/L (4-12); Blood Urea Nitrogen 13 mg/dL (9-20); Calcium 8.9 mg/dL (8.4-10.2); Carbon Dioxide 23 mmol/L (22-30); Chloride 101 mmol/L (98-107); Estimated CRCL calculation 125 ml/min; Estimated Glomerular Filt Rate > 60; Glucose 170 mg/dL (65-110); Potassium 3.5 mmol/L (3.4-5.0); Sodium 134 mmol/L (137-145)
--- NOTE | 2024-08-25 07:49 | WPDANESPN ---
Anes - Prog Note Post-Op Date/Time: 08/25/24 07:49 Cardiovascular status: normal Respiratory status: normal Airway patency: baseline Mental status: baseline Post-Op hydration status: normal Vital Signs: Last Vital Signs Temp 36.2 C L 08/25/24 05:24 Pulse 58 L 08/25/24 05:24 Resp 14 08/25/24 05:24 BP 105/63 08/25/24 05:24 Pulse Ox 97 08/25/24 05:24 O2 Del Method Room Air 08/24/24 15:58 FiO2 21 08/24/24 08:00 Pain Score (VAS): 0 I/O: Intake & Output 08/24/24 08/24/24 08/25/24 15:59 23:59 07:59 Intake Total 50 240 Balance 50 240 Laboratory Tests 08/25/24 05:47 08/25/24 05:47 08/24/24 08/24/24 08/24/24 11:37 14:49 15:45 WBC RBC Hgb Hct MCV MCH MCHC RDW Plt Count MPV Sodium Potassium Chloride Carbon Dioxide Anion Gap BUN Creatinine Estim Creat Clear Calc Estimated GFR Glucose POC Capillary Glucose 151 H 148 H 150 H Calcium Magnesium 08/24/24 08/24/24 08/25/24 16:46 20:20 05:47 WBC 9.0 RBC 5.15 Hgb 15.2 Hct 44.6 MCV 86.6 MCH 29.5 MCHC 34.1 RDW 12.2 Plt Count 306 MPV 9.4 Sodium 134 L Potassium 3.5 Chloride 101 Carbon Dioxide 23 Anion Gap 10 BUN 13 Creatinine 0.75 Estim Creat Clear Calc 125 Estimated GFR > 60 Glucose 170 H POC Capillary Glucose 133 H 239 H Calcium 8.9 Magnesium 2.0 Post-procedural complaints: none Patient Feedback: Patient satisfied with anesthetic care.
[2024-08-25 08:00] VITALS: PULSE 58; RESP 14; O2SAT 97
[2024-08-25 11:25] LABS: Glucose Point of Care 266 mg/dl (65-105)
[2024-08-25] MEDS: INSULIN ASPART (*BKC) 100 UNITS/ML SUB-Q (11:25)
[2024-08-25] MEDS: INSULIN GLARGINE (*BKC) 100 UNITS/ML 20 UNITS SUB-Q (11:26)
[2024-08-25] MEDS: lisinopriL 20 MG TABLET PO (11:27)
[2024-08-25] MEDS: PANTOPRAZOLE 40 MG TABLET PO (11:27)
[2024-08-25] MEDS: SACCHAROMYCES BOULARDII 250 MG CAPSULE PO ×2 (11:27→11:37)
[2024-08-25 11:37] LABS: Glucose Point of Care 193 mg/dl (65-105)
[2024-08-25] MEDS: POTASSIUM CHLORIDE 20 MEQ ER TABLET 40 MEQ PO (11:52)
--- NOTE | 2024-08-25 12:51 | P.DS_ITS ---
DS: Admitting Diagnosis Discharge Date 08/25/24 Admitting Diagnosis DKA DS: Discharge Diagnosis Discharge Diagnosis (1) Diabetic ketoacidosis: Qualifiers: Diabetes mellitus complication detail: without coma Diabetes mellitus type: type 2 Qualified Code(s): E11.10 - Type 2 diabetes mellitus with ketoacidosis without coma Code(s): E11.10 - Type 2 diabetes mellitus with ketoacidosis without coma Status: Acute Assessment and Plan: 08/20: Patient presented with nausea, vomiting, abdominal pain -was found to have diabetic ketoacidosis with hyperglycemia, elevated beta hydroxybutyrate from a elevated anion gap, metabolic acidosis -patient was adequately fluid-resuscitated, started on insulin infusion -this morning anion gap is closed, will transition to long-acting insulin Lantus and sliding scale insulin, -patient stated that he has not been taking his medications for roughly 2 months as he did not have medical insurance, he has attained insurance in a be more regular with his insulin -nursing educator and dietitian have been consulted -hemoglobin A1c was 10.0 this admission -08/22 FBS 150, advance to full liquids, bland, diabetic - 08/23 [id number] (2) Nausea and vomiting: Code(s): R11.2 - Nausea with vomiting, unspecified Status: Acute Assessment and Plan: * Recurrent with epigastric and substernal burning pain. * This is limiting stabilization of his diabetic control and requires resolution prior to discharge * Suspect esophagitis with possible gastritis/PUD; IBD less likely but suggested by colitis findings on CT * PRN prochlorperazine, PRN lorazepam, treat GERD * 08/23 sx's improving (3) GERD (gastroesophageal reflux disease): Code(s): K21.9 - Gastro-esophageal reflux disease without esophagitis Status: Acute Assessment and Plan: * BID PPI IV * Carafate liquid qid * PRN analgesics (4) Dysphagia: Code(s): R13.10 - Dysphagia, unspecified Status: Acute Assessment and Plan: * GI consultation for possible EGD (5) Chest pain: Code(s): R07.9 - Chest pain, unspecified Status: Acute Assessment and Plan: * Suspect due to GERD * 08/22 Repeat EKG due to risk factors for CAD: NSR, RAD, 1st degree AV block, LBBB (6) Elevated blood pressure reading: Code(s): R03.0 - Elevated blood-pressure reading, without diagnosis of hypertension Status: Acute Assessment and Plan: / controlled (7) Colitis: Code(s): K52.9 - Noninfective gastroenteritis and colitis, unspecified Status: Acute Assessment and Plan: Presented with abdominal pain CT scan of the abdomen and pelvis on admission showed Trace mural thickening and edema within the entirety of the colon with surrounding inflammatory change, findings suggesting a pancolitis Zosyn started 08/21 Clinically he does not have s/sx of colitis other than n/v, epigastric tenderness He would benefit from a screening colonoscopy as an outpatient (8) Diarrhea: Code(s): R19.7 - Diarrhea, unspecified Status: Acute Assessment and Plan: * Colitis vs drug side effect, doubt c diff (stool pending) * / probioitc ordered (9) Hypokalemia: Code(s): E87.6 - Hypokalemia Status: Acute Assessment and Plan: * Likely due to poor intake, GI losses * / PO KCl and f/u lab ordered Plan patient continue to c/o abdomen pain and describes his symptoms as GERD and seen by GI and scheduled for EGD today, patient was admitted with DKA and A1c 10, patient is being treated with long and short acting insulin, seen by clinical systems educator and further recommendation to follow. DS: Summary Hospital Course Hospital Course: patient was admitted with DKA and A1c 10, as patient was not able to afford his insulin and had not taken the medication for sometime, patient was admitted in the ICU and treated by refrigeration installer with DKA protocol, his blood sugars corrected with long and short acting insulin, seen by clinical systems educator and discussed recommended to continue present treatment plan and patient can be discahrged to follow up with his primary care provider for further adjustment, patient continued to c/o abdomen pain and describes his symptoms as GERD and seen by GI and scheduled for EGD, which showed gastritis and patient is treated with PPI twice a day. patient is clinically stable, will discharge home today. Time Spent with Patient Time attestation: Total time spent providing and/or coordinating discharge services: Exam Narrative: Morbidly obese Patient is comfortable, NAD HEENT: eyes are clear and none icteric LUNGS:CTA HEART: RR S1S2 ABD: BS+, Soft and nontender Lower extremities: no edema SKIN: nonjaundiced Neuro: grossly intact. DS: Data Data Completed and Pending Pending studies at discharge: Pending at discharge 08/24/24 15:38 Surgical [PTH] Routine Labs on day of discharge: Labs from last 24 hours 08/25/24 08/25/24 08/25/24 11:23 07:52 05:47 WBC 9.0 RBC 5.15 Hgb 15.2 Hct 44.6 MCV 86.6 MCH 29.5 MCHC 34.1 RDW 12.2 Plt Count 306 MPV 9.4 Sodium 134 L Potassium 3.5 Chloride 101 Carbon Dioxide 23 Anion Gap 10 BUN 13 Creatinine 0.75 Estim Creat Clear Calc 125 Estimated GFR > 60 Glucose 170 H POC Capillary Glucose 266 H 193 H Calcium 8.9 Magnesium 2.0 08/24/24 08/24/24 08/24/24 20:20 16:46 15:45 WBC RBC Hgb Hct MCV MCH MCHC RDW Plt Count MPV Sodium Potassium Chloride Carbon Dioxide Anion Gap BUN Creatinine Estim Creat Clear Calc Estimated GFR Glucose POC Capillary Glucose 239 H 133 H 150 H Calcium Magnesium 08/24/24 14:49 WBC RBC Hgb Hct MCV MCH MCHC RDW Plt Count MPV Sodium Potassium Chloride Carbon Dioxide Anion Gap BUN Creatinine Estim Creat Clear Calc Estimated GFR Glucose POC Capillary Glucose 148 H Calcium Magnesium Discharge Plan Discharge Attending physician on discharge: Marga Muir Consulting providers: Susi Guevara; Aquiles Morales Discharging Clinician: Gigi García Patient Disposition: Home Activity: as tolerated Diet: diabetic Discharge Instructions: patient is instructed to follow discharge and dietary instruction from his clinical systems educator and follow up as scheduled, patient to follow up with his primary care provider as soon as possible. patient to follow up with his GI as scheduled, patient is instructed if any redevelop to go to nearest ER. Patient Instructions: Antibiotic Form, Lisinopril (By mouth), Diabetic Ketoacidosis (GEN), Basic Carbohydrate Counting (GEN), Meal Planning with Diabetes Exchanges (GEN), Managing Diabetes During Sick Days (GEN), Hypertension and Diabetes (GEN), What to Do if Your Blood Sugar is Low (GEN), Diabetes and Exercise (GEN), Type 2 Diabetes Management for Adults (GEN) Patient Language: Maltese Stand Alone Forms: General Discharge Information Follow-up/Referrals: Juan Rasmussen MD [Physician] - Aquiles Morales MD [Physician] - Discharge Medications: New calcium carbonate 500 mg calcium (1,250 mg) Tablet,Chewable 200 mg PO Q6H PRN (Reason: Indigestion) Qty: 30 0RF insulin glargine [Lantus U-100 Insulin] 100 unit/mL Solution 20 unit subcut DAILY Qty: 10 0RF insulin aspart U-100 [Novolog U-100 Insulin aspart] 100 unit/mL Solution 1 - 3 unit subcut HS Qty: 10 0RF Protocol: Insulin Corrective Moderate-Dose Condition: glucose < 70 mg/dl Dose/Route: Follow hypoglycemia orders Condition: glucose 70-200 mg/dl Dose/Route: No additional insulin Condition: glucose 201-250 mg/dl Dose/Route: 1 units sub-Q Condition: glucose 251-300 mg/dl Dose/Route: 2 units sub-Q Condition: glucose 301-350 mg/dl Dose/Route: 2 units sub-Q Condition: glucose 351-400 mg/dl Dose/Route: 3 units sub-Q Condition: glucose > 400 mg/dl Dose/Route: Call insulin aspart U-100 [Novolog U-100 Insulin aspart] 100 unit/mL Solution 3 - 6 unit subcut TIDWM Qty: 10 0RF Protocol: Insulin Corrective Moderate-Dose Condition: glucose < 70 mg/dl Dose/Route: Follow hypoglycemia orders Condition: glucose 70-200 mg/dl Dose/Route: No additional insulin Condition: glucose 201-250 mg/dl Dose/Route: 3 units sub-Q Condition: glucose 251-300 mg/dl Dose/Route: 4 units sub-Q Condition: glucose 301-350 mg/dl Dose/Route: 5 units sub-Q Condition: glucose 351-400 mg/dl Dose/Route: 6 units sub-Q Condition: glucose > 400 mg/dl Dose/Route: Call Protocol Text: *No Correction Dose at Bedtime* Saccharomyces boulardii [Florastor] 250 mg Capsule 250 mg PO TID Qty: 90 0RF sucralfate 100 mg/mL Suspension 1,000 mg PO ACHS Qty: 1000 0RF glucagon HCl [Glucagon (HCl) Emergency Kit] 1 mg recon soln 1 mg subcut Q20M PRN (Reason: hypoglycemia) Qty: 1 0RF Rx Instructions: until target blood sugar attained (DME) insulin syringe-needle U-100 0.3 mL 30 gauge x 5/16 syringe See Rx Instructions .Route Qty: 100 0RF Rx Instructions: As directed Continued lisinopril 20 mg Tablet 20 mg PO DAILY Qty: 30 1RF (DME) blood-glucose meter [OneTouch Verio Flex meter] Misc Qty: 1 0RF Rx Instructions: May substitute to in-stock meter and/or covered by insurance. Use As Directed (DME) lancets [OneTouch Delica Plus Lancet] 30 gauge misc Qty: 1 0RF Rx Instructions: May substitute to in-stock and/or covered by insurance lancets. Use As Directed (DME) OneTouch Verio test strips Strip Qty: 1 0RF Rx Instructions: May substitute to in-stock and/or covered by insurance strips. Use As Directed Discontinued insulin aspart U-100 [Novolog U-100 Insulin aspart] 100 unit/mL Solution 3 - 6 unit subcut TIDWM Qty: 1 0RF Protocol: Insulin Corrective Moderate-Dose Condition: glucose < 70 mg/dl Dose/Route: Follow hypoglycemia orders Condition: glucose 70-200 mg/dl Dose/Route: No additional insulin Condition: glucose 201-250 mg/dl Dose/Route: 3 units sub-Q Condition: glucose 251-300 mg/dl Dose/Route: 4 units sub-Q Condition: glucose 301-350 mg/dl Dose/Route: 5 units sub-Q Condition: glucose 351-400 mg/dl Dose/Route: 6 units sub-Q Condition: glucose > 400 mg/dl Dose/Route: Call MD Protocol Text: *No Correction Dose at Bedtime* insulin glargine [Lantus U-100 Insulin] 100 unit/mL Solution 23 unit subcut HS Qty: 1 4RF insulin aspart U-100 [Novolog U-100 Insulin aspart] 100 unit/mL Solution 10 unit subcut TIDWM Qty: 1 4RF No Action pantoprazole 40 mg tablet,delayed release (DR/EC) 40 mg PO Q12HR Qty: 60 2RF Date of admission: 08/24/24 13:40 Primary Care Provider: PHYSICIAN,INSPECTOR METAL FABRICATING Admitting Provider: Marga Muir Attending physician on admission: Marga Muir Condition: Stable
[2024-08-25] MEDS: HYDROcodone/acetaminophen (*CRX) 5-325 MG TABLET 1 TAB PO (15:40)
--- NOTE | 2024-08-25 16:14 | PC.NURSE ---
Patient Discharged home, reviewed new Insulin orders and how to manage BGL. Patient teaching for 30 min, questions answered. Patient understands to take Blood sugars 4 times daily, agrees to POC at home and to see a PCP for DM2 management. No further questions at this time. Sent scripts for needles and test strips to [facility], patient understands to call with any questions or problems with his medications or supplies. Did send extra Insulin needles, Alcohol wipes and bandages home with patient. Alert and Oriented, on Room air., voids spontaneously. Patient had mild pain 2/10 at DC in stomach. 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
--- NOTE | 2024-08-25 16:42 | WPDGIPROGNO ---
Progress Note: A&P Assessment and Plan (1) Gastritis: Code(s): K29.70 - Gastritis, unspecified, without bleeding Status: Acute Assessment and Plan: noted yesterday he is going home with ppi daily he can follow-up office in 4-6 weeks (2) Nausea and vomiting: Code(s): R11.2 - Nausea with vomiting, unspecified Status: Acute Assessment and Plan: resolved understood the importance to be compliant with DM treatment (3) Abnormal CT scan, colon: Code(s): R93.3 - Abnormal findings on diagnostic imaging of other parts of digestive tract Status: Acute Assessment and Plan: ? colitis but he is doing ok will do colonoscopy 6-8 weeks since he needs one anyway (4) Type 2 diabetes mellitus with hyperglycemia: Qualifiers: Diabetes mellitus alf insulin use: without alf use Qualified Code(s): E11.65 - Type 2 diabetes mellitus with hyperglycemia Code(s): E11.65 - Type 2 diabetes mellitus with hyperglycemia Status: Acute (5) Uncontrolled diabetes mellitus: Status: Acute Subjective Date/time seen: 08/25/24 16:01 Interval history: egd yesterday with erosive gastritis he is doing much better, no nausea and tolerating diet ready to go home Review of Systems Review of Systems: All systems reviewed & are unremarkable except as noted in HPI and below Exam Const: General: comfortable and no acute distress HENMT: Face/Nose/Sinus: Normal nares present Eyes: General: appearance normal, both eyes and all related structures Neck: Neck: no JVD Resp: Auscultation: clear to auscultation bilaterally Cardio: Rate: regular rate Rhythm: regular rhythm GI: Inspection: non-distended GI Palp: Yes Soft to palpation and No Tenderness to palpation present (GI) Skin: General skin exam: normal color Neuro: General: gait normal Speech: normal speech Extrem: General: normal to inspection Psych: Mental Status: mental status grossly normal Objective Data Vital Signs Vital Signs: Vital Signs - 24 hr 08/24/24 21:22 08/25/24 05:24 08/25/24 08:00 Temperature 97.6 F 97.2 F L Pulse Rate 70 58 L 58 L Respiratory Rate 14 14 14 Blood Pressure 147/87 H 105/63 Pulse Oximetry 98 97 97 Oxygen Delivery Room Air Fraction of Inspired Oxygen 21 Intake/Output Intake/Output: Intake & Output 08/22/24 08/23/24 08/24/24 08/25/24 23:59 23:59 23:59 23:59 Intake Total 1380 2316 440 480 Balance 1380 2316 440 480 Meds/Results Radiology Results: ITS Impressions Abdomen/Pelvis CT 08/20/24 18:28 IMPRESSION: Findings suggesting a murphy colitis, as detailed above. Abdomen Ultrasound 08/22/24 00:12 IMPRESSION: Fat infiltration. Focal area of decreased echogenicity most likely area of fat sparing. Follow-up advised. Otherwise, normal limited abdominal ultrasound. Labs Labs: Laboratory Results - last 24 hr 08/24/24 08/24/24 08/25/24 16:46 20:20 05:47 WBC 9.0 RBC 5.15 Hgb 15.2 Hct 44.6 MCV 86.6 MCH 29.5 MCHC 34.1 RDW 12.2 Plt Count 306 MPV 9.4 Sodium 134 L Potassium 3.5 Chloride 101 Carbon Dioxide 23 Anion Gap 10 BUN 13 Creatinine 0.75 Estim Creat Clear Calc 125 Estimated GFR > 60 Glucose 170 H POC Capillary Glucose 133 H 239 H Calcium 8.9 Magnesium 2.0 08/25/24 08/25/24 07:52 11:23 WBC RBC Hgb Hct MCV MCH MCHC RDW Plt Count MPV Sodium Potassium Chloride Carbon Dioxide Anion Gap BUN Creatinine Estim Creat Clear Calc Estimated GFR Glucose POC Capillary Glucose 193 H 266 H Calcium Magnesium
--- NOTE | 2024-08-31 13:04 | PCCDE ---
08/31/24 1:00 pm Attempted DM Courtesy follow up call. Message left included direct call back number. FJ
== END 2024-08-25 16:10 | disposition home or self-care (01) | DRG 420 ==
LOC: ANHED 18:24 → ANHICU 19:00 → ANH3MEDSUR 08-21 18:42
PROVIDERS: Emergency Medicine; Internal Medicine; Internal Medicine Gastroenterology; Student in an Organized Health Care Education/Training Program; Admitting Provider Internal Medicine; Emergency Provider Emergency Medicine; Visit Provider Family Medicine
PROC: 0DJ08ZZ Inspection of Upper Intestinal Tract, Via Natural or Artificial Opening Endoscopic (ICD-10-PCS; principal; 2024-08-24 16:30)
DX: E11.10 Type 2 diabetes mellitus with ketoacidosis without coma (principal); K52.9 Noninfective gastroenteritis and colitis, unspecified; K29.70 Gastritis, unspecified, without bleeding; K21.9 Gastro-esophageal reflux disease without esophagitis; E87.6 Hypokalemia; E66.01 Morbid (severe) obesity due to excess calories; R13.10 Dysphagia, unspecified; R03.0 Elevated blood-pressure reading, without diagnosis of hypertension; Z87.891 Personal history of nicotine dependence; Z79.4 Long term (current) use of insulin; Z79.85 Long-term (current) use of injectable non-insulin antidiabetic drugs
CPT/HCPCS: 36415; 36569; 36600; 74177; 76705; 80048; 80053; 81001; 82010; 82805; 82948; 83036; 83690; 83735; 84100; 85018; 85025; 85027; 87493; 88305; 93005; 96361; 96365; 96375; 99285; A9270; C1751; G0378; G0379; J0780; J1171; J1200; J1815; J1885; J2003; J2060; J2270; J2405; J2470; J2543; J2704; J3475; J3480; J7030; J7050; J7120; Q9967